=== PATIENT | female | born 1980 | race Caucasian/White ===

== ENCOUNTER 2017-01-24 09:06 | Emergency (ER) | payer OTHER ==
--- NOTE | 2017-01-24 09:49 | UC ---
Complaint Female HPI - HPI Summary HPI Summary: 36 yo female with a 4 day hx of dysuria /urgency and frequency hematuria x 1 this am no f/c no abd pain no n/v hx of pyelo hx of kidney stones - History Of Current Complaint Chief Complaint: UCGU Stated Complaint: URINARY Time Seen by Provider: 01/24/17 09:45 Hx Last Menstrual Period: USES DEPO , WAS SPOTTING THIS MORNING Onset/Duration: Gradual Onset, Lasting Hours Timing: Intermittent, Lasting Seconds Severity Initially: Mild Severity Currently: None Pain Intensity: 0 - only hurts while urinating Pain Scale Used: 0-10 Numeric Character: Burning Aggravating Factor(s): Urination Associated Signs And Symptoms: Negative: Fever, Back Pain, Vaginal Bleeding/ Discharge, Nausea, Vomiting(# Of Episodes =), Genital Swelling, Genital Blisters , Retained Foregin Body (Specify) Related Hx: Similar Episode/Dx as: - uti - Allergies/Home Medications Allergies/Adverse Reactions: Allergies Allergy/AdvReac Type Severity Reaction Status Date / Time Cephalosporins Allergy Severe respiratory Verified 01/24/17 09:23 Sulfamethoxazole Allergy Severe respiratory Verified 01/24/17 09:23 w/Trimethoprim [From Bactrim] Iodinated Diagnostic Agents Allergy Hives Verified 01/24/17 09:23 Tramadol [From Ultram] Allergy Anaphylatic Verified 01/24/17 09:23 Shock Metoclopramide [From Reglan] AdvReac Agitation Verified 01/24/17 09:23 Home Medications: Home Medications medroxyPROGESTERone ACETATE* [DEPO-Provera] 150 mg IM 01/24/17 [History] PMH/Surg Hx/FS Hx/Imm Hx Endocrine History Of: Denies: Diabetes, Thyroid Disease, Hyperthyroidism, Hypothyroidism, Dyslipidemia Cardiovascular History Of: Denies: Cardiac Disorders, Hypertension, Pacemaker/ICD, Myocardial Infarction , Congestive Heart Failure, Atrial Fibrillation, Deep Vein Thrombosis, Bleeding Disorders Respiratory History Of: Reports: Asthma Denies: COPD, Bronchitis, Pneumonia, Pulmonary Embolism GI/ History Of: Reports: Kidney Stones - DX 9MM RIGHT STONE X2 WKS AGO Denies: Gastroesophageal Reflux, Ulcer, Gastrointestinal Bleed, Gall Bladder Disease, Diverticulitis, Renal Disease, Urosepsis Neurological History Of: Reports: Migraine Denies: TIA, CVA, Dementia, Seizures Psychological History Of: Reports: Anxiety Denies: Depression, Bipolar Disorder, Schizophrenia, Post Traumatic Stress Disorder Cancer History Of: Denies: Lung Cancer, Colorectal Cancer, Breast Cancer, Prostate Cancer Other History Of: Negative For: HIV, Hepatitis B, Hepatitis C, Anticoagulant Therapy - Surgical History Surgical History: Yes Surgery Procedure, Year, and Place: TONSILS; APPENDIX; CHIARI MALFORMATION DECOMPRESSION C1 - C2 LAMINECTOMY -JUNE 22 2014 DONE AT [facility]. CHIARI MALFORMATION DECOMPRESSION REPEAT 06/28/15, OP SITE OK FOR MRI SCAN PER DR JASSO BASED ON CT 10/26/16 - Family History Known Family History: Positive: Cardiac Disease - father-chf, Respiratory Disease - MOTHER COPD Family History: Father: CHF - Social History Alcohol Use: Rare Substance Use Type: None, Prescribed Smoking Status (MU): Heavy Every Day Tobacco Smoker Type: Cigarettes Amount Used/How Often: 1/2 PPD Length of Time of Smoking/Using Tobacco: 18 Years Have You Smoked in the Last Year: Yes When Did the Patient Quit Smoking/Using Tobacco: 2 years Household Exposure Type: Cigarettes - Immunization History Most Recent Influenza Vaccination: July 2016 Most Recent Tetanus Shot: 11/23/2010 Most Recent Pneumonia Vaccination: 11/23/2010 Review of Systems Constitutional: Negative Skin: Negative Eyes: Negative ENT: Negative Respiratory: Negative Cardiovascular: Negative Gastrointestinal: Negative Genitourinary: Dysuria, Hematuria, Frequency, Urgency Motor: Negative Neurovascular: Negative Musculoskeletal: Negative Neurological: Negative Psychological: Negative All Other Systems Reviewed And Are Negative: Yes Physical Exam Triage Information Reviewed: Yes Appearance: Well-Appearing, No Pain Distress, Well-Nourished Vital Signs: Initial Vital Signs Temp 98.8 F 01/24/17 09:26 Pulse 102 01/24/17 09:26 Resp 20 01/24/17 09:26 BP 121/74 01/24/17 09:26 Pulse Ox 99 01/24/17 09:26 Vital Signs Reviewed: Yes Eyes: Positive: Conjunctiva Clear ENT: Negative: Hearing grossly normal, Nasal congestion, Nasal drainage, TMs normal, Tonsillar swelling, Tonsillar exudate, Trismus, Muffled/hoarse voice Neck: Positive: Supple, Nontender Respiratory: Positive: Lungs clear, Normal breath sounds, No respiratory distress, No accessory muscle use Cardiovascular: Positive: RRR, No Murmur Abdomen Description: Positive: Nontender, No Organomegaly, Soft, CVA Tenderness (R) - mild Bowel Sounds: Positive: Present Musculoskeletal: Positive: ROM Intact, No Edema Neurological: Positive: Alert Psychological Exam: Normal Skin Exam: Normal Complaint Female Dx - Differential Dx/Diagnosis Provider Diagnoses: acute cystitis Discharge - Discharge Plan Condition: Stable Disposition: HOME Prescriptions: Ciprofloxacin TAB* [Cipro Tab*] 250 mg PO BID #14 tab Fluconazole 150 MG (NF) [Diflucan 150 mg (NF)] 150 mg PO ONCE #1 tab Phenazopyridine TAB* [Pyridium TAB*] 100 mg PO TID #6 tab Patient Education Materials: Urinary Tract Infection in Women (ED) Referrals: Sheyla Nick MD [Primary Care Provider] - 2 Days (if not better) Additional Instructions: I suspect your symptoms are due to a UTI a culture is pending I expect you to feel better in 12-24 hours and back to normal in 48 hour If not please get rechecked TO ER for severe back pain /high fever or vomiting
[2017-01-24 10:03] VITALS: BP 124/78
== END 2017-01-24 10:03 | disposition home or self-care (01) ==
LOC: UCCORT 09:06
DX: N30.01 Acute cystitis with hematuria (principal); Z88.5 Allergy status to narcotic agent; Z88.1 Allergy status to other antibiotic agents; Z88.2 Allergy status to sulfonamides; F17.210 Nicotine dependence, cigarettes, uncomplicated
CPT/HCPCS: 87086; 99212; G0463

== ENCOUNTER 2017-02-12 09:46 | Emergency (ER) | payer OTHER ==
--- NOTE | 2017-02-12 11:08 | UC ---
Throat Pain/Nasal Madi HPI - HPI Summary HPI Summary: complaint of cough that started approx5 daysa go nasal congestion, sinus pressure fever of 100-102 during the last 2 days has been wheezing and feels tight hasn't slept for 3 nights d/t coughing using delsum and albuterol without relief using albuterol Q4 hours for the last 2 days - History of Current Complaint Stated Complaint: UPPER RESPRITORY Time Seen by Provider: 02/12/17 11:03 Hx Obtained From: Patient Hx Last Menstrual Period: 10/03/16 - Allergies/Home Medications Allergies/Adverse Reactions: Allergies Allergy/AdvReac Type Severity Reaction Status Date / Time Cephalosporins Allergy Severe respiratory Verified 02/12/17 11:31 Sulfamethoxazole Allergy Severe respiratory Verified 02/12/17 11:31 w/Trimethoprim [From Bactrim] Iodinated Diagnostic Agents Allergy Hives Verified 02/12/17 11:31 Tramadol [From Ultram] Allergy Anaphylatic Verified 02/12/17 11:31 Shock Metoclopramide [From Reglan] AdvReac Agitation Verified 02/12/17 11:31 PMH/Surg Hx/FS Hx/Imm Hx Previously Healthy: No - asthma Endocrine History Of: Denies: Diabetes, Thyroid Disease, Hyperthyroidism, Hypothyroidism, Dyslipidemia Cardiovascular History Of: Denies: Cardiac Disorders, Hypertension, Pacemaker/ICD, Myocardial Infarction , Congestive Heart Failure, Atrial Fibrillation, Deep Vein Thrombosis, Bleeding Disorders Respiratory History Of: Reports: Asthma Denies: COPD, Bronchitis, Pneumonia, Pulmonary Embolism GI/ History Of: Reports: Kidney Stones - DX 9MM RIGHT STONE X2 WKS AGO Denies: Gastroesophageal Reflux, Ulcer, Gastrointestinal Bleed, Gall Bladder Disease, Diverticulitis, Renal Disease, Urosepsis Neurological History Of: Reports: Migraine Denies: TIA, CVA, Dementia, Seizures Psychological History Of: Reports: Anxiety Denies: Depression, Bipolar Disorder, Schizophrenia, Post Traumatic Stress Disorder Cancer History Of: Denies: Lung Cancer, Colorectal Cancer, Breast Cancer, Prostate Cancer Other History Of: Negative For: HIV, Hepatitis B, Hepatitis C, Anticoagulant Therapy - Surgical History Surgical History: Yes Surgery Procedure, Year, and Place: TONSILS; APPENDIX; CHIARI MALFORMATION DECOMPRESSION C1 - C2 LAMINECTOMY -JUNE 22 2014 DONE AT [facility]. CHIARI MALFORMATION DECOMPRESSION REPEAT 06/28/15, OP SITE OK FOR MRI SCAN PER DR JASSO BASED ON CT 10/26/16 - Family History Known Family History: Positive: None, Cardiac Disease - father-chf, Respiratory Disease - MOTHER COPD Negative: Hypertension Family History: Father: CHF - Social History Occupation: Employed Full-time Lives: With Family Alcohol Use: Rare Substance Use Type: None, Prescribed Smoking Status (MU): Heavy Every Day Tobacco Smoker Type: Cigarettes Amount Used/How Often: 1/2 PPD Length of Time of Smoking/Using Tobacco: 18 Years Have You Smoked in the Last Year: Yes When Did the Patient Quit Smoking/Using Tobacco: 2 years Household Exposure Type: Cigarettes Cessation Counseling: Patient Advised to Stop - Immunization History Most Recent Influenza Vaccination: July 2016 Most Recent Tetanus Shot: 11/23/2010 Most Recent Pneumonia Vaccination: 11/23/2010 Review of Systems Constitutional: Fever, Chills Skin: Negative Eyes: Negative ENT: Nasal Discharge Respiratory: Cough Cardiovascular: Negative Gastrointestinal: Negative Genitourinary: Negative Motor: Negative Neurovascular: Negative Musculoskeletal: Negative Neurological: Negative Psychological: Negative All Other Systems Reviewed And Are Negative: Yes Physical Exam Triage Information Reviewed: Yes Appearance: Well-Nourished Vital Signs Reviewed: Yes Eyes: Positive: Conjunctiva Clear ENT: Positive: Pharyngeal erythema, Nasal congestion, Nasal drainage, TMs normal , Other: - maxillary and frontal sinus tenderness Neck: Positive: No Lymphadenopathy Respiratory: Positive: No respiratory distress, No accessory muscle use, Rhonchi - LLL, Wheezing Cardiovascular: Positive: RRR, No Murmur Abdomen Description: Positive: Nontender, Soft Bowel Sounds: Positive: Present Musculoskeletal Exam: Normal Neurological: Positive: Alert Psychological Exam: Normal Skin Exam: Normal Throat Pain/Nasal Course/Dx - Course Course Of Treatment: exam completed. will treat for asthma exacerbation/ sinusitis with PCP followup. refuses chest x-ray - Differential Dx/Diagnosis Differential Diagnosis/HQI/PQRI: URI, Other - bronchitis, pneumonia, asthma exacerbation Provider Diagnoses: asthma exacerbation Discharge - Discharge Plan Condition: Stable Disposition: HOME Prescriptions: Amoxicillin/Clavulanate TAB* [Augmentin TAB 875*] 875 mg PO BID #20 tab Benzonatate [Benzonatate 200 MG CAP] 200 mg PO TID #30 cap predniSONE TAB* [Deltasone TAB*] 50 mg PO DAILY #5 tab Patient Education Materials: Asthma (ED) Referrals: Sheyla iNck MD [Primary Care Provider] - Additional Instructions: Please take antibiotic as directed Use your albuterol inhaler every 4-6 hours when needed for wheezing, shortness of breath or uncontrolled coughing. Increase fluids and rest Take acetaminophen or ibuprofen for fever or pain Please review your discharge instructions. If your symptoms do not improve please call your primary care provider or return to urgent care.
[2017-02-12 11:37] VITALS: BP 122/63
== END 2017-02-12 11:47 | disposition home or self-care (01) ==
LOC: UCCORT 09:46
DX: J45.901 Unspecified asthma with (acute) exacerbation (principal); Z88.1 Allergy status to other antibiotic agents; Z88.5 Allergy status to narcotic agent; Z88.2 Allergy status to sulfonamides; F17.210 Nicotine dependence, cigarettes, uncomplicated
CPT/HCPCS: 99211; G0463

== ENCOUNTER 2017-03-19 11:00 | Emergency (ER) | payer OTHER ==
[2017-03-19 12:52] VITALS: BP 150/83
[2017-03-19] MEDS ORDERED: Albuterol/Ipratropium NEB.SOL* Albuterol 2.5 MG/Ipratropium 0.5 MG 3 ML INH ONE (13:12)
--- NOTE | 2017-03-19 14:36 | UC ---
Throat Pain/Nasal Madi HPI - HPI Summary HPI Summary: WHEEZING, WET PRODUCTIVE COUGH, FEVER, SINUS CONGESTION FOR A WEEK. WORSE LAST THREE DAYS - History of Current Complaint Chief Complaint: UCRespiratory Stated Complaint: RESPIRATORY Time Seen by Provider: 03/19/17 13:05 Hx Obtained From: Patient Hx Last Menstrual Period: Depo Shot Onset/Duration: Gradual Onset, Lasting Weeks, Still Present Severity: Moderate Pain Intensity: 0 Pain Scale Used: 0-10 Numeric Cough: Productive Associated Signs & Symptoms: Positive: Hoarseness, Sinus Discomfort, Nasal Discharge, Fever - Epiglottits Risk Factors Epiglottis Risk Factors: Negative - Allergies/Home Medications Allergies/Adverse Reactions: Allergies Allergy/AdvReac Type Severity Reaction Status Date / Time Cephalosporins Allergy Severe respiratory Verified 03/19/17 12:52 Sulfamethoxazole Allergy Severe respiratory Verified 03/19/17 12:52 w/Trimethoprim [From Bactrim] Iodinated Diagnostic Agents Allergy Hives Verified 03/19/17 12:52 Tramadol [From Ultram] Allergy Anaphylatic Verified 03/19/17 12:52 Shock Metoclopramide [From Reglan] AdvReac Agitation Verified 03/19/17 12:52 Home Medications: Home Medications [id number] W/ APAP [Delsym Cough + Cold D... 1-02-302-325 mg/10Ml] 30 ml PO BID PRN 03/19/17 [History Confirmed 03/19/17] PMH/Surg Hx/FS Hx/Imm Hx Previously Healthy: Yes Endocrine History Of: Denies: Diabetes, Thyroid Disease, Hyperthyroidism, Hypothyroidism, Dyslipidemia Cardiovascular History Of: Denies: Cardiac Disorders, Hypertension, Pacemaker/ICD, Myocardial Infarction , Congestive Heart Failure, Atrial Fibrillation, Deep Vein Thrombosis, Bleeding Disorders Respiratory History Of: Reports: Asthma Denies: COPD, Bronchitis, Pneumonia, Pulmonary Embolism GI/ History Of: Reports: Kidney Stones - DX 9MM RIGHT STONE X2 WKS AGO Denies: Gastroesophageal Reflux, Ulcer, Gastrointestinal Bleed, Gall Bladder Disease, Diverticulitis, Renal Disease, Urosepsis Neurological History Of: Reports: Migraine Denies: TIA, CVA, Dementia, Seizures Psychological History Of: Reports: Anxiety Denies: Depression, Bipolar Disorder, Schizophrenia, Post Traumatic Stress Disorder Cancer History Of: Denies: Lung Cancer, Colorectal Cancer, Breast Cancer, Prostate Cancer Other History Of: Negative For: HIV, Hepatitis B, Hepatitis C, Anticoagulant Therapy - Surgical History Surgical History: Yes Surgery Procedure, Year, and Place: TONSILS; APPENDIX; CHIARI MALFORMATION DECOMPRESSION C1 - C2 LAMINECTOMY -JUNE 22 2014 DONE AT [facility]. CHIARI MALFORMATION DECOMPRESSION REPEAT 06/28/15, OP SITE OK FOR MRI SCAN PER DR JASSO BASED ON CT 10/26/16 - Family History Known Family History: Positive: None, Cardiac Disease - father-chf, Respiratory Disease - MOTHER COPD Negative: Hypertension Family History: Father: CHF - Social History Occupation: Employed Part-time Lives: With Family Alcohol Use: Rare Substance Use Type: None Smoking Status (MU): Heavy Every Day Tobacco Smoker Type: Cigarettes Amount Used/How Often: 1/2 PPD Length of Time of Smoking/Using Tobacco: 18 Years Have You Smoked in the Last Year: Yes When Did the Patient Quit Smoking/Using Tobacco: 2 years Household Exposure Type: Cigarettes Cessation Counseling: Patient Advised to Stop - Immunization History Most Recent Influenza Vaccination: July 2016 Most Recent Tetanus Shot: 11/23/2010 Most Recent Pneumonia Vaccination: 11/23/2010 Review of Systems Constitutional: Fever, Fatigue Skin: Negative Eyes: Negative ENT: Ear Ache, Nasal Discharge Respiratory: Cough Cardiovascular: Negative Gastrointestinal: Negative Genitourinary: Negative Motor: Negative Neurovascular: Negative Musculoskeletal: Negative Neurological: Negative Psychological: Negative All Other Systems Reviewed And Are Negative: Yes Physical Exam Triage Information Reviewed: Yes Appearance: No Pain Distress, Well-Nourished, Ill-Appearing Vital Signs: Initial Vital Signs Temp 99.4 F 03/19/17 12:47 Pulse 109 03/19/17 12:47 Resp 20 03/19/17 12:47 BP 150/83 03/19/17 12:47 Pulse Ox 97 03/19/17 12:47 Vital Signs Reviewed: Yes Eye Exam: Normal Eyes: Positive: Conjunctiva Clear ENT: Positive: Hearing grossly normal, Pharynx normal, TM bulging, TM dull Dental Exam: Normal Neck exam: Normal Neck: Positive: Supple, Nontender, No Lymphadenopathy Respiratory Exam: Other - COUGH Respiratory: Positive: Chest non-tender, No respiratory distress, No accessory muscle use, Wheezing Cardiovascular Exam: Normal Cardiovascular: Positive: RRR, No Murmur, Pulses Normal, Brisk Capillary Refill Abdominal Exam: Normal Musculoskeletal Exam: Normal Musculoskeletal: Positive: Strength Intact, ROM Intact Neurological Exam: Normal Psychological Exam: Normal Skin Exam: Normal Throat Pain/Nasal Course/Dx - Differential Dx/Diagnosis Differential Diagnosis/HQI/PQRI: Sinusitis, URI Provider Diagnoses: SINUSITIS; BRONCHITIS WITH BRONCHOSPASM Discharge - Discharge Plan Condition: Stable Disposition: HOME Prescriptions: Azithromycin TAB* [Zithromax TAB (Z-ANGY) 250 mg #6 tabs] 250 mg PO DAILY #6 tab predniSONE TAB* [Deltasone TAB*] 10 mg PO DAILY #28 tab Patient Education Materials: Sinusitis (ED), Acute Bronchitis (ED), Bronchospasm (ED) Referrals: Sheyla Nick MD [Primary Care Provider] -
== END 2017-03-19 13:40 | disposition home or self-care (01) ==
LOC: UCCORT 11:00
DX: J32.9 Chronic sinusitis, unspecified (principal); J20.9 Acute bronchitis, unspecified; G43.909 Migraine, unspecified, not intractable, without status migrainosus; F41.9 Anxiety disorder, unspecified; Z87.442 Personal history of urinary calculi; Z88.1 Allergy status to other antibiotic agents; Z88.5 Allergy status to narcotic agent; Z88.2 Allergy status to sulfonamides; F17.210 Nicotine dependence, cigarettes, uncomplicated
CPT/HCPCS: 99212; A9270-GY; G0463

== ENCOUNTER 2017-03-21 11:43 | Emergency (ER) | payer OTHER ==
[2017-03-21 12:11] VITALS: BP 125/76
--- NOTE | 2017-03-21 12:17 | UC ---
Respiratory Complaint HPI - HPI Summary HPI Summary: She was here 02/12 for cough and then again two days ago. She has been compliant with antibiotics and prednisone. SHe says the cough is the worse symptom. no fever or hemoptysis. she has no followed up with pcp. - History of Current Complaint Chief Complaint: UCRespiratory Stated Complaint: CHEST CONGESTION Time Seen by Provider: 03/21/17 11:58 Hx Obtained From: Patient Hx Last Menstrual Period: ON DEPO, DOES NOT HAVE REG PERIODS ?: No Onset/Duration: Gradual Onset Timing: Constant Severity Initially: Moderate Severity Currently: Moderate Character: Cough: Nonproductive Aggravating Factors: Deep Breaths, Recumbent Position Alleviating Factors: Bronchodilator Associated Signs And Symptoms: Positive: Wheezing, URI, Nasal Congestion. Negative: Fever, Chills, Pleuritic Chest Pain, Hemoptysis, Calf Pain, Calf Swelling, Edema, Hoarseness, Sinus Discomfort - Allergies/Home Medications Allergies/Adverse Reactions: Allergies Allergy/AdvReac Type Severity Reaction Status Date / Time Cephalosporins Allergy Severe respiratory Verified 03/21/17 12:00 Sulfamethoxazole Allergy Severe respiratory Verified 03/21/17 12:00 w/Trimethoprim [From Bactrim] Iodinated Diagnostic Agents Allergy Hives Verified 03/21/17 12:00 Tramadol [From Ultram] Allergy Anaphylatic Verified 03/21/17 12:00 Shock Metoclopramide [From Reglan] AdvReac Agitation Verified 03/21/17 12:00 PMH/Surg Hx/FS Hx/Imm Hx Endocrine History Of: Denies: Diabetes, Thyroid Disease, Hyperthyroidism, Hypothyroidism, Dyslipidemia Cardiovascular History Of: Denies: Cardiac Disorders, Hypertension, Pacemaker/ICD, Myocardial Infarction , Congestive Heart Failure, Atrial Fibrillation, Deep Vein Thrombosis, Bleeding Disorders Respiratory History Of: Reports: Asthma Denies: COPD, Bronchitis, Pneumonia, Pulmonary Embolism GI/ History Of: Reports: Kidney Stones - DX 9MM RIGHT STONE X2 WKS AGO Denies: Gastroesophageal Reflux, Ulcer, Gastrointestinal Bleed, Gall Bladder Disease, Diverticulitis, Renal Disease, Urosepsis Neurological History Of: Reports: Migraine Denies: TIA, CVA, Dementia, Seizures Psychological History Of: Reports: Anxiety Denies: Depression, Bipolar Disorder, Schizophrenia, Post Traumatic Stress Disorder Cancer History Of: Denies: Lung Cancer, Colorectal Cancer, Breast Cancer, Prostate Cancer Other History Of: Negative For: HIV, Hepatitis B, Hepatitis C, Anticoagulant Therapy - Surgical History Surgical History: Yes Surgery Procedure, Year, and Place: TONSILS; APPENDIX; CHIARI MALFORMATION DECOMPRESSION C1 - C2 LAMINECTOMY -JUNE 22 2014 DONE AT [facility]. CHIARI MALFORMATION DECOMPRESSION REPEAT 06/28/15, OP SITE OK FOR MRI SCAN PER DR JASSO BASED ON CT 10/26/16 - Family History Known Family History: Positive: None, Cardiac Disease - father-chf, Respiratory Disease - MOTHER COPD Negative: Hypertension Family History: Father: CHF - Social History Lives: With Family Alcohol Use: Rare Substance Use Type: None Smoking Status (MU): Heavy Every Day Tobacco Smoker Type: Cigarettes Amount Used/How Often: 1/2 PPD Length of Time of Smoking/Using Tobacco: 18 Years Have You Smoked in the Last Year: Yes When Did the Patient Quit Smoking/Using Tobacco: 2 years Household Exposure Type: Cigarettes - Immunization History Most Recent Influenza Vaccination: July 2016 Most Recent Tetanus Shot: 11/23/2010 Most Recent Pneumonia Vaccination: 11/23/2010 Review of Systems All Other Systems Reviewed And Are Negative: Yes Physical Exam Triage Information Reviewed: Yes Appearance: Well-Appearing - No tachypnea or distress. pleasant and cooperative. she is talking in full sentences and has a RR of 12. HR noted in triage to be elevated. on my recheck it is 90., No Pain Distress, Well-Nourished Vital Signs: Initial Vital Signs Temp 99.8 F 03/21/17 12:03 Pulse 112 03/21/17 12:03 Resp 20 03/21/17 12:03 BP 125/76 03/21/17 12:03 Pulse Ox 98 03/21/17 12:03 Vital Signs Reviewed: Yes Eye Exam: Normal Eyes: Positive: Conjunctiva Clear ENT Exam: Normal ENT: Positive: Pharynx normal, Pharyngeal erythema, Nasal congestion, Nasal drainage, TMs normal. Negative: TM bulging, TM dull, TM red, Tonsillar swelling , Tonsillar exudate, Trismus Neck: Positive: Supple, Nontender, No Lymphadenopathy Respiratory Exam: Other - good air movement rachel. there is rachel scatterred wheezing. no rales. Respiratory: Positive: No respiratory distress, No accessory muscle use, Wheezing. Negative: Respiratory distress, Decreased breath sounds, Accessory muscle use, Crackles, Rhonchi, Stridor Cardiovascular: Positive: RRR, No Murmur, Pulses Normal, Brisk Capillary Refill. Negative: Tachycardia, Bradycardia Abdominal Exam: Normal Abdomen Description: Positive: Nontender, No Organomegaly, Soft Musculoskeletal Exam: Normal Musculoskeletal: Positive: Strength Intact, ROM Intact, No Edema Neurological: Positive: Alert, Muscle Tone Normal. Negative: Fatigued Psychological Exam: Normal Skin Exam: Normal Skin: Negative: rashes UC Diagnostic Evaluation - Laboratory O2 Sat by Pulse Oximetry: 98 Respiratory Course/Dx - Course Course Of Treatment: Prolonged bronchitis. There are no signs of pneumonia or severe infection. She is moving good air and no signs of severe asthma exacerbation. she agrees to f/u with pcp in the next 1-2 days for f/u. we will add tessalon perles and solumedrol IM. We have considered chf, pulm edema, FB, severe asthma, severe infection but clinically, there are nos signs of these. THis is most c/w with asthma exacerbation from reactive airway disease. - Differential Dx/Diagnosis Differential Diagnosis/HQI/PQRI: Airway Obstruction, Foreign Body, Aspiration, Asthma, Bronchitis, CHF, Pulmonary Edema, Influenza, Laryngitis, Lower Resp Infection, Pneumothorax, Pulmonary Embolism Provider Diagnoses: acute asthma exacerbation. Discharge - Discharge Plan Condition: Good Disposition: HOME Prescriptions: Benzonatate CAP* [Tessalon 100 MG CAP*] 100 mg PO TID PRN #20 cap PRN Reason: Cough Referrals: Sheyla Nick MD [Primary Care Provider] - 2 Days Additional Instructions: REturn to ED for any worsening at any point as we discussed.
--- NOTE | 2017-03-21 12:25 | RAD ---
Indication: Cough for 3 weeks. 2 views of the chest including dual energy PA views demonstrate no mediastinal shift. Heart is of normal size and configuration. Dove are clear. When compared to previous exam of April 15, 2016 no significant change is noted. IMPRESSION: No active cardiopulmonary disease is noted.
[2017-03-21] MEDS ORDERED: methylPREDNISolone SOD SUCC* 40 MG/ML VIAL IV ONE (12:30)
[2017-03-21] MEDS ORDERED: methylPREDNISolone SOD SUCC* 40 MG/ML VIAL IM ONE (12:34)
== END 2017-03-21 12:49 | disposition home or self-care (01) ==
LOC: UCCORT 11:43
DX: J45.901 Unspecified asthma with (acute) exacerbation (principal); Z88.1 Allergy status to other antibiotic agents; Z88.2 Allergy status to sulfonamides; Z88.8 Allergy status to other drugs, medicaments and biological substances; Z87.442 Personal history of urinary calculi; G43.909 Migraine, unspecified, not intractable, without status migrainosus; F41.9 Anxiety disorder, unspecified; F17.210 Nicotine dependence, cigarettes, uncomplicated
CPT/HCPCS: 71020; 99211; G0463; J2920

== ENCOUNTER 2017-05-24 13:28 | Emergency (ER) | payer MEDICAID, OTHER ==
[2017-05-24 14:08] VITALS: BP 132/67
[2017-05-24] MEDS ORDERED: Albuterol HFA INHALER* 8 gm MDI INH ONE (15:11)
--- NOTE | 2017-05-24 15:11 | UC ---
Lower Extremity/Ankle HPI - HPI Summary HPI Summary: The patient comes in today for: 1. Left foot and ankle pain: Onset: 2 weeks and she comes in today due to increasing pain. Palliative/provocative: Bearing weight makes it worse and touching the area makes it worse. Quality: [place]: Base of toes and lateral left ankle. Severity: 05/05 Time: Constant. Associated symptoms: Event: She fell down the steps and suffered an inversion injury. No treatment. She was able to put some weight on it. Previous treatment: None. Previous injury: She had a "dancer's fracture" of the same foot. * - History of Current Complaint Chief Complaint: UCLowerExtremity Stated Complaint: LEFT FOOT INJURY Time Seen by Provider: 05/24/17 14:59 Hx Obtained From: Patient Hx Last Menstrual Period: "I don't get it on Depo." - Allergies/Home Medications Allergies/Adverse Reactions: Allergies Allergy/AdvReac Type Severity Reaction Status Date / Time Cephalosporins Allergy Severe respiratory Verified 05/24/17 14:03 Sulfamethoxazole Allergy Severe respiratory Verified 05/24/17 14:03 w/Trimethoprim [From Bactrim] Iodinated Diagnostic Agents Allergy Hives Verified 05/24/17 14:03 Tramadol [From Ultram] Allergy Anaphylatic Verified 05/24/17 14:03 Shock Metoclopramide [From Reglan] AdvReac Agitation Verified 05/24/17 14:03 Home Medications: Home Medications Butalb/Acetamin/Caff TAB* [Fioricet TAB*] 1 tab PO Q6H PRN 05/24/17 [History Confirmed 05/24/17] PMH/Surg Hx/FS Hx/Imm Hx Previously Healthy: No - Chiari malformation, s/p brain surgery, allergies. Respiratory History: Asthma Neurological History: Migraine Other History Of: Negative For: HIV, Hepatitis B, Hepatitis C, Anticoagulant Therapy - Surgical History Surgical History: Yes Surgery Procedure, Year, and Place: TONSILS; APPENDIX; CHIARI MALFORMATION DECOMPRESSION C1 - C2 LAMINECTOMY -JUNE 22 2014 DONE AT [facility]. CHIARI MALFORMATION DECOMPRESSION REPEAT 06/28/15, OP SITE OK FOR MRI SCAN PER DR JASSO BASED ON CT 10/26/16 - Family History Known Family History: Positive: Cardiac Disease - father-chf, Respiratory Disease - MOTHER COPD Negative: Hypertension Family History: Father: CHF - Social History Occupation: Employed Full-time Alcohol Use: Rare Substance Use Type: None Smoking Status (MU): Heavy Every Day Tobacco Smoker Type: Cigarettes Amount Used/How Often: 1 PPD Length of Time of Smoking/Using Tobacco: Since Age 19 Have You Smoked in the Last Year: Yes When Did the Patient Quit Smoking/Using Tobacco: 2 years Household Exposure Type: Cigarettes - Immunization History Most Recent Influenza Vaccination: July 2016 Most Recent Tetanus Shot: 11/23/2010 Most Recent Pneumonia Vaccination: 11/23/2010 Review of Systems Constitutional: Negative Skin: Negative Eyes: Negative ENT: Negative Respiratory: Shortness Of Breath - she states that this is from her asthma-- request albuterol dosing. Cardiovascular: Negative Gastrointestinal: Negative Genitourinary: Negative Motor: Negative All Other Systems Reviewed And Are Negative: Yes Physical Exam Triage Information Reviewed: Yes Appearance: Well-Appearing, No Pain Distress, Well-Nourished, Other: - She is able to bear weight, but does favor her left foot. Vital Signs: Initial Vital Signs Temp 99.4 F 05/24/17 14:00 Pulse 102 05/24/17 14:00 Resp 16 05/24/17 14:00 BP 132/67 05/24/17 14:00 Pulse Ox 98 05/24/17 14:00 Vital Signs Reviewed: Yes Eyes: Positive: Conjunctiva Clear. Negative: Discharge ENT: Positive: Hearing grossly normal, Other: - Nicotine staining of the dorsum of the tongue.. Negative: Pharyngeal erythema, Nasal congestion, Nasal drainage , TM bulging, TM dull, TM red, Tonsillar swelling, Tonsillar exudate Dental: Negative: Gross Decay/Caries @, Dental Fracture @ Neck: Positive: Supple, Nontender, No Lymphadenopathy. Negative: Nuchal Rigidity Respiratory: Positive: No respiratory distress, No accessory muscle use, Wheezing - Slight generalized wheezing. Good air movement.. Negative: Rhonchi Cardiovascular: Positive: RRR, No Murmur Abdomen Description: Positive: Nontender, No Organomegaly, Soft Musculoskeletal: Positive: Strength Intact, ROM Intact Neurological: Positive: Alert, Muscle Tone Normal Psychological: Positive: Age Appropriate Behavior, Consolable Skin: Negative: rashes, breakdown Diagnostics - Radiology No standard instances Xray Interpretation: Positive (See Comments) - Foot: IMPRESSION: NO EVIDENCE FOR ACUTE FRACTURE. Ankle: IMPRESSION: SOFT TISSUE SWELLING AND PROBABLE SMALL NONDISPLACED FRACTURE OF THE DISTAL FIBULAR TIP. Lower Extremity Course/Dx - Course Course Of Treatment: The patient had come out before I went in to see her stating that she was about to leave. I told her that I was reviewing her chart and would be right in. She stated that she "just wants to go home" so her care options here were discussed in light of her time constraints. She wanted an x- ray which was done, but she did not want to wait for the radiologist read. She refused any medications at this time other than the albuterol inhaler which was used and given to her. A call was placed to the patient (no answer, but message left) for her to call back. She eventaully did and the result of the x- ray was discussed. She agreed to come back for a CAM book and crutches and the phone number for DR. Curiel. Call placed to the patient (she left before the full radiologist report was back) to tell her about the reading. - Differential Dx/Diagnosis Provider Diagnoses: Left foot contusion. Left ankle sprain Discharge - Discharge Plan Condition: Stable Disposition: HOME Patient Education Materials: Contusion in Adults (ED), Ankle Sprain (ED) Referrals: Sheyla Nick MD [Primary Care Provider] - 1 Week (Please see your primary care provider in about one to two weeks to see how well you are doing. If you get worse, please be seen sooner.) Additional Instructions: Use [id number] Tylenol taking no more than 3,000 mg a day and no more than 1,000 mg per dose. Use the smaller dose to control the pain.
--- NOTE | 2017-05-24 15:46 | RAD ---
INDICATION: Left ankle injury. TECHNIQUE: 3 views of the left ankle were obtained. FINDINGS: There is soft tissue swelling present along the anterolateral aspect of the ankle. There is irregularity of the distal fibular tip most consistent with a nondisplaced fracture. No other fractures are seen. Joint spaces appear maintained. IMPRESSION: SOFT TISSUE SWELLING AND PROBABLE SMALL NONDISPLACED FRACTURE OF THE DISTAL FIBULAR TIP.
--- NOTE | 2017-05-24 15:49 | RAD ---
INDICATION: Left foot injury. TECHNIQUE: 3 views of the left foot were obtained. FINDINGS: The bones are in normal alignment. There appears to be an old healed fracture of the distal fifth metatarsal. No acute fracture is seen. Joint spaces appear maintained. IMPRESSION: NO EVIDENCE FOR ACUTE FRACTURE.
== END 2017-05-24 15:50 | disposition home or self-care (01) ==
LOC: UCCORT 13:28
DX: S90.32XA Contusion of left foot, initial encounter (principal); S93.402A Sprain of unspecified ligament of left ankle, initial encounter; W10.9XXA Fall (on) (from) unspecified stairs and steps, initial encounter; F17.210 Nicotine dependence, cigarettes, uncomplicated
CPT/HCPCS: 99212; A9270-GY; G0463

== ENCOUNTER 2017-06-06 16:22 | Emergency (ER) | payer MEDICAID ==
[2017-06-06 16:52] VITALS: BP 137/82
--- NOTE | 2017-06-06 16:54 | UC ---
Ziggy Condon Benjamin, scribed for Samuel Yap MD on 06/06/17 at 1645 . Headache HPI - HPI Summary HPI Summary: 36yo female c/o pariental TURNER. Pt has hx of migraine and states that her current TURNER is identical to her prior migraines. Pt woke up this morning with her TURNER, which started mild but progressively worsened throughout the day. Pt denies fever, any focal deficits, or visual changes. She had nausea and one episode of vomiting. She took zofran at home. She is out of her fioricet, and requests a refill. She sees Dr Arriola in June for follow up. Pt states that heat and humidity are triggers for her migraines. PMHx includes anxiety, asthma, migraines, and Chiari malformation. FHx of COPD and CHF. Pt is a smoker. - History Of Current Complaint Chief Complaint: UCHeadache Stated Complaint: HEADACHE Time Seen by Provider: 06/06/17 16:36 Hx Obtained From: Patient Hx Last Menstrual Period: ON DEPOPROVERA ?: No Onset/Duration: Sudden Onset - this morning, Lasting Hours, Worse Since - progressively worsening Onset Of Symptoms: Gradual, Still Present Initially Headache Was: Mild Currently Pain Is: Moderate Timing: Constant Location of Headache: Parietal Aggravating Factor: Nothing Allevating Factors: Nothing Associated Signs And Symptoms: Positive: Negative. Negative: Dizziness, Nausea , Fever, Neck Pain, Neck Stiffness, Decreased LOC, Visual Changes - Allergies/Home Medications Allergies/Adverse Reactions: Allergies Allergy/AdvReac Type Severity Reaction Status Date / Time Cephalosporins Allergy Severe respiratory Verified 06/06/17 16:29 Sulfamethoxazole Allergy Severe respiratory Verified 06/06/17 16:29 w/Trimethoprim [From Bactrim] Iodinated Diagnostic Agents Allergy Hives Verified 06/06/17 16:29 Tramadol [From Ultram] Allergy Anaphylatic Verified 06/06/17 16:29 Shock Metoclopramide [From Reglan] AdvReac Agitation Verified 06/06/17 16:29 Home Medications: Home Medications [id number] [Excedrin Migraine] 2 tab PO PRN 06/06/17 [ History] PMH/Surg Hx/FS Hx/Imm Hx Previously Healthy: No Respiratory History: Asthma Neurological History: Migraine Psychological History: Anxiety Other History Of: Negative For: HIV, Hepatitis B, Hepatitis C, Anticoagulant Therapy - Surgical History Surgical History: Yes Surgery Procedure, Year, and Place: TONSILS; APPENDIX; CHIARI MALFORMATION DECOMPRESSION C1 - C2 LAMINECTOMY -JUNE 22 2014 DONE AT [facility]. CHIARI MALFORMATION DECOMPRESSION REPEAT 06/28/15, OP SITE OK FOR MRI SCAN PER DR JASSO BASED ON CT 10/26/16 - Family History Known Family History: Positive: None, Cardiac Disease - father-chf, Respiratory Disease - MOTHER COPD Negative: Hypertension Family History: Father: CHF - Social History Occupation: Employed Full-time Lives: With Family Alcohol Use: Rare Substance Use Type: None Smoking Status (MU): Heavy Every Day Tobacco Smoker Type: Cigarettes Amount Used/How Often: 1/2 PPD Length of Time of Smoking/Using Tobacco: Since Age 19 Have You Smoked in the Last Year: Yes When Did the Patient Quit Smoking/Using Tobacco: 2 years Household Exposure Type: Cigarettes - Immunization History Most Recent Influenza Vaccination: July 2016 Most Recent Tetanus Shot: 11/23/2010 Most Recent Pneumonia Vaccination: 11/23/2010 Review of Systems Constitutional: Negative Skin: Negative Eyes: Negative ENT: Negative Respiratory: Negative Cardiovascular: Negative Gastrointestinal: Negative Genitourinary: Negative Motor: Negative Neurovascular: Negative Musculoskeletal: Negative Neurological: Headache - migraine like TURNER Psychological: Negative All Other Systems Reviewed And Are Negative: Yes Physical Exam Triage Information Reviewed: Yes Appearance: Well-Appearing, No Pain Distress, Well-Nourished Vital Signs: Initial Vital Signs Temp 99.1 F 06/06/17 16:25 Pulse 108 06/06/17 16:25 Resp 16 06/06/17 16:25 BP 137/82 06/06/17 16:25 Pulse Ox 97 06/06/17 16:25 Vital Signs Reviewed: Yes Eyes: Positive: Conjunctiva Clear, Other: - no photophobia ENT: Positive: Normal ENT inspection Neck: Positive: Supple, Nontender. Negative: Nuchal Rigidity Respiratory: Positive: Chest non-tender, Lungs clear Cardiovascular: Positive: RRR, No Murmur Musculoskeletal: Positive: Strength Intact, ROM Intact Neurological: Positive: Alert, Muscle Tone Normal, Other: - CN 2-12 grossly intact, strength 5/5 throughout, sensory grossly intact throughout. Gait steady and normal. Finger to nose smooth. She speaks full coherent sentences. Psychological: Positive: Normal Response To Family, Age Appropriate Behavior, Other: Skin Exam: Normal Headache Course/Dx - Course Course Of Treatment: Reviewed pt's medications list. Patient with headache typical for her migraine. Will refill her firoricet. ISTOP number [id number] shows no recent prescriptions. - Differential Dx/Diagnosis Provider Diagnoses: migraine headache Discharge - Discharge Plan Condition: Good Disposition: HOME Prescriptions: Butalb/Acetamin/Caff TAB* [Fioricet TAB*] 1 tab PO Q6H PRN #14 tab MDD 4 PRN Reason: Headache Patient Education Materials: Migraine Headache (ED) Referrals: Sheyla Nick MD [Primary Care Provider] - 1 Week Kevin Arriola MD [Medical Doctor] - (at your appointment in June) The documentation as recorded by the Ziggy orourke Benjamin accurately reflects the service I personally performed and the decisions made by , Samuel Yap MD.
== END 2017-06-06 16:58 | disposition home or self-care (01) ==
LOC: UCEAST 16:22
DX: G43.909 Migraine, unspecified, not intractable, without status migrainosus (principal); J45.909 Unspecified asthma, uncomplicated; F41.9 Anxiety disorder, unspecified; Z88.5 Allergy status to narcotic agent; Z88.1 Allergy status to other antibiotic agents; Z88.2 Allergy status to sulfonamides; F17.210 Nicotine dependence, cigarettes, uncomplicated
CPT/HCPCS: 99212; G0463

== ENCOUNTER 2017-06-10 18:10 | Emergency (ER) | payer MEDICAID ==
[2017-06-10 18:22] VITALS: BP 125/71
--- NOTE | 2017-06-10 18:25 | UC ---
Headache HPI - HPI Summary HPI Summary: 36 year old female presents with complains headache. She has a history of migraines. - History Of Current Complaint Stated Complaint: HEADACHE Time Seen by Provider: 06/10/17 18:17 Hx Last Menstrual Period: "I don't get it on Depo." - Allergies/Home Medications Allergies/Adverse Reactions: Allergies Allergy/AdvReac Type Severity Reaction Status Date / Time Cephalosporins Allergy Severe respiratory Verified 06/06/17 16:29 Sulfamethoxazole Allergy Severe respiratory Verified 06/06/17 16:29 w/Trimethoprim [From Bactrim] Iodinated Diagnostic Agents Allergy Hives Verified 06/06/17 16:29 Sumatriptan [From Imitrex] Allergy Pain Verified 06/10/17 18:22 Tramadol [From Ultram] Allergy Anaphylatic Verified 06/06/17 16:29 Shock Metoclopramide [From Reglan] AdvReac Agitation Verified 06/06/17 16:29 Home Medications: Home Medications Ondansetron HCl [Zofran 8 MG TAB] 8 mg PO BID 06/10/17 [History Confirmed ] PMH/Surg Hx/FS Hx/Imm Hx Other History Of: Negative For: HIV, Hepatitis B, Hepatitis C, Anticoagulant Therapy - Surgical History Surgical History: Yes Surgery Procedure, Year, and Place: TONSILS; APPENDIX; CHIARI MALFORMATION DECOMPRESSION C1 - C2 LAMINECTOMY -JUNE 22 2014 DONE AT [facility]. CHIARI MALFORMATION DECOMPRESSION REPEAT 06/28/15, OP SITE OK FOR MRI SCAN PER DR JASSO BASED ON CT 10/26/16 - Family History Known Family History: Positive: None, Cardiac Disease - father-chf, Respiratory Disease - MOTHER COPD Negative: Hypertension Family History: Father: CHF - Social History Alcohol Use: Rare Substance Use Type: None Smoking Status (MU): Heavy Every Day Tobacco Smoker Type: Cigarettes Amount Used/How Often: 1 PPD Length of Time of Smoking/Using Tobacco: Since Age 19 Have You Smoked in the Last Year: Yes When Did the Patient Quit Smoking/Using Tobacco: 2 years Household Exposure Type: Cigarettes - Immunization History Most Recent Influenza Vaccination: July 2016 Most Recent Tetanus Shot: 11/23/2010 Most Recent Pneumonia Vaccination: 11/23/2010 Review of Systems Constitutional: Negative Skin: Negative Eyes: Negative ENT: Negative Respiratory: Negative Cardiovascular: Negative Gastrointestinal: Negative Genitourinary: Negative Motor: Negative Neurovascular: Negative Musculoskeletal: Other: - right shoulder pain Neurological: Headache Psychological: Negative All Other Systems Reviewed And Are Negative: Yes Physical Exam Triage Information Reviewed: Yes Appearance: Pain Distress Eye Exam: Normal ENT Exam: Normal Dental Exam: Normal Neck exam: Normal Neck: Positive: 1 Respiratory Exam: Normal Cardiovascular Exam: Normal Abdominal Exam: Normal Musculoskeletal Exam: Normal Musculoskeletal: Positive: Other: - right shoulder pain Neurological Exam: Normal Neurological: Positive: Lethargic Psychological Exam: Normal Skin Exam: Normal Headache Course/Dx - Differential Dx/Diagnosis Provider Diagnoses: HEADACHE Discharge - Discharge Plan Condition: Stable Disposition: HOME Prescriptions: Butalb/Acetamin/Caff TAB* [Fioricet TAB*] 1 tab PO Q6H PRN #12 tab MDD 4 PRN Reason: Headache Patient Education Materials: Migraine Headache (ED) Referrals: Kevin Arriola MD [Medical Doctor] - If Needed
== END 2017-06-10 19:04 | disposition home or self-care (01) ==
LOC: UCCORT 18:10
DX: R51 Headache (principal); Z87.891 Personal history of nicotine dependence
CPT/HCPCS: 99212; G0463

== ENCOUNTER 2017-06-12 13:04 | Emergency (ER) | payer MEDICAID ==
[2017-06-12] MEDS ORDERED: NS 0.9% 1000 ML* 1,000 ML IV ONE (16:23)
[2017-06-12] MEDS ORDERED: Ondansetron INJ* 2 MG/ML VIAL IV ONE (16:23)
[2017-06-12] MEDS ORDERED: HYDROmorphone* 1 MG/ML 1 ML SYR IV ONE (16:23)
[2017-06-12 18:13] VITALS: BP 119/78
--- NOTE | 2017-06-12 20:43 | ED ---
Debo Condon Edward, scribed for Ernie Key MD on 06/12/17 at 1619 . Headache - HPI Summary HPI Summary: 36 y/o female presents to ED c/o migraine TURNER for 5 days that is still present and has not decreased in severity. Pain is rated at a 8/10 in severity at triage. TURNER located at the top of the head. Aggravating factors: bright lights. Associated sx: nausea, dizziness. Patient states this is the "worst TURNER ever". PMHx migraines. - History Of Current Complaint Chief Complaint: EDDizziness Stated Complaint: HEADACHE Time Seen by Provider: 06/12/17 15:57 Hx Obtained From: Patient Hx Last Menstrual Period: "I don't get it on Depo." Onset/Duration: Sudden Onset, Started days ago - 5, Still Present Initially Headache Was: "Worst Headache Ever" Currently Pain Is: Severe Timing: Constant Character: Migraine Location of Headache: Other: - Top of head Aggravating Factor: Bright Lights Associated Signs And Symptoms: Dizziness, Nausea - Allergies/Home Medications Allergies/Adverse Reactions: Allergies Allergy/AdvReac Type Severity Reaction Status Date / Time Cephalosporins Allergy Severe respiratory Verified 06/06/17 16:29 Sulfamethoxazole Allergy Severe respiratory Verified 06/06/17 16:29 w/Trimethoprim [From Bactrim] Iodinated Diagnostic Agents Allergy Hives Verified 06/06/17 16:29 Sumatriptan [From Imitrex] Allergy Pain Verified 06/10/17 18:22 Tramadol [From Ultram] Allergy Anaphylatic Verified 06/06/17 16:29 Shock Metoclopramide [From Reglan] AdvReac Agitation Verified 06/06/17 16:29 PMH/Surg Hx/FS Hx/Imm Hx Previously Healthy: No Endocrine/Hematology History: Denies: Hx Anticoagulant Therapy, Hx Diabetes, Hx Thyroid Disease Cardiovascular History: Denies: Hx Congestive Heart Failure, Hx Deep Vein Thrombosis, Hx Hypertension , Hx Myocardial Infarction, Hx Pacemaker/ICD Respiratory History: Reports: Hx Asthma, Hx Bronchopulmonary Dysplasia, Hx Seasonal Allergies Denies: Hx Chronic Obstructive Pulmonary Disease (COPD), Hx Lung Cancer, Hx Pneumonia, Hx Pulmonary Embolism GI History: Reports: Other GI Disorders - low abd pain x4 days, hx left ovary cyst, appendectomy 99 Denies: Hx Gall Bladder Disease, Hx Gastrointestinal Bleed, Hx Ulcer, Hx Urosepsis History: Reports: Hx Kidney Stones - DX 9MM RIGHT STONE X2 WKS AGO Denies: Hx Renal Disease Musculoskeletal History: Reports: Hx Back Problems - L3-L4; L4-L5; L5-S1 Herniated Disc Sensory History: Reports: Hx Contacts or Glasses Denies: Hx Hearing Aid Opthamlomology History: Reports: Hx Contacts or Glasses Neurological History: Reports: Hx Headaches, Hx Migraine, Other Neuro Impairments/Disorders - chiari malformation Denies: Hx Dementia, Hx Seizures, Hx Transient Ischemic Attacks (TIA) Psychiatric History: Reports: Hx Anxiety Denies: Hx Depression, Hx Panic Disorder, Hx Schizophrenia, Hx Bipolar Disorder, Hx Substance Abuse - Surgical History Surgery Procedure, Year, and Place: TONSILS; APPENDIX; CHIARI MALFORMATION DECOMPRESSION C1 - C2 LAMINECTOMY -JUNE 22 2014 DONE AT [facility]. CHIARI MALFORMATION DECOMPRESSION REPEAT 06/28/15, OP SITE OK FOR MRI SCAN PER DR JASSO BASED ON CT 10/26/16 Hx Anesthesia Reactions: No - Immunization History Date of Tetanus Vaccine: n Date of Influenza Vaccine: n Infectious Disease History: Denies: Hx Clostridium Difficile, Hx Hepatitis, Hx Human Immunodeficiency Virus (HIV), Hx of Known/Suspected MRSA, Hx Shingles, Hx Tuberculosis, Hx Known/ Suspected VRE, Hx Known/Suspected VRSA, History Other Infectious Disease, Traveled Outside the [place] in Last 30 Days - Family History Known Family History: Positive: Cardiac Disease - father-chf, Respiratory Disease - MOTHER COPD Negative: Hypertension Family History: Father: CHF - Social History Alcohol Use: Rare Substance Use Type: Reports: None Hx Tobacco Use: Yes Smoking Status (MU): Heavy Every Day Tobacco Smoker Type: Cigarettes Amount Used/How Often: 1 PPD Length of Time of Smoking/Using Tobacco: Since Age 19 Have You Smoked in the Last Year: Yes Review of Systems Constitutional: Negative Eyes: Negative ENT: Negative Cardiovascular: Negative Respiratory: Negative Positive: Nausea Genitourinary: Negative Musculoskeletal: Negative Skin: Negative Neurological: Other - Dizziness Positive: Headache Psychological: Normal All Other Systems Reviewed And Are Negative: Yes Physical Exam Triage Information Reviewed: Yes Vital Signs On Initial Exam: Initial Vitals Temp Pulse Resp BP Pulse Ox 99.0 F 98 20 122/67 96 06/12/17 13:15 06/12/17 13:15 06/12/17 13:15 06/12/17 13:15 06/12/17 13:15 Vital Signs Reviewed: Yes Appearance: Positive: Well-Appearing, No Pain Distress Skin: Positive: Warm, Skin Color Reflects Adequate Perfusion, Dry Head/Face: Positive: Normal Head/Face Inspection Eyes: Positive: Normal ENT: Positive: Normal ENT inspection Neck: Positive: Supple, Nontender Respiratory/Lung Sounds: Positive: Clear to Auscultation, Breath Sounds Present Cardiovascular: Positive: RRR Abdomen Description: Positive: Nontender, Soft Bowel Sounds: Positive: Present Musculoskeletal: Positive: Normal Neurological: Positive: Normal Psychiatric: Positive: Normal, Affect/Mood Appropriate Diagnostics - Vital Signs Vital Signs Temp Pulse Resp BP Pulse Ox 06/12/17 15:11 98.8 F 92 20 120/62 98 06/12/17 13:15 99.0 F 98 20 122/67 96 - Laboratory Lab Statement: Any lab studies that have been ordered have been reviewed, and results considered in the medical decision making process. Headache Course/Dx - Course Course Of Treatment: Ms. Key presented with a typical migraine for her except that it has been present for 5 days. She improved with medications here and got some rest. - Diagnoses Provider Diagnoses: Migraine Discharge - Discharge Plan Condition: Stable Disposition: HOME Prescriptions: Butalb/Acetamin/Caff TAB* [Fioricet TAB*] 1 tab PO Q6H PRN #12 tab MDD 4 PRN Reason: Headache Patient Education Materials: Migraine Headache (ED) Referrals: [facility] [place] PHYSICIAN REFERRAL [Outside] - 3 Days (Please f/u in 2-3 days) The documentation as recorded by the Debo orourke Edward accurately reflects the service I personally performed and the decisions made by Shahid kamara Richard L, MD.
== END 2017-06-12 18:06 | disposition home or self-care (01) ==
LOC: ED 13:04
DX: R42 Dizziness and giddiness (principal); R11.0 Nausea
CPT/HCPCS: 96374; 96375; 99282; J1170; J2405

== ENCOUNTER 2017-06-18 12:20 | Emergency (ER) | payer MEDICAID ==
--- NOTE | 2017-06-18 12:22 | UC ---
Headache HPI - HPI Summary HPI Summary: 36 year old female presents with complains of severe headache. Patient is well known to me and was told to follow up with her neurologist or [facility]. I refuse to give her any Fioricet. - History Of Current Complaint Stated Complaint: SEVERE HEADACHE Time Seen by Provider: 06/18/17 12:22 Hx Last Menstrual Period: "I don't get it on Depo." - Allergies/Home Medications Allergies/Adverse Reactions: Allergies Allergy/AdvReac Type Severity Reaction Status Date / Time Cephalosporins Allergy Severe respiratory Verified 06/18/17 12:36 Sulfamethoxazole Allergy Severe respiratory Verified 06/18/17 12:36 w/Trimethoprim [From Bactrim] Iodinated Diagnostic Agents Allergy Hives Verified 06/18/17 12:36 Sumatriptan [From Imitrex] Allergy Pain Verified 06/18/17 12:36 Tramadol [From Ultram] Allergy Anaphylatic Verified 06/18/17 12:36 Shock Metoclopramide [From Reglan] AdvReac Agitation Verified 06/18/17 12:36 Home Medications: Home Medications Amitriptyline TAB* [Elavil TAB*] 50 mg PO BEDTIME 06/18/17 [History Confirmed ] PMH/Surg Hx/FS Hx/Imm Hx Other History Of: Negative For: HIV, Hepatitis B, Hepatitis C, Anticoagulant Therapy - Surgical History Surgical History: Yes Surgery Procedure, Year, and Place: TONSILS; APPENDIX; CHIARI MALFORMATION DECOMPRESSION C1 - C2 LAMINECTOMY -JUNE 22 2014 DONE AT [facility]. CHIARI MALFORMATION DECOMPRESSION REPEAT 06/28/15, OP SITE OK FOR MRI SCAN PER DR JASSO BASED ON CT 10/26/16 - Family History Known Family History: Positive: None, Cardiac Disease - father-chf, Respiratory Disease - MOTHER COPD Negative: Hypertension Family History: Father: CHF - Social History Alcohol Use: Rare Substance Use Type: None Smoking Status (MU): Heavy Every Day Tobacco Smoker Type: Cigarettes Amount Used/How Often: 1 PPD Length of Time of Smoking/Using Tobacco: Since Age 19 Have You Smoked in the Last Year: Yes When Did the Patient Quit Smoking/Using Tobacco: 2 years Household Exposure Type: Cigarettes - Immunization History Most Recent Influenza Vaccination: July 2016 Most Recent Tetanus Shot: 11/23/2010 Most Recent Pneumonia Vaccination: 11/23/2010 Review of Systems Constitutional: Negative Skin: Negative Eyes: Negative ENT: Negative Respiratory: Negative Cardiovascular: Negative Gastrointestinal: Negative Genitourinary: Negative Motor: Negative Neurovascular: Negative Musculoskeletal: Negative Neurological: Headache Psychological: Negative All Other Systems Reviewed And Are Negative: Yes Physical Exam Triage Information Reviewed: Yes Eye Exam: Normal ENT Exam: Normal Dental Exam: Normal Neck exam: Normal Neck: Positive: 1 Respiratory Exam: Normal Cardiovascular Exam: Normal Abdominal Exam: Normal Musculoskeletal Exam: Normal Neurological Exam: Normal Psychological Exam: Normal Skin Exam: Normal Headache Course/Dx - Differential Dx/Diagnosis Provider Diagnoses: migraine headache Discharge - Discharge Plan Condition: Stable Disposition: HOME Prescriptions: Ibuprofen [Addaprin] 800 mg PO Q8H PRN #30 tab PRN Reason: Headache Patient Education Materials: Migraine Headache (ED) Referrals: No Primary Care Phys,NOPCP [Primary Care Provider] -
[2017-06-18 12:44] VITALS: BP 133/72
== END 2017-06-18 13:00 | disposition home or self-care (01) ==
LOC: UCCORT 12:20
DX: G43.909 Migraine, unspecified, not intractable, without status migrainosus (principal); F17.210 Nicotine dependence, cigarettes, uncomplicated
CPT/HCPCS: 99212; G0463

== ENCOUNTER 2017-06-19 18:29 | Emergency (ER) | payer MEDICAID ==
[2017-06-19] MEDS ORDERED: HYDROmorphone* 1 MG/ML 1 ML SYR IV SLOW PU ONE (20:02)
[2017-06-19] MEDS ORDERED: NS 0.9% 1000 ML* 1,000 ML IV ONE (20:02)
[2017-06-19] MEDS ORDERED: Ondansetron INJ* 2 MG/ML VIAL IV ONE (20:02)
[2017-06-19] MEDS ORDERED: Butalb/Acetamin/Caff TAB* 1 TAB PO ONE ×3 (20:57→21:37)
[2017-06-19] MEDS ORDERED: Albuterol HFA INHALER* 8 gm MDI INH ONE (20:58)
[2017-06-19 21:55] VITALS: BP 134/99
--- NOTE | 2017-06-20 03:38 | ED ---
Erin Condon Rebecca, scribed for Xavi Singer MD on 06/19/17 at 1957 . Headache - HPI Summary HPI Summary: Pt is a 36 y/o F who presents to ED c/o TURNER. TURNER began yesterday and has been constant since onset. Pain is currently severe, ranked 9/10 and characterized as a typical migraine. Sx aggravated and alleviated by nothing, unchanged by Excedrin. Additionally c/o N/V, photophobia. Has been unable to tolerate PO intake since yesterday. Was seen yesterday at [facility] where she was given Lodine which caused severe nausea. She was evaluated on 06/12 at [facility] where she was given Dilaudid, Zofran and fluids which improved sx. 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 Rx for Fioricet. - History Of Current Complaint Chief Complaint: EDHeadache Stated Complaint: MIGRAINE Time Seen by Provider: 06/19/17 19:51 Hx Obtained From: Patient Hx Last Menstrual Period: "I don't get it on Depo." Onset/Duration: Started days ago - Yesterday, Still Present Currently Pain Is: Current Pain Scale(0-10)= - 9/10, Severe Timing: Constant Character: Migraine Aggravating Factor: Nothing Allevating Factors: Nothing Associated Signs And Symptoms: Nausea, Vomiting, Other (Noted In Comments) - Photophobia - Allergies/Home Medications Allergies/Adverse Reactions: Allergies Allergy/AdvReac Type Severity Reaction Status Date / Time Cephalosporins Allergy Severe respiratory Verified 06/19/17 19:48 Sulfamethoxazole Allergy Severe respiratory Verified 06/19/17 19:48 w/Trimethoprim [From Bactrim] Iodinated Diagnostic Agents Allergy Hives Verified 06/19/17 19:48 Sumatriptan [From Imitrex] Allergy Pain Verified 06/19/17 19:48 Tramadol [From Ultram] Allergy Anaphylatic Verified 06/19/17 19:48 Shock Metoclopramide [From Reglan] AdvReac Agitation Verified 06/19/17 19:48 PMH/Surg Hx/FS Hx/Imm Hx Endocrine/Hematology History: Denies: Hx Anticoagulant Therapy, Hx Diabetes, Hx Thyroid Disease Cardiovascular History: Denies: Hx Congestive Heart Failure, Hx Deep Vein Thrombosis, Hx Hypertension , Hx Myocardial Infarction, Hx Pacemaker/ICD Respiratory History: Reports: Hx Asthma, Hx Bronchopulmonary Dysplasia, Hx Seasonal Allergies Denies: Hx Chronic Obstructive Pulmonary Disease (COPD), Hx Lung Cancer, Hx Pneumonia, Hx Pulmonary Embolism GI History: Reports: Other GI Disorders - low abd pain x4 days, hx left ovary cyst, appendectomy 99 Denies: Hx Gall Bladder Disease, Hx Gastrointestinal Bleed, Hx Ulcer, Hx Urosepsis History: Reports: Hx Kidney Stones - DX 9MM RIGHT STONE X2 WKS AGO Denies: Hx Renal Disease Musculoskeletal History: Reports: Hx Back Problems - L3-L4; L4-L5; L5-S1 Herniated Disc Sensory History: Reports: Hx Contacts or Glasses Denies: Hx Hearing Aid Opthamlomology History: Reports: Hx Contacts or Glasses Neurological History: Reports: Hx Headaches, Hx Migraine, Other Neuro Impairments/Disorders - chiari malformation Denies: Hx Dementia, Hx Seizures, Hx Transient Ischemic Attacks (TIA) Psychiatric History: Reports: Hx Anxiety Denies: Hx Depression, Hx Panic Disorder, Hx Schizophrenia, Hx Bipolar Disorder, Hx Substance Abuse - Surgical History Surgery Procedure, Year, and Place: TONSILS; APPENDIX; CHIARI MALFORMATION DECOMPRESSION C1 - C2 LAMINECTOMY -JUNE 22 2014 DONE AT [facility]. CHIARI MALFORMATION DECOMPRESSION REPEAT 06/28/15, OP SITE OK FOR MRI SCAN PER DR JASSO BASED ON CT 10/26/16 Hx Anesthesia Reactions: No - Immunization History Date of Tetanus Vaccine: n Date of Influenza Vaccine: n Infectious Disease History: No Infectious Disease History: Denies: Hx Clostridium Difficile, Hx Hepatitis, Hx Human Immunodeficiency Virus (HIV), Hx of Known/Suspected MRSA, Hx Shingles, Hx Tuberculosis, Hx Known/ Suspected VRE, Hx Known/Suspected VRSA, History Other Infectious Disease, Traveled Outside the [place] in Last 30 Days - Family History Known Family History: Positive: Cardiac Disease - father-chf, Respiratory Disease - MOTHER COPD Negative: Hypertension - Social History Alcohol Use: Rare Substance Use Type: Reports: None Hx Tobacco Use: Yes Smoking Status (MU): Heavy Every Day Tobacco Smoker Type: Cigarettes Amount Used/How Often: 1 PPD Length of Time of Smoking/Using Tobacco: Since Age 19 Have You Smoked in the Last Year: Yes Review of Systems Positive: Photophobia Positive: Vomiting, Nausea Positive: Headache All Other Systems Reviewed And Are Negative: Yes Physical Exam - Summary Physical Exam Summary: The patient is well-nourished in no acute distress and in no acute pain. The skin is warm and dry and skin color reflects adequate perfusion. HEENT: The head is normocephalic and atraumatic. The pupils are equal and reactive. Shows slight photophobia. The conjunctivae are clear and without drainage. Nares are patent and without drainage. Mouth reveals moist mucous membranes and the throat is without erythema and exudate. The external ears are intact. The ear canals are patent and without drainage. The tympanic membranes are intact. Neck is supple with full range of motion and non-tender. Respiratory: Chest is non-tender. Breath sounds are symmetrical and equal. To auscultation, the lunds have an occasional expiratory wheeze. Cardiovascular: Hear is regular rate and rhythm. There is no murmur or rub auscultated. There is no peripheral edema and pulses are symmetrical and equal. Abdomen: The abdomen is soft and non-tender. There are normal bowel sounds heard in all four quadrants and there is no organomegaly palpated. Musculoskeletal: There is no back pain noted. Extremities are non-tender with full range of motion. There is good capillary refill. There is no calf tenderness elicited. Slight swelling of the L ankle. Neurological: Patient is alert and oriented to person, place and time. The patient has symmetrical motor strength in all four extremities. Cranial nerves are grossly intact. Deep tendon reflexes are symmetrical and equal in all four extremities. There is no facial droop. Psychiatric: The patient it teary-eyed does not exhibit any anxiety or depression. Triage Information Reviewed: Yes Vital Signs On Initial Exam: Initial Vitals Temp Pulse Resp BP Pulse Ox 99.8 F 88 18 132/75 100 06/19/17 18:32 06/19/17 18:32 06/19/17 18:32 06/19/17 18:32 06/19/17 18:32 Vital Signs Reviewed: Yes - Lawrence Coma Scale Coma Scale Total: 15 Diagnostics - Vital Signs Vital Signs Temp Pulse Resp BP Pulse Ox 06/19/17 19:47 99.9 F 72 16 132/83 100 06/19/17 18:32 99.8 F 88 18 132/75 100 - Laboratory Lab Statement: Any lab studies that have been ordered have been reviewed, and results considered in the medical decision making process. Re-Evaluation - Re-Evaluation First Eval Re-Evaluation Time: 20:55 Change: Improved Comment: Pain has decreased from a 9/10 to 5/10. Reports she is concerned about it returning and requests an Rx for Furicet since she recently ran out of her medication at home. Additionally requests an inhaler for her asthma. Second Eval Re-Evaluation Time: 21:38 Change: Unchanged Comment: Pt is requesting more Furicet. Headache Course/Dx - Course Assessment/Plan: Pt is a 36 y/o F who presents to ED c/o constant, typical migraine TURNER since yesterday that is currently severe, ranked 9/10. Sx unchanged by Excedrin. Additionally c/o N/V, photophobia. Has been unable to tolerate PO intake since yesterday. Was seen yesterday at [facility] where she was given Lodine which caused severe nausea. She was evaluated on 06/12 at [facility] where she was given Dilaudid, Zofran and fluids which improved sx. 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 Rx for Fioricet. In the ED course she was given Dilaudid, Zofran and fluids which improved sx. She will be D/C to home with Dx of migraine, cephalgia and asthma and sent home with an albuterol inhaler and an Rx for Furicet. She understands and agrees. - Diagnoses Provider Diagnoses: Migraine, Cephalgia, Asthma Discharge - Discharge Plan Condition: Stable Disposition: HOME Prescriptions: Butalb/Acetamin/Caff TAB* [Fioricet TAB*] 1 tab PO Q6H PRN #20 tab MDD 4 PRN Reason: headache Patient Education Materials: Migraine Headache (ED), Asthma (ED) Referrals: [facility] REFERRAL [Outside] - 3 Days The documentation as recorded by the Erin orourke Rebecca accurately reflects the service I personally performed and the decisions made by me, Xavi Singer MD.
== END 2017-06-19 21:58 | disposition home or self-care (01) ==
LOC: ED 18:29
DX: G43.909 Migraine, unspecified, not intractable, without status migrainosus (principal); J45.909 Unspecified asthma, uncomplicated; F17.210 Nicotine dependence, cigarettes, uncomplicated
CPT/HCPCS: 96360; 96374; 96375; 99283; A9270-GY; J1170; J2405

== ENCOUNTER 2017-07-03 12:08 | Emergency (ER) | payer MEDICAID, OTHER ==
[2017-07-03 12:22] VITALS: BP 115/93
--- NOTE | 2017-07-03 12:51 | UC ---
Headache HPI - HPI Summary HPI Summary: headache x 1 day , sever pain , radiates to her neck + nausea , no vomiting , + photophobia - History Of Current Complaint Chief Complaint: UCHeadache Stated Complaint: MIGRAINE Time Seen by Provider: 07/03/17 12:14 Hx Obtained From: Patient Hx Last Menstrual Period: 11/2016 Onset/Duration: Gradual Onset, Lasting Days - 1, Still Present Onset Of Symptoms: Gradual Initially Headache Was: Severe Currently Pain Is: Severe Timing: Constant Character: Throbbing, Migraine Location of Headache: Diffuse Aggravating Factor: Nothing Allevating Factors: Nothing Associated Signs And Symptoms: Positive: Nausea. Negative: Dizziness, Seizure, Vomiting, Sinus Pressure, Fever, Neck Pain, Neck Stiffness, Decreased LOC, Visual Changes, Other (Noted In Comments) - Allergies/Home Medications Allergies/Adverse Reactions: Allergies Allergy/AdvReac Type Severity Reaction Status Date / Time Cephalosporins Allergy Severe respiratory Verified 07/03/17 12:22 Sulfamethoxazole Allergy Severe respiratory Verified 07/03/17 12:22 w/Trimethoprim [From Bactrim] Iodinated Diagnostic Agents Allergy Hives Verified 07/03/17 12:22 Sumatriptan [From Imitrex] Allergy Pain Verified 07/03/17 12:22 Tramadol [From Ultram] Allergy Anaphylatic Verified 07/03/17 12:22 Shock Metoclopramide [From Reglan] AdvReac Agitation Verified 07/03/17 12:22 PMH/Surg Hx/FS Hx/Imm Hx Neurological History: Migraine Other History Of: Negative For: HIV, Hepatitis B, Hepatitis C, Anticoagulant Therapy - Surgical History Surgical History: Yes Surgery Procedure, Year, and Place: TONSILS; APPENDIX; CHIARI MALFORMATION DECOMPRESSION C1 - C2 LAMINECTOMY -JUNE 22 2014 DONE AT [facility]. CHIARI MALFORMATION DECOMPRESSION REPEAT 06/28/15, OP SITE OK FOR MRI SCAN PER DR JASSO BASED ON CT 10/26/16 - Family History Known Family History: Positive: None, Cardiac Disease - father-chf, Respiratory Disease - MOTHER COPD Negative: Hypertension Family History: Father: CHF - Social History Alcohol Use: Rare Substance Use Type: None Smoking Status (MU): Heavy Every Day Tobacco Smoker Type: Cigarettes Amount Used/How Often: 1 PPD Length of Time of Smoking/Using Tobacco: Since Age 19 Have You Smoked in the Last Year: Yes When Did the Patient Quit Smoking/Using Tobacco: 2 years Household Exposure Type: Cigarettes - Immunization History Most Recent Influenza Vaccination: July 2016 Most Recent Tetanus Shot: 11/23/2010 Most Recent Pneumonia Vaccination: 11/23/2010 Review of Systems Constitutional: Negative Skin: Negative Eyes: Negative ENT: Negative Respiratory: Negative Neurological: Headache All Other Systems Reviewed And Are Negative: Yes Physical Exam Triage Information Reviewed: Yes Appearance: Well-Appearing, No Pain Distress, Well-Nourished Vital Signs: Initial Vital Signs Temp 99.7 F 07/03/17 12:15 Pulse 103 07/03/17 12:15 Resp 18 07/03/17 12:15 BP 115/93 07/03/17 12:15 Vital Signs Reviewed: Yes Eyes: Positive: Conjunctiva Clear ENT: Positive: Normal ENT inspection, Hearing grossly normal, Pharynx normal Neck: Positive: Supple, Nontender, No Lymphadenopathy Respiratory: Positive: Chest non-tender, Lungs clear, Normal breath sounds Cardiovascular: Positive: RRR, No Murmur, Pulses Normal Musculoskeletal Exam: Normal Musculoskeletal: Positive: Strength Intact, ROM Intact, No Edema Neurological: Positive: Alert UC Physical Exam Vital Signs On Initial Exam: Initial Vitals Temp Pulse Resp BP 99.7 F 103 18 115/93 07/03/17 12:15 07/03/17 12:15 07/03/17 12:15 07/03/17 12:15 - Neurological Exam Neurological: Normal, Sensory/Motor Intact, Alert, Oriented to Person Place, Time, CN Intact II-III, Normal Gait, Speech Normal Headache Course/Dx - Differential Dx/Diagnosis Provider Diagnoses: headache Discharge - Discharge Plan Condition: Stable Disposition: HOME Prescriptions: Butalb/Acetamin/Caff TAB* [Fioricet TAB*] 1 tab PO Q6H PRN #20 tab MDD 4 PRN Reason: Pain Patient Education Materials: Migraine Headache (ED) Referrals: Anu Lea MD [Primary Care Provider] - If Needed
== END 2017-07-03 12:55 | disposition home or self-care (01) ==
LOC: UCCORT 12:08
DX: R51 Headache (principal); R11.0 Nausea; Z88.1 Allergy status to other antibiotic agents; Z88.2 Allergy status to sulfonamides; F17.210 Nicotine dependence, cigarettes, uncomplicated
CPT/HCPCS: 99212; G0463

== ENCOUNTER 2017-07-10 18:00 | Emergency (ER) | payer OTHER ==
[2017-07-10] MEDS ORDERED: NS 0.9% 1000 ML* 1,000 ML IV ONE (19:19)
[2017-07-10] MEDS ORDERED: Ketorolac INJ* 30 MG/ML 1 ML VIAL IV PUSH ONE (19:19)
[2017-07-10] MEDS ORDERED: Ondansetron INJ* 2 MG/ML VIAL IV ONE (19:19)
[2017-07-10] MEDS ORDERED: diPHENhydraMINE IV* 50 MG/ML 1 ml VIAL (BENADRYL) IV ONE (19:19)
--- NOTE | 2017-07-10 19:31 | ED ---
Headache - HPI Summary HPI Summary: Pt here w/ migraine which started yesterday and has not stopped. Usually fiorecet helps however she is out if this. Offered to give her a dose today and she declines. States this is the worse migraine she's ever had (NOTE: 2 visits ago, she made the same claim). Has photosensitivity, nausea despite trying a 4mg zofran earlier today. Has tingling in her B/L fingertips which is baseline for her - no change. Also admits to poor balance issues as a result of her basilar migraines (pain is in back of her head). Follows with neurologist in [place], Dr. Busch. Current tx is fioricet for migraine per pt. Has been seen in one of our urgent care centers or here at ED .... times in the past 2 months with migraines - given fioricet many of these times with refills however was eventually told she could not have any more fioricet. Her ISTOP indicates routine rx for lyrica 150mg and 200mg, alprazolam 0.25mg and oxycodone hcl 5mg until 06/01/2017 (no new rx's for 06/2017 in system). She has also received cough syrups with varying opioids from different providers over the past 1 year. 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 She is unsure of what is causing her headaches now - keeping a diary w/o a pattern forming. Very frustrated. When suggested we try a migraine cocktail, she reports these don't work for her. I explained everyone's cocktails are different and which of these medications don't work for her, what would she prefer? She mentioned reglan does not work. Told her I give NS, benadryl, toradol and zofran - she states toradol doesn't work for her. Asked if she's had muscle relaxers before as her neck muscles are taught - she states yes and they don't work. When asked what she would like, all she replies is "for the pain to go away". Expressed I would not be administering opioids today as she has a letter in her file from 2011 stating she had come in many times for narcotics. However will try as many other medications as possibly. - History Of Current Complaint Chief Complaint: EDHeadache Stated Complaint: MIGRAINE Time Seen by Provider: 07/10/17 18:42 Hx Obtained From: Patient Hx Last Menstrual Period: 11/2016 - Allergies/Home Medications Allergies/Adverse Reactions: Allergies Allergy/AdvReac Type Severity Reaction Status Date / Time Cephalosporins Allergy Severe respiratory Verified 07/03/17 12:22 Sulfamethoxazole Allergy Severe respiratory Verified 07/03/17 12:22 w/Trimethoprim [From Bactrim] Iodinated Diagnostic Agents Allergy Hives Verified 07/03/17 12:22 Sumatriptan [From Imitrex] Allergy Pain Verified 07/03/17 12:22 Tramadol [From Ultram] Allergy Anaphylatic Verified 07/03/17 12:22 Shock Metoclopramide [From Reglan] AdvReac Agitation Verified 07/03/17 12:22 PMH/Surg Hx/FS Hx/Imm Hx Previously Healthy: Yes Endocrine/Hematology History: Denies: Hx Anticoagulant Therapy, Hx Diabetes, Hx Thyroid Disease Cardiovascular History: Denies: Hx Congestive Heart Failure, Hx Deep Vein Thrombosis, Hx Hypertension , Hx Myocardial Infarction, Hx Pacemaker/ICD Respiratory History: Reports: Hx Asthma, Hx Bronchopulmonary Dysplasia, Hx Seasonal Allergies Denies: Hx Chronic Obstructive Pulmonary Disease (COPD), Hx Lung Cancer, Hx Pneumonia, Hx Pulmonary Embolism GI History: Reports: Other GI Disorders - low abd pain x4 days, hx left ovary cyst, appendectomy 99 Denies: Hx Gall Bladder Disease, Hx Gastrointestinal Bleed, Hx Ulcer, Hx Urosepsis History: Reports: Hx Kidney Stones - DX 9MM RIGHT STONE X2 WKS AGO Denies: Hx Renal Disease Musculoskeletal History: Reports: Hx Back Problems - L3-L4; L4-L5; L5-S1 Herniated Disc Sensory History: Reports: Hx Contacts or Glasses Denies: Hx Hearing Aid Opthamlomology History: Reports: Hx Contacts or Glasses Neurological History: Reports: Hx Headaches, Hx Migraine, Other Neuro Impairments/Disorders - chiari malformation Denies: Hx Dementia, Hx Seizures, Hx Transient Ischemic Attacks (TIA) Psychiatric History: Reports: Hx Anxiety Denies: Hx Depression, Hx Panic Disorder, Hx Schizophrenia, Hx Bipolar Disorder, Hx Substance Abuse - Surgical History Surgery Procedure, Year, and Place: TONSILS; APPENDIX; CHIARI MALFORMATION DECOMPRESSION C1 - C2 LAMINECTOMY -JUNE 22 2014 DONE AT [facility]. CHIARI MALFORMATION DECOMPRESSION REPEAT 06/28/15, OP SITE OK FOR MRI SCAN PER DR JASSO BASED ON CT 10/26/16 Hx Anesthesia Reactions: No - Immunization History Date of Tetanus Vaccine: n Date of Influenza Vaccine: n Infectious Disease History: Denies: Hx Clostridium Difficile, Hx Hepatitis, Hx Human Immunodeficiency Virus (HIV), Hx of Known/Suspected MRSA, Hx Shingles, Hx Tuberculosis, Hx Known/ Suspected VRE, Hx Known/Suspected VRSA, History Other Infectious Disease, Traveled Outside the [place] in Last 30 Days - Family History Known Family History: Positive: Cardiac Disease - father-chf, Respiratory Disease - MOTHER COPD Negative: Hypertension Family History: daughter - TURNER's - Social History Occupation: Unemployed Lives: With Family Alcohol Use: Rare Hx Substance Use: No Substance Use Type: Reports: None Hx Tobacco Use: Yes Smoking Status (MU): Current Every Day Smoker Type: Cigarettes Amount Used/How Often: 1 PPD Length of Time of Smoking/Using Tobacco: Since Age 19 Have You Smoked in the Last Year: Yes Review of Systems Constitutional: Negative Positive: Photophobia. Negative: Blurred Vision, Diplopia ENT: Negative Negative: Dental Pain, Sore Throat, Ear Ache Cardiovascular: Negative Negative: Chest Pain Respiratory: Negative Negative: Shortness Of Breath Positive: Nausea - see HPI Negative: burning, dysuria, discharge Musculoskeletal: Negative Skin: Negative Positive: Headache - see HPI, Paresthesia - as in HPI Positive: Anxious All Other Systems Reviewed And Are Negative: Yes Physical Exam Triage Information Reviewed: Yes Vital Signs On Initial Exam: Initial Vitals Temp Pulse Resp BP Pulse Ox 97.9 F 113 17 122/71 98 07/10/17 18:27 07/10/17 18:27 07/10/17 18:27 07/10/17 18:27 07/10/17 18:27 Vital Signs Reviewed: Yes Appearance: Positive: Well-Appearing, Well-Nourished, Pain Distress - tearful, anxious Skin: Positive: Warm, Dry Head/Face: Positive: Normal Head/Face Inspection Eyes: Positive: Normal, EOMI, ROCIO - photosensitive, Conjunctiva Clear ENT: Positive: Normal ENT inspection, Hearing grossly normal, Pharynx normal, TMs normal. Negative: Nasal congestion, Nasal drainage, Tonsillar swelling, Tonsillar exudate Dental: Negative: Abscess @ Neck: Positive: Nontender, No Lymphadenopathy, Other: - hypertonic trapezius mm B/L - reports they're always this way and NTTP Respiratory/Lung Sounds: Positive: Clear to Auscultation, Breath Sounds Present Cardiovascular: Positive: Pulses are Symmetrical in both Upper and Lower Extremities, Tachycardia, S1, S2. Negative: Murmur, Rub Abdomen Description: Positive: Soft Musculoskeletal: Positive: Normal, Strength/ROM Intact Neurological: Positive: Normal, Sensory/Motor Intact, Alert, Oriented to Person Place, Time, CN Intact II-III Psychiatric: Positive: Anxious - agitated, tearful, labile mood Diagnostics - Vital Signs Vital Signs Temp Pulse Resp BP Pulse Ox 07/10/17 18:27 97.9 F 113 17 122/71 98 - Laboratory Lab Statement: Any lab studies that have been ordered have been reviewed, and results considered in the medical decision making process. Headache Course/Dx - Course Course Of Treatment: Pt presents w/ migraine TURNER but worse than usual. States she is out of fioricet so came in for pain relief. Offered to give her this initially and she declined. Then offered her migraine cocktail which she declined stating "reglan doesn't work for me". Explained everyone's migraine cocktail is different - mine include NS, toradol, benadryl and zofran but I'd be happy to add solumedrol which she states works well for her. She told me toradol doesn't work for her and what was I going to do for her pain. Explained th combination of these medications is shown to break spasm and pain cycle of migraines. Explained we can start with this treatment and see how she does. When I left the room and nurse returned, she told the nurse she didn't want the cocktail and wanted to see a doctor or leave. Other physicians on staff deneen backed my plan and did not feel the need to see her. Nurse asked if I could speak with her. In doing so, she appears more comfortable in bed - no longer crying, but in fact smiling, pointing out how I'm not helping her. She complained that this plan would not work and she would probably have a stroke, felt I did not include her in the treatment plan although as mentioned above she was asked many times what works for her and what does not. She was then asked again, what has worked that she would like - she said Dr. Key and Dr. Singer have given meds that have helped. Upon reviewing her tx those days, she received IV dilaudid. Explained I would not be prescribing narcotics and she requested to leave w/o any treatments. Stated she would call ambulance to take her somewhere else because she'll probably have a stroke. Explained she is welcome to stay and go through a process of treatments to see how she does and imaging will be ordered if necessary. Also expressed I would be happy to contact her neurologist who she states she called 2 x today for aid w/o success. She said they are not there now. I told her I could get ahold of the on -call service to best help her as her neurologist is very familiar with her condition and what would be best to use for treatment to prevent stroke, etc. She opted to leave and states "I'm not signing any paperwork". One last time, clearly stated I would be happy to treat her with our original plan and again named all drugs so she was clear about them. Also told her if she decided to come back later tonight, I'd still be happy to implement our plan. See HPI for further hx details. - Diagnoses Provider Diagnoses: Malingering, Headache Discharge - Discharge Plan Condition: Stable Disposition: ADMITTED TO [facility] Patient Education Materials: Migraine Headache (ED) Referrals: Clint Chopra MD [Primary Care Provider] - Narayan HOPKINS,Scotty Shepard [Medical Doctor] - Additional Instructions: You appear to have had multiple uncontrolled migraines over the past 2 months. It is important that you contact your neurologist for better baseline control and to discuss a migraine rescue plan when they are worse than usual. Please call Dr. Hough tomorrow to schedule follow-up. You may return here at any time for migraine treatment however please be advised this will not include narcotic therapy. *If you develop change in vision, weakness, syncope, intractable vomiting, intractable headache, return to ED
[2017-07-10 19:36] VITALS: BP 127/56
[2017-07-10] MEDS ORDERED: methylPREDNISolone 125 MG* 2 ML VIAL IV ONE (20:07)
== END 2017-07-10 20:17 | disposition short-term general hospital (02) ==
LOC: ED 18:00
DX: Z76.5 Malingerer [conscious simulation] (principal); R51 Headache; R11.0 Nausea; F17.210 Nicotine dependence, cigarettes, uncomplicated; H53.149 Visual discomfort, unspecified
CPT/HCPCS: 96374; 96375; 99283; J1200; J1885; J2405

== ENCOUNTER 2017-07-23 18:18 | Emergency (ER) | payer OTHER ==
[2017-07-23 18:29] VITALS: BP 129/73
--- NOTE | 2017-07-23 18:56 | UC ---
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 STATES THAT FIORICET IS ONLY MEDICATION THAT WORKS FOR HER AND IS OUT OF PRESCRIPTION. HAS APPOINTMENT ON SUNDAY WITH NEUROLOGIST. WAS PRESCRIBED FIORICET BY URGENT CARE PROVDER [facility]20 ON 07/03/17. MULTIPLE VISITS TO ED AND URGENT CARE FOR SAME. OFFERED MULTPLE TREATMENTS, PATIENT REFUSED. PATEINT HAS NOT CALLED PRIMARY CARE OR NEUROLOGIST TODAY FOR MIGRAINE MANAGEMENT. - History Of Current Complaint Chief Complaint: UCHeadache Stated Complaint: MIGRAINE Time Seen by Provider: 07/23/17 18:23 Hx Obtained From: Patient Hx Last Menstrual Period: unknown, on depo Onset/Duration: Sudden Onset, Lasting Hours, Still Present Onset Of Symptoms: Gradual Pain Intensity: 6 Pain Scale Used: 0-10 Numeric Character: Typical Headache, Migraine Aggravating Factor: Bright Lights - Risk Factors SAH Risk Factors: Negative Meningitis Risk Factors: Negative SDH Risk Factors: Negative Temporal Arteritis Risk Factors: Negative - Allergies/Home Medications Allergies/Adverse Reactions: Allergies Allergy/AdvReac Type Severity Reaction Status Date / Time Cephalosporins Allergy Severe respiratory Verified 07/23/17 18:29 Sulfamethoxazole Allergy Severe respiratory Verified 07/23/17 18:29 w/Trimethoprim [From Bactrim] Iodinated Diagnostic Agents Allergy Hives Verified 07/23/17 18:29 Sumatriptan [From Imitrex] Allergy Pain Verified 07/23/17 18:29 Tramadol [From Ultram] Allergy Anaphylatic Verified 07/23/17 18:29 Shock Metoclopramide [From Reglan] AdvReac Agitation Verified 07/23/17 18:29 PMH/Surg Hx/FS Hx/Imm Hx Previously Healthy: Yes Other History Of: Negative For: HIV, Hepatitis B, Hepatitis C, Anticoagulant Therapy - Surgical History Surgical History: Yes Surgery Procedure, Year, and Place: TONSILS; APPENDIX; CHIARI MALFORMATION DECOMPRESSION C1 - C2 LAMINECTOMY -JUNE 22 2014 DONE AT [facility]. CHIARI MALFORMATION DECOMPRESSION REPEAT 06/28/15, OP SITE OK FOR MRI SCAN PER DR JASSO BASED ON CT 10/26/16 - Family History Known Family History: Positive: None, Cardiac Disease - father-chf, Respiratory Disease - MOTHER COPD Negative: Hypertension Family History: daughter - TURNER's - Social History Occupation: Disabled Lives: With Family Alcohol Use: Rare Substance Use Type: None Smoking Status (MU): Current Every Day Smoker Type: Cigarettes Amount Used/How Often: 1/2 PPD Length of Time of Smoking/Using Tobacco: Since Age 19 Have You Smoked in the Last Year: Yes When Did the Patient Quit Smoking/Using Tobacco: 2 years Household Exposure Type: Cigarettes Cessation Counseling: Patient Advised to Stop - Immunization History Most Recent Influenza Vaccination: July 2016 Most Recent Tetanus Shot: 11/23/2010 Most Recent Pneumonia Vaccination: 11/23/2010 Review of Systems Constitutional: Negative Skin: Negative Eyes: Photophobia ENT: Negative Respiratory: Negative Cardiovascular: Negative Gastrointestinal: Nausea Genitourinary: Negative Motor: Negative Neurovascular: Negative Musculoskeletal: Negative Neurological: Headache Psychological: Negative All Other Systems Reviewed And Are Negative: Yes Physical Exam Triage Information Reviewed: Yes Completion Of Physical Exam Limited Due To: Patient is uncooperative with exam Appearance: Well-Nourished, Ill-Appearing, Pain Distress - MILD Vital Signs: Initial Vital Signs Temp 99.2 F 07/23/17 18:23 Pulse 93 07/23/17 18:23 Resp 16 07/23/17 18:23 BP 129/73 07/23/17 18:23 Pulse Ox 100 07/23/17 18:23 Vital Signs Reviewed: Yes Eye Exam: Other - PHOTOPHOBIA Eyes: Positive: Other: - PATIENT REFUSED EYE EXAM STATING ' I DONT WANT THIS IF YOU ARE NOT GOING TO PRESCRIBE ANYTHING' ENT Exam: Normal Dental Exam: Normal Neck exam: Normal Neck: Positive: Supple, Nontender Respiratory Exam: Normal Respiratory: Positive: Chest non-tender, Lungs clear, Normal breath sounds, No respiratory distress Cardiovascular Exam: Normal Cardiovascular: Positive: RRR, No Murmur, Pulses Normal Musculoskeletal Exam: Other - PATIENT REFUSED MUSCULOSKELETAL EXAM STATING ' I DONT WANT THIS IF YOU ARE NOT GOING TO PRESCRIBE ANYTHING' (MEANING FIORICET) Musculoskeletal: Positive: Strength Intact, ROM Intact Neurological Exam: Other - PATIENT REFUSED NEURO EXAM STATING ' I DONT WANT THIS IF YOU ARE NOT GOING TO PRESCRIBE ANYTHING' Psychological: Positive: Other: - FRUSTRATED Skin Exam: Normal Headache Course/Dx - Course Course Of Treatment: PATIENT AGREED TO TRY MUSCLE RELAXER (FLEXERIL) POSSIBLE ALTERNATIVE TO FIORICET IN HOPES TO RESOLVE TENSION HEADACHE. PATIENT ALSO AGREED TO SEEK CARE AT EMERGENCY DEPARTMENT IF CONDITION WORSENS. - Differential Dx/Diagnosis Differential Diagnosis/HQI/PQRI: Migraine, Tension Headache, Other Provider Diagnoses: MIGRAINE Discharge - Discharge Plan Condition: Stable Disposition: HOME Prescriptions: Cyclobenzaprine TAB* [Flexeril 10 MG TAB*] 10 mg PO BID PRN #8 tab PRN Reason: Spasms Patient Education Materials: Migraine Headache (ED) Referrals: Sheyla Nick MD [Medical Doctor] - Narayan HOPKINS,Scotty Shepard [Medical Doctor] - Clint Chopra MD [Primary Care Provider] - Additional Instructions: please call your primary care physician and discuss management of your migraines. please be seen in emergency department if condition worsens.
== END 2017-07-23 18:47 | disposition home or self-care (01) ==
LOC: UCCORT 18:18
DX: G43.909 Migraine, unspecified, not intractable, without status migrainosus (principal)
CPT/HCPCS: 99212; G0463

== ENCOUNTER 2017-10-30 11:33 | Emergency (ER) | payer OTHER ==
[2017-10-30 11:45] VITALS: BP 135/96
[2017-10-30] MEDS ORDERED: Butalb/Acetamin/Caff TAB* 1 TAB PO ONE (12:23)
--- NOTE | 2017-10-30 18:26 | ED ---
Yuval Condon Angela, scribed for Samuel Crowe MD on 10/30/17 at 1224 . Headache - HPI Summary HPI Summary: This pt is a 36 y/o female presenting to [facility] c/o migraine headaches. Pt reports she would like a prescription refill for the medications she usually takes, Fioricet. She currently rates her pain 6/10 in severity. Pt states she recently went off Depo and currently has her period. Pt notes she does not have a PCP until 11/26/17. PMHx includes asthma, brain herniation - chiari decompression 05/2014 and 06/2015 with laminectomy, anxiety, appendectomy. - History Of Current Complaint Chief Complaint: EDPrescriptionNeeded Stated Complaint: HEADACHE Time Seen by Provider: 10/30/17 12:17 Hx Obtained From: Patient Hx Last Menstrual Period: unknown, on depo Onset/Duration: Started days ago, Still Present Currently Pain Is: Current Pain Scale(0-10)= - 6 Timing: Constant Character: Migraine Location of Headache: Diffuse - Allergies/Home Medications Allergies/Adverse Reactions: Allergies Allergy/AdvReac Type Severity Reaction Status Date / Time Cephalosporins Allergy Severe respiratory Verified 10/30/17 11:44 Sulfamethoxazole Allergy Severe respiratory Verified 10/30/17 11:44 w/Trimethoprim [From Bactrim] Iodinated Diagnostic Agents Allergy Hives Verified 10/30/17 11:44 Sumatriptan [From Imitrex] Allergy Pain Verified 10/30/17 11:44 Tramadol [From Ultram] Allergy Anaphylatic Verified 10/30/17 11:44 Shock Metoclopramide [From Reglan] AdvReac Agitation Verified 10/30/17 11:44 PMH/Surg Hx/FS Hx/Imm Hx Endocrine/Hematology History: Denies: Hx Anticoagulant Therapy, Hx Diabetes, Hx Thyroid Disease Cardiovascular History: Denies: Hx Congestive Heart Failure, Hx Deep Vein Thrombosis, Hx Hypertension , Hx Myocardial Infarction, Hx Pacemaker/ICD Respiratory History: Reports: Hx Asthma, Hx Bronchopulmonary Dysplasia, Hx Seasonal Allergies Denies: Hx Chronic Obstructive Pulmonary Disease (COPD), Hx Lung Cancer, Hx Pneumonia, Hx Pulmonary Embolism GI History: Reports: Other GI Disorders - low abd pain x4 days, hx left ovary cyst, appendectomy 99 Denies: Hx Gall Bladder Disease, Hx Gastrointestinal Bleed, Hx Ulcer, Hx Urosepsis History: Reports: Hx Kidney Stones - DX 9MM RIGHT STONE X2 WKS AGO Denies: Hx Renal Disease Musculoskeletal History: Reports: Hx Back Problems - L3-L4; L4-L5; L5-S1 Herniated Disc Sensory History: Reports: Hx Contacts or Glasses Denies: Hx Hearing Aid Opthamlomology History: Reports: Hx Contacts or Glasses Neurological History: Reports: Hx Headaches, Hx Migraine, Other Neuro Impairments/Disorders - chiari malformation Denies: Hx Dementia, Hx Seizures, Hx Transient Ischemic Attacks (TIA) Psychiatric History: Reports: Hx Anxiety Denies: Hx Depression, Hx Panic Disorder, Hx Schizophrenia, Hx Bipolar Disorder, Hx Substance Abuse - Surgical History Surgery Procedure, Year, and Place: TONSILS; APPENDIX; CHIARI MALFORMATION DECOMPRESSION C1 - C2 LAMINECTOMY -JUNE 22 2014 DONE AT [facility]. CHIARI MALFORMATION DECOMPRESSION REPEAT 06/28/15, OP SITE OK FOR MRI SCAN PER DR JASSO BASED ON CT 10/26/16 Hx Anesthesia Reactions: No - Immunization History Date of Tetanus Vaccine: n Date of Influenza Vaccine: 07/2017 Immunizations Up to Date: Yes Infectious Disease History: No Infectious Disease History: Denies: Hx Clostridium Difficile, Hx Hepatitis, Hx Human Immunodeficiency Virus (HIV), Hx of Known/Suspected MRSA, Hx Shingles, Hx Tuberculosis, Hx Known/ Suspected VRE, Hx Known/Suspected VRSA, History Other Infectious Disease, Traveled Outside the [place] in Last 30 Days - Family History Known Family History: Positive: None, Cardiac Disease - father-chf, Respiratory Disease - MOTHER COPD Negative: Hypertension Family History: daughter - TURNER's - Social History Alcohol Use: Rare Hx Substance Use: No Substance Use Type: Reports: Prescribed Hx Tobacco Use: Yes Smoking Status (MU): Current Every Day Smoker Type: Cigarettes Amount Used/How Often: 1/2 PPD Length of Time of Smoking/Using Tobacco: Since Age 19 Have You Smoked in the Last Year: Yes Review of Systems Negative: Fever, Chills ENT: Negative Cardiovascular: Negative Respiratory: Negative Gastrointestinal: Negative Positive: Headache All Other Systems Reviewed And Are Negative: Yes Physical Exam - Summary Physical Exam Summary: VITAL SIGNS: Reviewed. GENERAL: Patient is a well-developed and nourished female who is lying comfortable in the stretcher. Patient is not in any acute respiratory distress. HEAD AND FACE: No signs of trauma. No ecchymosis, hematomas or skull depressions. No sinus tenderness. EYES: PERRLA, EOMI x 2, No injected conjunctiva, no nystagmus. EARS: Hearing grossly intact. Ear canals and tympanic membranes are within normal limits. MOUTH: Oropharynx within normal limits. NECK: Supple, trachea is midline, no adenopathy, no JVD, no carotid bruit, no c- spine tenderness, neck with full ROM. CHEST: Symmetric, no tenderness at palpation LUNGS: Clear to auscultation bilaterally. No wheezing or crackles. CVS: Regular rate and rhythm, S1 and S2 present, no murmurs or gallops appreciated. ABDOMEN: Soft, non-tender. No signs of distention. No rebound no guarding, and no masses palpated. Bowel sounds are normal. EXTREMITIES: FROM in all major joints, no edema, no cyanosis or clubbing. NEURO: Alert and oriented x 3. No acute neurological deficits. Speech is normal and follows commands. SKIN: Dry and warm Triage Information Reviewed: Yes Vital Signs On Initial Exam: Initial Vitals Temp Pulse Resp BP Pulse Ox 99.1 F 109 20 135/96 100 10/30/17 11:44 10/30/17 11:44 10/30/17 11:44 10/30/17 11:44 10/30/17 11:44 Vital Signs Reviewed: Yes - [place] Coma Scale Coma Scale Total: 15 Diagnostics - Vital Signs Vital Signs Temp Pulse Resp BP Pulse Ox 10/30/17 11:44 99.1 F 109 20 135/96 100 - Laboratory Lab Statement: Any lab studies that have been ordered have been reviewed, and results considered in the medical decision making process. Headache Course/Dx - Course Assessment/Plan: This pt is a 36 y/o female presenting to [facility] c/o migraine headaches. Pt reports she would like a prescription refill for the medications she usually takes, Fioricet. She currently rates her pain 6/10 in severity. Pt states she recently went off Depo and currently has her period. Pt notes she does not have a PCP until 11/26/17. PMHx includes asthma, brain herniation - chiari decompression 05/2014 and 06/2015 with laminectomy, anxiety, appendectomy. The pt has history of migraine headaches. She presents to the ED because she ran out of her medications and is in transition from one PCP to another. Pt was given 1 dose of Fioricet in the ED and was given a prescription for Fioricet for the next 3 days until she can see her PCP. Pt is hemodynamically stable, alert and oriented x3 - Diagnoses Provider Diagnoses: refill for migraine medication Discharge - Discharge Plan Condition: Stable Disposition: HOME Prescriptions: Butalb/Acetamin/Caff TAB* [Fioricet TAB*] 1 tab PO Q6H PRN #15 tab MDD 4 PRN Reason: Pain Patient Education Materials: Butalbital/Acetaminophen/Caffeine (By mouth), Medicine Refill (ED) Referrals: No Primary Care Phys,NOPCP [Primary Care Provider] - [facility] PHYSICIAN REFERRAL [Outside] Additional Instructions: Please follow up with your primary care provider. If you don't have one, establish a primary by calling the [facility] Physician Referral number. RETURN TO THE ED FOR ANY WORSENING OR NEW SYMPTOMS. The documentation as recorded by the Yuval orourke Angela accurately reflects the service I personally performed and the decisions made by me, Samuel Crowe MD.
== END 2017-10-30 12:31 | disposition home or self-care (01) ==
LOC: ED 11:33
DX: G43.909 Migraine, unspecified, not intractable, without status migrainosus (principal); R51 Headache; Z76.0 Encounter for issue of repeat prescription
CPT/HCPCS: 99281

== ENCOUNTER 2017-12-06 13:07 | Emergency (ER) | payer OTHER ==
[2017-12-06 15:00] VITALS: BP 116/55
--- NOTE | 2017-12-06 15:05 | UC ---
Back Pain HPI - HPI Summary HPI Summary: 36 y/o female presents to the urgent care c/o lower back pain since 10/20/2017 when she fell and injured her back. Pt states her pain is worsening with the days. She has been seen by her PCP who did a CT scan and Dx with a herniated disc at L4-L5. She has an appt with Her Neurosurgeon DR Leger at [place] on . Her PCP advised to take Aleve/Tylenol to alleviate symptoms. Today, Pain 8/10, sharp with numbness and tingling over the LF lower leg. She has taken Flexeril and Steroids in the past. 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 She went to her PCP yesterday to see if she cant get something different for for her pain, and was told to continue w/Rx Naproxen. She states she needs something stronger. She is looking for a new PCP. Pt denies fever, cough, URI, saddle anesthesia, urinary and fecal incontinence, SOB, chest pain, abdominal pain, N/V/D - History of Current Complaint Chief Complaint: UCBackPain Stated Complaint: LOW BACK INJ Time Seen by Provider: 12/06/17 14:01 Hx Obtained From: Patient Hx Last Menstrual Period: pt on depo and states not getting a menses Onset/Duration: Gradual Onset, Lasting Weeks - since 10/20/2017, Still Present, Worse Since - las 2 weeks Timing: Constant Severity Initially: Severe Severity Currently: Severe Pain Intensity: 8 Pain Scale Used: 0-10 Numeric Back Pain: Is Discrete @ - lower back Character: Sharp Aggravating Factor(s): Movement, Lifting, Bending Alleviating Factor(s): Rest Associated Signs And Symptoms: Positive: Numbness, Tingling - Left lower extrmity, Pain with Weight Bearing. Negative: Swelling, Redness, Bruising, Fever, Weakness, Flank Pain, Bladder Incontinence, Bowel Incontinence, Weight Loss - Risk Factors AAA Risk Factors: Negative TAD Risk Factors: Negative Cauda Equina Risk Factors: Negative Epidural Abscess Risk Factors: Negative - Allergies/Home Medications Allergies/Adverse Reactions: Allergies Allergy/AdvReac Type Severity Reaction Status Date / Time Cephalosporins Allergy Severe respiratory Verified 10/30/17 11:44 Sulfamethoxazole Allergy Severe respiratory Verified 10/30/17 11:44 w/Trimethoprim [From Bactrim] Iodinated Diagnostic Agents Allergy Hives Verified 10/30/17 11:44 Tramadol [From Ultram] Allergy Anaphylatic Verified 10/30/17 11:44 Shock Metoclopramide [From Reglan] AdvReac Agitation Verified 10/30/17 11:44 Sumatriptan [From Imitrex] AdvReac Pain Verified 12/06/17 13:41 Home Medications: Home Medications Naproxen Sodium-Diphenhydramin [Aleve PM 220-25 mg] 2 tab PO PRN 12/06/17 [ History] PMH/Surg Hx/FS Hx/Imm Hx Previously Healthy: Yes Respiratory History: Asthma Neurological History: Migraine Other Neurological History: Chiari malformation Other History Of: Negative For: HIV, Hepatitis B, Hepatitis C, Anticoagulant Therapy - Surgical History Surgical History: Yes Surgery Procedure, Year, and Place: TONSILS; APPENDIX; CHIARI MALFORMATION DECOMPRESSION C1 - C2 LAMINECTOMY -JUNE 22 2014 DONE AT [facility]. CHIARI MALFORMATION DECOMPRESSION REPEAT 06/28/15, OP SITE OK FOR MRI SCAN PER DR JASSO BASED ON CT 10/26/16 - Family History Known Family History: Positive: Cardiac Disease - father-chf, Hypertension, Respiratory Disease - MOTHER COPD Family History: daughter - TURNER's - Social History Occupation: Unemployed Lives: With Family Alcohol Use: Rare Substance Use Type: Prescribed Smoking Status (MU): Current Every Day Smoker Type: Cigarettes Amount Used/How Often: 1/2 PPD Length of Time of Smoking/Using Tobacco: Since Age 19 Have You Smoked in the Last Year: Yes When Did the Patient Quit Smoking/Using Tobacco: 2 years Household Exposure Type: Cigarettes - Immunization History Most Recent Influenza Vaccination: July 2016 Most Recent Tetanus Shot: 11/23/2010 Most Recent Pneumonia Vaccination: 11/23/2010 Review of Systems Constitutional: Negative Skin: Negative Eyes: Negative ENT: Negative Respiratory: Negative Cardiovascular: Negative Gastrointestinal: Negative Genitourinary: Negative Motor: Negative Neurovascular: Negative, Other - numbness and tingling over the left lower extremity Musculoskeletal: Other: - lower back pain Neurological: Negative Psychological: Negative Is Patient Immunocompromised?: No All Other Systems Reviewed And Are Negative: Yes Physical Exam Triage Information Reviewed: Yes Vital Signs: Initial Vital Signs Temp 100.1 F 12/06/17 13:27 Pulse 94 12/06/17 13:27 Resp 14 12/06/17 13:27 BP 116/55 12/06/17 13:27 Pulse Ox 98 12/06/17 13:27 - Additional Comments Vital signs: reviewed General: Patient is a well developed female without any distress that is standing against the examining table w/o any apparent distress. Skin: [place], warm, dry HEAD AND FACE: No signs of trauma. EYES: PERRLA, EOMI x 2. EARS: Hearing grossly intact. MOUTH: Oropharynx within normal limits. NECK: Supple, trachea is midline, no adenopathy, no JVD. CHEST: Symmetric, no tenderness at palpation LUNGS: CTA bilaterally, no rales, rhonchi or wheezing CVS: RRR, no murmur, rub, or gallop ABDOMEN: soft and Nontender without masses, no guarding or rebound. Bowel sounds are active. No Hepato-splenomegaly. No signs of inguinal hernias. BACK: Patient walked into the urgent care room with symmetric ambulation, No signs of limping, antalgic, able to bear weight. No signs of trauma, POsitive mild paraspinal muscle tenderness at S1, With point tenderness at the same level , No CVAT, no flank ecchymosis . No sacroiliac notch tenderness, No saddle anesthesia. Decrease ROM:due to pain.Straight Leg Raise: negative. Patellar reflexes: brisk, symmetric Muscle strength lower extremities. Dorsiflexion/ plantar flexion of ankles. Heel/ toe walk Lower extremities: Femoral, popliteal, posterior tibial, and dorsalis pedis pulses with in normal, Rectal: Patient refused the exam. Neurological: WNL Psychological: WNL Skin: dry and warm Back Pain Course/Dx - Course Course Of Treatment: 36 y/o female presents to the urgent care c/o lower back pain since 10/20/2017 when she fell and injured her back. Pt states her pain is worsening with the days. She has been seen by her PCP who did a CT scan and Dx with a herniated disc at L4-L5. She has an appt with Her Neurosurgeon DR Leger at [place] on 12/20/2017. Her PCP advised to take Aleve/Tylenol to alleviate symptoms. Today, Pain 8/10, sharp with numbness and tingling over the LF lower leg. She has taken Flexeril and Steroids in the past. 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 She went to her PCP yesterday to see if she cant get something different for for her pain, and was told to continue w/Rx Naproxen. She states she needs something stronger. She is looking for a new PCP. Pt denies fever, cough, URI, saddle anesthesia, urinary and fecal incontinence, SOB, chest pain, abdominal pain, N/V/D. Hx obtained. Pt with left side lower back muscle spasm. Pt requests Pain medications. I Print out the I-Stop from the [employer]. Pt has been Rx mulptiple pain medications on 2016. Pt Rx Methocarbamol PO and f/u with her PCP for further management. PT states she is allergic to Tramadol, She has taken Steroids w/o any relief and she needs something stronger for her pain. I offered a Toradol IM Inj, she declined and stated she is afraid of needles. D/c instructions explained. Pt left the clinic Hemodynamically stable, ambulating w/o any limping or pain distress and upset. - Differential Dx/Diagnosis Differential Diagnosis/HQI/PQRI: Cauda Equina Syndrome, Compressive Cord Syndrome, Herniated Disc, Renal Colic, Strain, Sprain Provider Diagnoses: 1- Acute lower back pain. 2- Back spasm Discharge - Discharge Plan Condition: Stable Disposition: HOME Prescriptions: Methocarbamol TAB* [Robaxin 500 MG TAB*] 750 mg PO TID PRN #15 tab PRN Reason: Spasms - Back Patient Education Materials: Back Pain (ED) Referrals: No Primary Care Phys,NOPCP [Medical Doctor] - 3 Days Additional Instructions: 1- Please continue taking Naproxen PO as directed after meals for pain. 2- Take Methocarbacmol PO as directed for muscle spasm. Please do not drive while taking the medication. 3- Wear a back support. Avoid strenuous exercise of heavy lifting. 4- Please follow up with Neurosurgeon Dr Leger on 12/20/2017 for further management.
== END 2017-12-06 15:01 | disposition home or self-care (01) ==
LOC: UCCORT 13:07
DX: M54.5 Low back pain (principal); M62.830 Muscle spasm of back; J45.909 Unspecified asthma, uncomplicated; G43.909 Migraine, unspecified, not intractable, without status migrainosus; Z88.5 Allergy status to narcotic agent; Z88.2 Allergy status to sulfonamides; Z88.1 Allergy status to other antibiotic agents; Z91.041 Radiographic dye allergy status; F17.210 Nicotine dependence, cigarettes, uncomplicated
CPT/HCPCS: 99212; G0463

== ENCOUNTER 2017-12-26 09:41 | Emergency (ER) | payer OTHER ==
[2017-12-26 10:36] VITALS: BP 134/86
--- NOTE | 2017-12-26 11:12 | UC ---
Headache HPI - HPI Summary HPI Summary: Migraine for about 24 hours. She is out of fiorinol. Prednisone does help at times. She has a neurosurgeon she follows with at [facility] for her chiari malformation. She has no new symptoms today that are atypical for her. NO new neurologic defecits. - History Of Current Complaint Chief Complaint: UCHeadache Stated Complaint: MIGRAINE Time Seen by Provider: 12/26/17 10:23 Hx Obtained From: Patient Hx Last Menstrual Period: pt on depo and states not getting a menses ?: No Onset/Duration: Gradual Onset, Lasting Hours Initially Headache Was: Moderate Currently Pain Is: Moderate Pain Intensity: 8 Timing: Constant Character: Pressure, Typical Headache, Migraine Location of Headache: Diffuse Aggravating Factor(s): Position Change, Bright Lights Allevating Factor(s): Medication Associated Signs And Symptoms: Positive: Nausea. Negative: Dizziness, Seizure, Fever, Neck Pain, Neck Stiffness, Decreased LOC, Visual Changes Related History: Similar Episode/DX As: - prior migraine. - Allergies/Home Medications Allergies/Adverse Reactions: Allergies Allergy/AdvReac Type Severity Reaction Status Date / Time MS Cephalosporins Allergy Severe respiratory Verified 12/26/17 10:36 [Cephalosporins] MS Sulfamethoxazole Allergy Severe respiratory Verified 12/26/17 10:36 w/Trimethoprim [From Bactrim] MS Iodinated Diagnostic Allergy Hives Verified 12/26/17 10:36 Agents [Iodinated Diagnostic Agents] MS Tramadol [From Ultram] Allergy Anaphylatic Verified 12/26/17 10:36 Shock MS Metoclopramide AdvReac Agitation Verified 12/26/17 10:36 [From Reglan] MS Sumatriptan [From Imitrex] AdvReac Pain Verified 12/26/17 10:36 Home Medications: Home Medications Obmospc-Didexzzynzejv-Haeyyxwq [Excedrin Extra Strength] 1 tab PO 12/26/17 [ History] PMH/Surg Hx/FS Hx/Imm Hx Previously Healthy: No - chiarri malformation. Other History Of: Negative For: HIV, Hepatitis B, Hepatitis C, Anticoagulant Therapy - Surgical History Surgical History: Yes Surgery Procedure, Year, and Place: TONSILS; APPENDIX; CHIARI MALFORMATION DECOMPRESSION C1 - C2 LAMINECTOMY -JUNE 22 2014 DONE AT [facility]. CHIARI MALFORMATION DECOMPRESSION REPEAT 06/28/15, OP SITE OK FOR MRI SCAN PER DR JASSO BASED ON CT 10/26/16 - Family History Known Family History: Positive: None, Cardiac Disease - father-chf, Hypertension , Respiratory Disease - MOTHER COPD Family History: daughter - TURNER's - Social History Lives: With Family Alcohol Use: Rare Substance Use Type: Prescribed Smoking Status (MU): Light Every Day Tobacco Smoker Type: Cigarettes Amount Used/How Often: 1/2 PPD Length of Time of Smoking/Using Tobacco: Since Age 19 Have You Smoked in the Last Year: Yes When Did the Patient Quit Smoking/Using Tobacco: 2 years Household Exposure Type: Cigarettes - Immunization History Most Recent Influenza Vaccination: July 2016 Most Recent Tetanus Shot: 11/23/2010 Most Recent Pneumonia Vaccination: 11/23/2010 Review of Systems Neurological: Headache All Other Systems Reviewed And Are Negative: Yes Physical Exam Triage Information Reviewed: Yes Appearance: Well-Appearing, No Pain Distress, Well-Nourished Vital Signs: Initial Vital Signs Temp 100.0 F 12/26/17 10:32 Pulse 100 12/26/17 10:32 Resp 18 12/26/17 10:32 BP 134/86 12/26/17 10:32 Pulse Ox 100 12/26/17 10:32 Vital Signs Reviewed: Yes Eyes: Positive: Conjunctiva Clear. Negative: Conjunctiva Inflamed ENT: Positive: Normal ENT inspection Neck: Positive: Supple, Nontender, No Lymphadenopathy Respiratory: Positive: Lungs clear, Normal breath sounds, No respiratory distress, No accessory muscle use. Negative: Respiratory distress, Decreased breath sounds, Accessory muscle use, Crackles, Rhonchi, Stridor, Wheezing Cardiovascular: Positive: No Murmur, Pulses Normal, Brisk Capillary Refill Abdomen Description: Positive: No Organomegaly, Soft. Negative: Distended, Guarding Musculoskeletal: Positive: Strength Intact, ROM Intact, No Edema Neurological: Positive: Alert, Muscle Tone Normal. Negative: Fatigued Psychological: Positive: Age Appropriate Behavior Skin: Negative: rashes Headache Course/Dx - Course Course Of Treatment: typical migraine. - Differential Dx/Diagnosis Provider Diagnoses: migraine. Discharge - Discharge Plan Condition: Good Disposition: HOME Prescriptions: Yyamtxvftd-Kvikrjz-Kzkyelgt [Fiorinal 50-325-40 mg-] 1 cap PO Q6H PRN #20 cap MDD 20 PRN Reason: Headache Patient Education Materials: Migraine Headache (ED) Referrals: Non Staff,Doctor [Primary Care Provider] -
== END 2017-12-26 11:11 | disposition home or self-care (01) ==
LOC: UCCORT 09:41
DX: G43.909 Migraine, unspecified, not intractable, without status migrainosus (principal); F17.210 Nicotine dependence, cigarettes, uncomplicated
CPT/HCPCS: 99212; G0463

== ENCOUNTER 2018-01-11 13:30 | Emergency (ER) | payer OTHER ==
[2018-01-11 15:57] VITALS: BP 129/66
--- NOTE | 2018-01-11 16:16 | UC ---
Headache HPI - HPI Summary HPI Summary: 37 yo female with occipital TURNER since 10 AM this is her typical migraine photophobia mild disequilibrium has had chiari decompression x 2 has had cervical lamenectomy x2 had MRI last weekend and it was normal (post surgical changes) States Maxalt works best for her migraines but is not covered no vomiting or fever - History Of Current Complaint Chief Complaint: UCHeadache Stated Complaint: TURNER Time Seen by Provider: 01/11/18 15:58 Hx Obtained From: Patient Hx Last Menstrual Period: pt on depo and states not getting a menses Onset/Duration: Gradual Onset Initially Headache Was: Severe Pain Intensity: 7 Pain Scale Used: 0-10 Numeric Timing: Constant Character: Throbbing Location of Headache: Occipital Associated Signs And Symptoms: Positive: Nausea Related History: Similar Episode/DX As: - migraine - Allergies/Home Medications Allergies/Adverse Reactions: Allergies Allergy/AdvReac Type Severity Reaction Status Date / Time MS Cephalosporins Allergy Severe respiratory Verified 01/11/18 15:58 [Cephalosporins] MS Sulfamethoxazole Allergy Severe respiratory Verified 01/11/18 15:58 w/Trimethoprim [From Bactrim] MS Iodinated Diagnostic Allergy Hives Verified 01/11/18 15:58 Agents [Iodinated Diagnostic Agents] MS Tramadol [From Ultram] Allergy Anaphylatic Verified 01/11/18 15:58 Shock MS Metoclopramide AdvReac Agitation Verified 01/11/18 15:58 [From Reglan] MS Sumatriptan [From Imitrex] AdvReac Pain Verified 01/11/18 15:58 PMH/Surg Hx/FS Hx/Imm Hx Previously Healthy: Yes Other History Of: Negative For: HIV, Hepatitis B, Hepatitis C, Anticoagulant Therapy - Surgical History Surgical History: Yes Surgery Procedure, Year, and Place: TONSILS; APPENDIX; CHIARI MALFORMATION DECOMPRESSION C1 - C2 LAMINECTOMY -JUNE 22 2014 DONE AT [facility]. CHIARI MALFORMATION DECOMPRESSION REPEAT 06/28/15, OP SITE OK FOR MRI SCAN PER DR JASSO BASED ON CT 10/26/16 - Family History Known Family History: Positive: Cardiac Disease - father-chf, Hypertension, Respiratory Disease - MOTHER COPD Family History: daughter - TURNER's - Social History Alcohol Use: Rare Substance Use Type: Prescribed Smoking Status (MU): Light Every Day Tobacco Smoker Type: Cigarettes Amount Used/How Often: 1/2 PPD Length of Time of Smoking/Using Tobacco: Since Age 19 Have You Smoked in the Last Year: Yes When Did the Patient Quit Smoking/Using Tobacco: 2 years Household Exposure Type: Cigarettes - Immunization History Most Recent Influenza Vaccination: July 2016 Most Recent Tetanus Shot: 11/23/2010 Most Recent Pneumonia Vaccination: 11/23/2010 Review of Systems Constitutional: Negative Skin: Negative Eyes: Photophobia ENT: Negative Respiratory: Negative Cardiovascular: Negative Gastrointestinal: Nausea Genitourinary: Negative Motor: Negative Neurovascular: Negative Musculoskeletal: Negative Neurological: Headache Psychological: Negative Is Patient Immunocompromised?: No All Other Systems Reviewed And Are Negative: Yes Physical Exam Triage Information Reviewed: Yes Appearance: Well-Appearing, No Pain Distress, Well-Nourished Vital Signs: Initial Vital Signs Temp 99.1 F 01/11/18 15:52 Pulse 98 01/11/18 15:52 Resp 16 01/11/18 15:52 BP 129/66 01/11/18 15:52 Pulse Ox 98 01/11/18 15:52 Vital Signs Reviewed: Yes Eyes: Positive: Conjunctiva Clear ENT: Positive: Pharynx normal, Uvula midline. Negative: Nasal congestion, Nasal drainage, Muffled voice, Hoarse voice, Dental tenderness, Sinus tenderness Neck exam: Normal Neck: Positive: Supple, Nontender, No Lymphadenopathy Respiratory: Positive: Lungs clear, Normal breath sounds, No respiratory distress, No accessory muscle use Cardiovascular: Positive: RRR, No Murmur Musculoskeletal: Positive: ROM Intact, No Edema Neurological Exam: Normal Neurological: Positive: Alert, Muscle Tone Normal, Other: - GCS 15/15 Psychological Exam: Normal Skin Exam: Normal Headache Course/Dx - Course Course Of Treatment: Reference #: [id number] - Differential Dx/Diagnosis Provider Diagnoses: migraine headache Discharge - Discharge Plan Condition: Stable Disposition: HOME Prescriptions: Butalb/Acetamin/Caff TAB* [Fioricet TAB*] 1 tab PO Q6H PRN #12 tab MDD 4 PRN Reason: Headache Patient Education Materials: Migraine Headache (ED) Referrals: Non Staff,Doctor [Primary Care Provider] - Additional Instructions: to ER for worsening symptoms see your MD next week
== END 2018-01-11 16:24 | disposition home or self-care (01) ==
LOC: UCCORT 13:30
DX: G43.909 Migraine, unspecified, not intractable, without status migrainosus (principal); F17.210 Nicotine dependence, cigarettes, uncomplicated
CPT/HCPCS: 99212; G0463

== ENCOUNTER 2018-01-18 08:08 | Emergency (ER) | payer OTHER ==
[2018-01-18 08:30] VITALS: BP 121/84
--- NOTE | 2018-01-18 10:28 | UC ---
Headache HPI - HPI Summary HPI Summary: pt with h/o migraines and an intense cat allergy presents today with sinus pressure, turner and rt ear pain. the turner, at this point, seems to resemble pt's usual migraine pattern including the the perception of a metallic taste in her mouth. the only difference is that pt is also experiencing sinus congestion and pain. her nose is not running but it does feel stuffy. she feels as if she is coming down with something. pt also notes that she has been feeding a cat for her neighbor who is out of town. she has been taking zyrtec since she started feeding the cat 4 days ago. she denies f/c/cough/sob/st/n/v/abd pain/ cp and other nuerological sx such as confusion and photophobia. - History Of Current Complaint Chief Complaint: UCHeadasurya Stated Complaint: RIGHT EAR PAIN,HEADACHE,SINUS Time Seen by Provider: 01/18/18 08:16 Hx Obtained From: Patient Hx Last Menstrual Period: 01/03/18 ?: No Onset/Duration: Sudden Onset, Still Present Onset Of Symptoms: Sudden Initially Headache Was: Moderate Pain Intensity: 6 Pain Scale Used: 0-10 Numeric Timing: Constant Character: Pressure, Typical Headache - plus sinus/ear pressure, Migraine Location of Headache: Frontal, Occipital, Other: - maxillary Aggravating Factor(s): Position Change - bending forward Allevating Factor(s): Nothing Associated Signs And Symptoms: Positive: Sinus Pressure. Negative: Dizziness, Seizure, Nausea, Vomiting, Fever, Neck Pain, Neck Stiffness, Decreased LOC, Visual Changes - Allergies/Home Medications Allergies/Adverse Reactions: Allergies Allergy/AdvReac Type Severity Reaction Status Date / Time Cephalosporins Allergy Unknown Shortness Verified 01/18/18 08:20 of Breath sulfamethoxazole Allergy Unknown BREATHING Verified 01/18/18 08:20 [From Bactrim] PROBLEM tramadol Allergy Unknown Hives Verified 01/18/18 08:22 trimethoprim [From Bactrim] Allergy Unknown BREATHING Verified 01/18/18 08:20 PROBLEM sumatriptan [From Imitrex] Allergy RASH AND Verified 01/18/18 08:[address] CONTRAST Allergy Unknown HIVES AND Uncoded 01/18/18 08:22 DIFFICULTY BREATHING PMH/Surg Hx/FS Hx/Imm Hx Previously Healthy: No - h/o chiari malformation Other History Of: Negative For: HIV, Hepatitis B, Hepatitis C, Anticoagulant Therapy - Surgical History Surgical History: Yes Surgery Procedure, Year, and Place: TONSILS; APPENDIX; CHIARI MALFORMATION DECOMPRESSION C1 - C2 LAMINECTOMY -JUNE 22 2014 DONE AT [facility]. CHIARI MALFORMATION DECOMPRESSION REPEAT 06/28/15, OP SITE OK FOR MRI SCAN PER DR JASSO BASED ON CT 10/26/16 - Family History Known Family History: Positive: None, Cardiac Disease - father-chf, Hypertension , Respiratory Disease - MOTHER COPD Family History: daughter - TURNER's - Social History Lives: With Family Alcohol Use: Rare Substance Use Type: Prescribed Smoking Status (MU): Light Every Day Tobacco Smoker Type: Cigarettes Amount Used/How Often: 1/2 PPD Length of Time of Smoking/Using Tobacco: Since Age 19 Have You Smoked in the Last Year: Yes When Did the Patient Quit Smoking/Using Tobacco: 2 years Household Exposure Type: Cigarettes Cessation Counseling: Counseled 3+Min - 10 Min - Immunization History Most Recent Influenza Vaccination: July 2016 Most Recent Tetanus Shot: 11/23/2010 Most Recent Pneumonia Vaccination: 11/23/2010 Review of Systems Constitutional: Negative Skin: Negative Eyes: Negative ENT: Ear Ache, Nasal Discharge, Sinus Congestion, Sinus Pain/Tenderness Respiratory: Negative Cardiovascular: Negative Gastrointestinal: Negative Genitourinary: Negative Musculoskeletal: Negative Neurological: Headache Psychological: Negative All Other Systems Reviewed And Are Negative: Yes Physical Exam Triage Information Reviewed: Yes Appearance: Well-Appearing, No Pain Distress, Well-Nourished Vital Signs: Initial Vital Signs Temp 98.2 F 01/18/18 08:23 Pulse 119 01/18/18 08:23 Resp 20 01/18/18 08:23 BP 121/84 01/18/18 08:23 Pulse Ox 100 01/18/18 08:23 Vital Signs Reviewed: Yes Eyes: Positive: Conjunctiva Clear. Negative: Discharge ENT: Positive: Hearing grossly normal, Pharynx normal, Nasal congestion, Nasal drainage, TMs normal, Sinus tenderness - exquisite over bl maxillary. Negative : Tonsillar swelling, Tonsillar exudate, Trismus, Muffled voice, Hoarse voice, Dental tenderness Dental Exam: Normal Neck: Positive: Supple, Nontender, No Lymphadenopathy Respiratory: Positive: Lungs clear, Normal breath sounds, No respiratory distress, No accessory muscle use Cardiovascular: Positive: RRR - tachy on initial read, reg rate on manual recheck(96bpm.), No Murmur, Other: - pt was tachy at the beginning of visit ( she had just had coffee and excedrine p/t arrival.) pulse was rechecked by me manually and found to be 96 bpm. nursing got similar read off of the machine. Musculoskeletal Exam: Normal Neurological: Positive: Alert, Muscle Tone Normal Psychological: Positive: Age Appropriate Behavior Skin Exam: Normal Headache Course/Dx - Differential Dx/Diagnosis Differential Diagnosis/HQI/PQRI: Migraine, Sinus Headache, Tension Headache, Viral Syndrome Provider Diagnoses: migraine, sinusitis, allergies Discharge - Discharge Plan Condition: Stable Disposition: HOME Prescriptions: Butalb/Acetamin/Caff TAB* [Fioricet TAB*] 1 tab PO Q6H PRN #12 tab MDD 4 PRN Reason: Migraine Headache Patient Education Materials: Butalbital/Acetaminophen/Caffeine (By mouth), Sinusitis (ED), Migraine Headache (ED), Allergies (ED) Referrals: Angela HOPKINS,Alejandro Talavera [Primary Care Provider] -
== END 2018-01-18 09:48 | disposition home or self-care (01) ==
LOC: UCCORT 08:08
DX: G43.909 Migraine, unspecified, not intractable, without status migrainosus (principal); J32.9 Chronic sinusitis, unspecified; J30.81 Allergic rhinitis due to animal (cat) (dog) hair and dander; Z88.1 Allergy status to other antibiotic agents; Z88.8 Allergy status to other drugs, medicaments and biological substances; F17.210 Nicotine dependence, cigarettes, uncomplicated
CPT/HCPCS: 99212; G0463

== ENCOUNTER 2018-02-22 16:13 | Emergency (ER) | payer OTHER ==
[2018-02-22 16:40] VITALS: BP 136/75
--- NOTE | 2018-02-22 17:11 | UC ---
Ear Complaint HPI - HPI Summary HPI Summary: Pt c/o left ear pain and headache X 3 days. Pt has history of OM and migraine TURNER. - History of Current Complaint Chief Complaint: UCEar Stated Complaint: LEFT EAR PAIN Time Seen by Provider: 02/22/18 17:04 Hx Obtained From: Patient Hx Last Menstrual Period: 2 WEEKS AGO ?: No Onset/Duration: Gradual Onset, Lasting Days, Still Present, Worse Since - onset Severity Initially: Mild Severity Currently: Moderate Pain Intensity: 7 Related History: Smoking - Allergies/Home Medications Allergies/Adverse Reactions: Allergies Allergy/AdvReac Type Severity Reaction Status Date / Time Cephalosporins Allergy Unknown Shortness Verified 02/22/18 16:36 of Breath sulfamethoxazole Allergy Unknown BREATHING Verified 02/22/18 16:36 [From Bactrim] PROBLEM tramadol Allergy Unknown Hives Verified 02/22/18 16:36 trimethoprim [From Bactrim] Allergy Unknown BREATHING Verified 02/22/18 16:36 PROBLEM sumatriptan [From Imitrex] Allergy RASH AND Verified 02/22/18 16:[address] CONTRAST Allergy Unknown HIVES AND Uncoded 02/22/18 16:36 DIFFICULTY BREATHING Home Medications: Home Medications Amitriptyline TAB* [Elavil TAB*] 50 mg PO BEDTIME 02/22/18 [History Confirmed ] Aspirin/Acetaminophen/Caffeine [Excedrin Migraine Caplet] 1 tab BID PRN [History Confirmed 02/22/18] Cetirizine* [ZyrTEC 10 MG TAB*] 10 mg PO DAILY 02/22/18 [History Confirmed 02/22] Gabapentin TAB(NF) [Neurontin 600 mg TAB(NF)] 1,200 mg TID 02/22/18 [History Confirmed 02/22/18] PMH/Surg Hx/FS Hx/Imm Hx Previously Healthy: Yes Other History Of: Negative For: HIV, Hepatitis B, Hepatitis C, Anticoagulant Therapy - Surgical History Surgical History: Yes Surgery Procedure, Year, and Place: TONSILS; APPENDIX; CHIARI MALFORMATION DECOMPRESSION C1 - C2 LAMINECTOMY -JUNE 22 2014 DONE AT [facility]. CHIARI MALFORMATION DECOMPRESSION REPEAT 06/28/15, OP SITE OK FOR MRI SCAN PER DR JASSO BASED ON CT 10/26/16 - Family History Known Family History: Positive: None, Cardiac Disease - father-chf, Hypertension , Respiratory Disease - MOTHER COPD Family History: daughter - TURNER's - Social History Occupation: Employed Full-time Lives: With Family Alcohol Use: None Substance Use Type: None Smoking Status (MU): Current Every Day Smoker Type: Cigarettes Amount Used/How Often: 1/2 PPD Length of Time of Smoking/Using Tobacco: Since Age 19 Have You Smoked in the Last Year: Yes When Did the Patient Quit Smoking/Using Tobacco: 2 years Household Exposure Type: Cigarettes - Immunization History Most Recent Influenza Vaccination: July 2016 Most Recent Tetanus Shot: 11/23/2010 Most Recent Pneumonia Vaccination: 11/23/2010 Review of Systems Constitutional: Negative Skin: Negative Eyes: Negative ENT: Ear Ache Respiratory: Negative Cardiovascular: Negative Gastrointestinal: Negative Genitourinary: Negative Motor: Negative Neurovascular: Negative Musculoskeletal: Negative Neurological: Headache Psychological: Negative Is Patient Immunocompromised?: No All Other Systems Reviewed And Are Negative: Yes Physical Exam Triage Information Reviewed: Yes Appearance: Pain Distress Vital Signs: Initial Vital Signs Temp 99.4 F 02/22/18 16:37 Pulse 99 02/22/18 16:37 Resp 16 02/22/18 16:37 BP 136/75 02/22/18 16:37 Pulse Ox 100 02/22/18 16:37 Vital Signs Reviewed: Yes Eye Exam: Normal ENT: Positive: Nasal congestion, Other - tragal tenderness, Dental: Positive: Percussion Tenderness @ - left lower molars Neck exam: Normal Respiratory Exam: Normal Cardiovascular Exam: Normal Musculoskeletal Exam: Normal Neurological Exam: Normal Psychological Exam: Normal Skin Exam: Normal Ear Complaint Course/Dx - Course Course Of Treatment: Please see DIRECTOR COLLEGE report. [facility] Reports that she does not have a regular PCP - Differential Dx/Diagnosis Differential Diagnosis/HQI/PQRI: Mastoiditis, Otitis Externa, URI Provider Diagnoses: dental abscess. tension TURNER Discharge - Sign-Out/Discharge Documenting (check all that apply): Discharge - Discharge Plan Condition: Stable Disposition: HOME Prescriptions: Azithromycin TAB* [Zithromax TAB (Z-ANGY) 250 mg #6 tabs] 2 tab PO .TODAY, THEN 1 DAILY #1 angy Butalb/Acetamin/Caff TAB* [Fioricet TAB*] 1 tab PO Q6H PRN #12 tab MDD 4 PRN Reason: Migraine Headache Patient Education Materials: Tension Headache (ED), Dental Abscess (ED) Referrals: Angela HOPKINS,Alejandro Talavera [Primary Care Provider] - As Soon As Possible - Billing Disposition and Condition Condition: STABLE Disposition: HOME
== END 2018-02-22 17:21 | disposition home or self-care (01) ==
LOC: UCCORT 16:13
DX: K04.7 Periapical abscess without sinus (principal); G44.209 Tension-type headache, unspecified, not intractable; F17.210 Nicotine dependence, cigarettes, uncomplicated; Z88.3 Allergy status to other anti-infective agents; Z88.5 Allergy status to narcotic agent; Z88.2 Allergy status to sulfonamides; Z88.8 Allergy status to other drugs, medicaments and biological substances
CPT/HCPCS: 99212; G0463

== ENCOUNTER 2018-03-07 16:46 | Emergency (ER) | payer OTHER ==
[2018-03-07 19:22] VITALS: BP 135/73
--- NOTE | 2018-04-12 20:39 | UC ---
Complaint Female HPI - HPI Summary HPI Summary: 3 days of low back pain radiating in to lower abdomen - History Of Current Complaint Chief Complaint: UCGU Stated Complaint: URINARY/LOWER BACK PAIN Time Seen by Provider: 03/07/18 19:24 Hx Obtained From: Patient Hx Last Menstrual Period: 2 WEEKS AGO ?: No Onset/Duration: Gradual Onset, Lasting Days - 3 Severity Initially: Moderate Severity Currently: Moderate Pain Intensity: 8 Pain Scale Used: 0-10 Numeric Associated Signs And Symptoms: Positive: Back Pain - Allergies/Home Medications Allergies/Adverse Reactions: Allergies Allergy/AdvReac Type Severity Reaction Status Date / Time Cephalosporins Allergy Unknown Shortness Verified 03/22/18 14:17 of Breath sulfamethoxazole Allergy Unknown BREATHING Verified 03/22/18 14:17 [From Bactrim] PROBLEM tramadol Allergy Unknown Hives Verified 03/22/18 14:17 trimethoprim [From Bactrim] Allergy Unknown BREATHING Verified 03/22/18 14:17 PROBLEM sumatriptan [From Imitrex] Allergy RASH AND Verified 03/22/18 14:[address] CONTRAST Allergy Unknown HIVES AND Uncoded 03/22/18 14:17 DIFFICULTY BREATHING PMH/Surg Hx/FS Hx/Imm Hx Previously Healthy: Yes - Chronic pain Neurological History: Migraine Other History Of: Negative For: HIV, Hepatitis B, Hepatitis C, Anticoagulant Therapy - Surgical History Surgical History: Yes Surgery Procedure, Year, and Place: TONSILS; APPENDIX; CHIARI MALFORMATION DECOMPRESSION C1 - C2 LAMINECTOMY -JUNE 22 2014 DONE AT [facility]. CHIARI MALFORMATION DECOMPRESSION REPEAT 06/28/15, OP SITE OK FOR MRI SCAN PER DR JASSO BASED ON CT 10/26/16 - Family History Known Family History: Positive: None, Cardiac Disease - father-chf, Hypertension , Respiratory Disease - MOTHER COPD Family History: daughter - TURNER's - Social History Occupation: Unemployed Lives: With Family Alcohol Use: None Substance Use Type: None Smoking Status (MU): Current Every Day Smoker Type: Cigarettes Amount Used/How Often: 1/2 PPD Length of Time of Smoking/Using Tobacco: Since Age 19 Have You Smoked in the Last Year: Yes When Did the Patient Quit Smoking/Using Tobacco: 2 years Household Exposure Type: Cigarettes - Immunization History Most Recent Influenza Vaccination: July 2016 Most Recent Tetanus Shot: 11/23/2010 Most Recent Pneumonia Vaccination: 11/23/2010 Review of Systems Constitutional: Negative Skin: Negative Eyes: Negative ENT: Negative Respiratory: Negative Cardiovascular: Negative Gastrointestinal: Negative Genitourinary: Other - pain in back radiating in to bladder (usual kidney stone pain) Motor: Negative Neurovascular: Negative Musculoskeletal: Negative Neurological: Negative Psychological: Negative Is Patient Immunocompromised?: No All Other Systems Reviewed And Are Negative: Yes Physical Exam Triage Information Reviewed: Yes Appearance: Well-Appearing, No Pain Distress, Well-Nourished Vital Signs: Initial Vital Signs Temp 99.9 F 03/07/18 19:18 Pulse 103 03/07/18 19:18 Resp 16 03/07/18 19:18 BP 135/73 03/07/18 19:18 Pulse Ox 99 03/07/18 19:18 Vital Signs Reviewed: Yes Eye Exam: Normal Eyes: Positive: Conjunctiva Clear ENT Exam: Normal ENT: Positive: Normal ENT inspection, Hearing grossly normal, Pharynx normal. Negative: Trismus, Muffled voice, Hoarse voice Dental Exam: Normal Neck exam: Normal Neck: Positive: Supple, Nontender, No Lymphadenopathy Respiratory Exam: Normal Respiratory: Positive: Chest non-tender, Lungs clear, Normal breath sounds, No respiratory distress, No accessory muscle use Cardiovascular Exam: Normal Cardiovascular: Positive: RRR, No Murmur, Pulses Normal, Brisk Capillary Refill Abdominal Exam: Normal Abdomen Description: Positive: Nontender, No Organomegaly, Soft. Negative: CVA Tenderness (R), CVA Tenderness (L) Musculoskeletal Exam: Normal Musculoskeletal: Positive: Strength Intact, ROM Intact, No Edema Neurological Exam: Normal Neurological: Positive: Alert, Muscle Tone Normal Psychological Exam: Normal Skin Exam: Normal Complaint Female Dx - Course Course Of Treatment: patient will be d/c to follow with Dr. Vale - Differential Dx/Diagnosis Provider Diagnoses: Pelvic pain Discharge - Sign-Out/Discharge Documenting (check all that apply): Discharge/Admit/Transfer - Discharge Plan Condition: Guarded Disposition: HOME Patient Education Materials: Flank Pain (ED) Referrals: Josy Vale MD [Primary Care Provider] - 1 Day - Billing Disposition and Condition Condition: GUARDED Disposition: HOME
== END 2018-03-07 19:45 | disposition home or self-care (01) ==
LOC: UCCORT 16:46
DX: R10.2 Pelvic and perineal pain (principal); G43.909 Migraine, unspecified, not intractable, without status migrainosus; Z88.2 Allergy status to sulfonamides; Z88.1 Allergy status to other antibiotic agents; Z91.041 Radiographic dye allergy status; F17.210 Nicotine dependence, cigarettes, uncomplicated
CPT/HCPCS: 81003; 84702; 99211; G0463

== ENCOUNTER 2018-03-22 13:57 | Emergency (ER) | payer OTHER ==
[2018-03-22 14:21] VITALS: BP 121/71
--- NOTE | 2018-03-22 15:33 | UC ---
Headache HPI - HPI Summary HPI Summary: 37 year old female with history of basilar migraines here with here usual migraine headache. Her headache is occipital, non-radiating with associated photophobia. Reports nausea but no vomiting. No new sensory deficit. Of note, patient has been on multiple doses of lyocghjsyp-qce-jfynpose and she was denying recent rx. Below is copy of her rx history for controlled substance. She refused to see our APPLICATION COORDINATOR because our APPLICATION COORDINATOR has refused to give her butalbital-asa- caffeine. Rx Written Rx Dispensed Drug Quantity Days Supply Prescriber Name 03/04/2018 03/04/2018 cgrsbmozed-tos-iwomcoow cap 6 2 Adelita Boo L Patient Name: Crystal Key Date: 1980 Address: [address] [place] [address] Sex: Female Rx Written Rx Dispensed Drug Quantity Days Supply Prescriber Name 01/10/2018 01/10/2018 iefcpsazqt-rkg-zjxqkqey cap 30 7 Sarkis Leger MD 12/14/2017 12/14/2017 wunfcgkoiu-xki-lwqzccqu cap 18 3 Carmen Sepulveda 11/28/2017 11/29/2017 oddnkg-nlhhlge-mmgbn 50-325-40 20 4 Saritha Soto Patient Name: Crystal Key Date: 1980 Address: [address] [place] [address] Sex: Female Rx Written Rx Dispensed Drug Quantity Days Supply Prescriber Name 01/04/2018 01/04/2018 xtfdxukuwv-pic-oztekgpv cap 20 6 Nicole Valerio) 12/26/2017 12/26/2017 atzvfwhsfv-vhg-mskegwvr cap 20 5 Facundo Doss MD 12/20/2017 12/20/2017 diazepam 10 mg tablet 2 1 Moriah Sandra APPLICATION COORDINATOR 06/28/2017 06/29/2017 alprazolam 0.25 mg tablet 10 3 Clint Chopra MD Patient Name: Crystal Key Date: 1980 Address: [address] [place] [address] Sex: Female Rx Written Rx Dispensed Drug Quantity Days Supply Prescriber Name 12/17/2017 12/17/2017 ogosftydam-mod-fnkyybfd cap 36 6 Alejandro Miller MD 10/23/2017 10/23/2017 carisoprodol 350 mg tablet 30 8 Leola Estrella Patient Name: Crystal Key Date: 1980 Address: [address] [place] [address] Sex: Female - History Of Current Complaint Chief Complaint: UCHeadache Stated Complaint: MIGRAINE Time Seen by Provider: 03/22/18 14:47 Hx Obtained From: Patient Hx Last Menstrual Period: unknown, depo ?: No Onset Of Symptoms: Gradual Pain Intensity: 8 Character: Migraine Location of Headache: Occipital Aggravating Factor(s): Bright Lights Allevating Factor(s): Rest Associated Signs And Symptoms: Positive: Nausea. Negative: Seizure, Vomiting, Neck Pain, Decreased LOC - Allergies/Home Medications Allergies/Adverse Reactions: Allergies Allergy/AdvReac Type Severity Reaction Status Date / Time Cephalosporins Allergy Unknown Shortness Verified 03/22/18 14:17 of Breath sulfamethoxazole Allergy Unknown BREATHING Verified 03/22/18 14:17 [From Bactrim] PROBLEM tramadol Allergy Unknown Hives Verified 03/22/18 14:17 trimethoprim [From Bactrim] Allergy Unknown BREATHING Verified 03/22/18 14:17 PROBLEM sumatriptan [From Imitrex] Allergy RASH AND Verified 03/22/18 14:[address] CONTRAST Allergy Unknown HIVES AND Uncoded 03/22/18 14:17 DIFFICULTY BREATHING PMH/Surg Hx/FS Hx/Imm Hx Previously Healthy: No Other History Of: Negative For: HIV, Hepatitis B, Hepatitis C, Anticoagulant Therapy - Surgical History Surgical History: Yes Surgery Procedure, Year, and Place: TONSILS; APPENDIX; CHIARI MALFORMATION DECOMPRESSION C1 - C2 LAMINECTOMY -JUNE 22 2014 DONE AT [facility]. CHIARI MALFORMATION DECOMPRESSION REPEAT 06/28/15, OP SITE OK FOR MRI SCAN PER DR JASSO BASED ON CT 10/26/16 - Family History Known Family History: Positive: None, Cardiac Disease - father-chf, Hypertension , Respiratory Disease - MOTHER COPD Family History: daughter - TURNER's - Social History Alcohol Use: None Substance Use Type: None Smoking Status (MU): Current Every Day Smoker Type: Cigarettes Amount Used/How Often: 1/2 PPD Length of Time of Smoking/Using Tobacco: Since Age 19 Have You Smoked in the Last Year: Yes When Did the Patient Quit Smoking/Using Tobacco: 2 years Household Exposure Type: Cigarettes - Immunization History Most Recent Influenza Vaccination: July 2016 Most Recent Tetanus Shot: 11/23/2010 Most Recent Pneumonia Vaccination: 11/23/2010 Review of Systems Constitutional: Negative Skin: Negative Eyes: Negative ENT: Negative Respiratory: Negative Cardiovascular: Negative Gastrointestinal: Negative Genitourinary: Negative Motor: Negative Musculoskeletal: Negative Neurological: Headache, Paresthesia Psychological: Negative Is Patient Immunocompromised?: Yes All Other Systems Reviewed And Are Negative: Yes Physical Exam Triage Information Reviewed: No Appearance: Well-Appearing, No Pain Distress, Well-Nourished Vital Signs: Initial Vital Signs Temp 37.4 C 03/22/18 14:15 Pulse 100 03/22/18 14:15 Resp 16 03/22/18 14:15 BP 121/71 03/22/18 14:15 Pulse Ox 100 03/22/18 14:15 Vital Signs Reviewed: Yes ENT Exam: Normal Respiratory Exam: Normal Cardiovascular Exam: Normal Headache Course/Dx - Course Course Of Treatment: I had an extensive discussion about not having controlled substance as her first line and she was very confrontional about butalbital-asa- caffeine being controlled substance. She said, " I will bet you my car, its not controlled substance.". Since patient tried all other medications at home, will give her 10 pills of wseydhjedv-iyr-jizwwrpn. - Differential Dx/Diagnosis Differential Diagnosis/HQI/PQRI: Migraine, Sinus Headache, Viral Syndrome Provider Diagnoses: Migrane headache Discharge - Sign-Out/Discharge Documenting (check all that apply): Discharge/Admit/Transfer - Discharge Plan Condition: Good Disposition: HOME Prescriptions: Butalbital/Aspirin/Caffeine [Fiorinal 50-325-40 mg-] 1 cap PO Q6H PRN #10 cap MDD 2 PRN Reason: Headache Patient Education Materials: Acute Headache (ED) Forms: *Work Release Referrals: Non Staff,Doctor [Primary Care Provider] - - Billing Disposition and Condition Condition: GOOD Disposition: HOME
== END 2018-03-22 15:37 | disposition home or self-care (01) ==
LOC: UCCORT 13:57
DX: G43.909 Migraine, unspecified, not intractable, without status migrainosus (principal); F17.210 Nicotine dependence, cigarettes, uncomplicated; Z88.2 Allergy status to sulfonamides; Z88.8 Allergy status to other drugs, medicaments and biological substances; Z88.3 Allergy status to other anti-infective agents; Z91.041 Radiographic dye allergy status; Z88.5 Allergy status to narcotic agent
CPT/HCPCS: 99212; G0463

== ENCOUNTER 2018-04-16 18:22 | Emergency (ER) | payer OTHER ==
[2018-04-16 20:30] VITALS: BP 139/88
--- NOTE | 2018-04-16 21:05 | ED ---
Headache - HPI Summary HPI Summary: 37 yr old female with headache for about 12 hours, migraine like, but associated light sensitive. She states that she has been having more difficulty with fine motor skills opening a cheese bag today for making a quesadilla for her son, and also for slight more off balance than usual.. She states she has chirari decompression surgery times two, and she states she is supposed to go to [facility] in [place] for evaluation for a possible third decompression. She denies fever, chills. She is requesting a fioricet prescription. - History Of Current Complaint Chief Complaint: UCHeadache Stated Complaint: MIGRAINE Time Seen by Provider: 04/16/18 20:29 Hx Last Menstrual Period: 04/12/18 - Allergies/Home Medications Allergies/Adverse Reactions: Allergies Allergy/AdvReac Type Severity Reaction Status Date / Time Cephalosporins Allergy Unknown Shortness Verified 03/22/18 14:17 of Breath sulfamethoxazole Allergy Unknown BREATHING Verified 03/22/18 14:17 [From Bactrim] PROBLEM tramadol Allergy Unknown Hives Verified 03/22/18 14:17 trimethoprim [From Bactrim] Allergy Unknown BREATHING Verified 03/22/18 14:17 PROBLEM sumatriptan [From Imitrex] Allergy RASH AND Verified 03/22/18 14:[address] CONTRAST Allergy Unknown HIVES AND Uncoded 03/22/18 14:17 DIFFICULTY BREATHING PMH/Surg Hx/FS Hx/Imm Hx Endocrine/Hematology History: Denies: Hx Anticoagulant Therapy, Hx Diabetes, Hx Thyroid Disease Cardiovascular History: Denies: Hx Congestive Heart Failure, Hx Deep Vein Thrombosis, Hx Hypertension , Hx Myocardial Infarction, Hx Pacemaker/ICD Respiratory History: Reports: Hx Asthma, Hx Bronchopulmonary Dysplasia, Hx Seasonal Allergies Denies: Hx Chronic Obstructive Pulmonary Disease (COPD), Hx Lung Cancer, Hx Pneumonia, Hx Pulmonary Embolism GI History: Reports: Other GI Disorders - low abd pain x4 days, hx left ovary cyst, appendectomy 99 Denies: Hx Gall Bladder Disease, Hx Gastrointestinal Bleed, Hx Ulcer, Hx Urosepsis History: Reports: Hx Kidney Stones - DX 9MM RIGHT STONE X2 WKS AGO Denies: Hx Renal Disease Musculoskeletal History: Reports: Hx Back Problems - L3-L4; L4-L5; L5-S1 Herniated Disc Sensory History: Reports: Hx Contacts or Glasses Denies: Hx Hearing Aid Opthamlomology History: Reports: Hx Contacts or Glasses Neurological History: Reports: Hx Headaches, Hx Migraine, Other Neuro Impairments/Disorders - chiari malformation Denies: Hx Dementia, Hx Seizures, Hx Transient Ischemic Attacks (TIA) Psychiatric History: Reports: Hx Anxiety Denies: Hx Depression, Hx Panic Disorder, Hx Schizophrenia, Hx Bipolar Disorder, Hx Substance Abuse - Surgical History Surgery Procedure, Year, and Place: TONSILS; APPENDIX; CHIARI MALFORMATION DECOMPRESSION C1 - C2 LAMINECTOMY -JUNE 22 2014 DONE AT [facility]. CHIARI MALFORMATION DECOMPRESSION REPEAT 06/28/15, OP SITE OK FOR MRI SCAN PER DR JASSO BASED ON CT 10/26/16 Hx Anesthesia Reactions: No - Immunization History Date of Tetanus Vaccine: n Date of Influenza Vaccine: 07/2017 Infectious Disease History: No Infectious Disease History: Denies: Hx Clostridium Difficile, Hx Hepatitis, Hx Human Immunodeficiency Virus (HIV), Hx of Known/Suspected MRSA, Hx Shingles, Hx Tuberculosis, Hx Known/ Suspected VRE, Hx Known/Suspected VRSA, History Other Infectious Disease, Traveled Outside the [place] in Last 30 Days - Family History Known Family History: Positive: None, Cardiac Disease - father-chf, Hypertension , Respiratory Disease - MOTHER COPD Family History: daughter - TURNER's - Social History Lives: With Family Alcohol Use: None Hx Substance Use: No Substance Use Type: Reports: None Hx Tobacco Use: Yes Smoking Status (MU): Current Every Day Smoker Type: Cigarettes Amount Used/How Often: 1/2 PPD Length of Time of Smoking/Using Tobacco: Since Age 19 Have You Smoked in the Last Year: Yes Review of Systems Constitutional: Negative Positive: Photophobia. Negative: Blurred Vision Positive: Headache All Other Systems Reviewed And Are Negative: Yes Physical Exam Triage Information Reviewed: Yes Vital Signs On Initial Exam: Initial Vitals Temp Pulse Resp BP Pulse Ox 97.9 F 88 18 139/88 100 04/16/18 20:25 04/16/18 20:25 04/16/18 20:25 04/16/18 20:25 04/16/18 20:25 Vital Signs Reviewed: Yes Appearance: Positive: Well-Appearing, No Pain Distress Skin: Positive: Warm, Skin Color Reflects Adequate Perfusion Head/Face: Positive: Normal Head/Face Inspection Eyes: Positive: EOMI, ROCIO ENT: Positive: Normal ENT inspection, TMs normal Neck: Positive: Supple, Nontender. Negative: Nuchal Rigidity Respiratory/Lung Sounds: Positive: Clear to Auscultation Cardiovascular: Positive: RRR. Negative: Murmur Musculoskeletal: Positive: Normal, Strength/ROM Intact Neurological: Positive: Sensory/Motor Intact, Alert, Oriented to Person Place, Time, CN Intact II-III, Normal Gait, Speech Normal Psychiatric: Positive: Normal - [place] Coma Scale Best Eye Response: 4 - Spontaneous Best Motor Response: 6 - Obeys Commands Best Verbal Response: 5 - Oriented Coma Scale Total: 15 Diagnostics - Vital Signs Vital Signs Temp Pulse Resp BP Pulse Ox 04/16/18 20:25 97.9 F 88 18 139/88 100 - Laboratory Lab Statement: Any lab studies that have been ordered have been reviewed, and results considered in the medical decision making process. Headache Course/Dx - Course Course Of Treatment: 37 yr old female with elopement and refusal of transfer to ER for further evaluation for her complaint of headache, increasing disfunction opening bag this evening and feeling more off balance. She refused to wait to sign AMA, and got up and walked out of urgent care when she became angry that I would not write for the Fioricet,and that I recommended transfer for further neurological evaluation this evening. - Diagnoses Provider Diagnoses: Headache, Hypertension Discharge - Sign-Out/Discharge Documenting (check all that apply): Discharge/Admit/Transfer - Discharge Plan Condition: Good Disposition: HOME Patient Education Materials: Acute Headache (ED), Hypertension (ED) Referrals: Lorenza Oliver MD [Primary Care Provider] - - Billing Disposition and Condition Condition: GOOD Disposition: HOME
== END 2018-04-16 21:02 | disposition home or self-care (01) ==
LOC: UCCORT 18:22
DX: R51 Headache (principal); I10 Essential (primary) hypertension; Z88.8 Allergy status to other drugs, medicaments and biological substances; Z88.1 Allergy status to other antibiotic agents; Z91.041 Radiographic dye allergy status; F17.210 Nicotine dependence, cigarettes, uncomplicated
CPT/HCPCS: 99212; G0463

== ENCOUNTER 2018-05-18 19:52 | Emergency (ER) | payer OTHER ==
[2018-05-18 20:23] VITALS: BP 124/76
--- NOTE | 2018-05-18 20:52 | UC ---
Lower Extremity/Ankle HPI - HPI Summary HPI Summary: PATIENT TRIPPED ON HER DOG AND FELL DOWN THE [facility] LAST NIGHT. NO HEAD INJURY OR LOC. PRESENTS WITH PAIN, SWELLING AND BRUISING TO HER RIGHT FOOT AND ANKLE. IS ABLE TO WEIGHT-BEAR BUT WITH DISCOMFORT. - History of Current Complaint Chief Complaint: UCLowerExtremity Stated Complaint: R FOOT INJURY Time Seen by Provider: 05/18/18 20:15 Hx Obtained From: Patient Hx Last Menstrual Period: ON DEPO Onset/Duration: Sudden Onset, Lasting Days - 1 DAY, Still Present Severity Initially: Moderate Severity Currently: Moderate Pain Intensity: 7 Pain Scale Used: 0-10 Numeric Aggravating Factor(s): Standing, Ambulation Alleviating Factor(s): Rest, Elevation Able to Bear Weight: Yes - WITH PAIN - Allergies/Home Medications Allergies/Adverse Reactions: Allergies Allergy/AdvReac Type Severity Reaction Status Date / Time Cephalosporins Allergy Unknown Shortness Verified 03/22/18 14:17 of Breath sulfamethoxazole Allergy Unknown BREATHING Verified 03/22/18 14:17 [From Bactrim] PROBLEM tramadol Allergy Unknown Hives Verified 03/22/18 14:17 trimethoprim [From Bactrim] Allergy Unknown BREATHING Verified 03/22/18 14:17 PROBLEM sumatriptan [From Imitrex] Allergy RASH AND Verified 03/22/18 14:[address] CONTRAST Allergy Unknown HIVES AND Uncoded 03/22/18 14:17 DIFFICULTY BREATHING Home Medications: Home Medications Acetaminophen [Tylophen] 1,000 mg PO Q6HR 05/18/18 [History Confirmed 05/18/18] Butalb/Acetamin/Caff TAB* [Fioricet TAB*] 1 tab PO DAILY 05/18/18 [History Confirmed 05/18/18] PMH/Surg Hx/FS Hx/Imm Hx Respiratory History: Asthma Neurological History: Migraine Other History Of: Negative For: HIV, Hepatitis B, Hepatitis C, Anticoagulant Therapy - Surgical History Surgical History: Yes Surgery Procedure, Year, and Place: TONSILS; APPENDIX; CHIARI MALFORMATION DECOMPRESSION C1 - C2 LAMINECTOMY -JUNE [address] [facility]. CHIARI MALFORMATION DECOMPRESSION REPEAT 06/28/15, OP SITE OK FOR MRI SCAN PER DR JASSO BASED ON CT 10/26/16 - Family History Known Family History: Positive: Cardiac Disease - father-chf, Hypertension, Respiratory Disease - MOTHER COPD Family History: daughter - TURNER's - Social History Alcohol Use: None Substance Use Type: None Smoking Status (MU): Current Every Day Smoker Type: Cigarettes Amount Used/How Often: 1/2 PPD Length of Time of Smoking/Using Tobacco: Since Age 19 Have You Smoked in the Last Year: Yes When Did the Patient Quit Smoking/Using Tobacco: 2 years Household Exposure Type: Cigarettes - Immunization History Most Recent Influenza Vaccination: July 2016 Most Recent Tetanus Shot: 11/23/2010 Most Recent Pneumonia Vaccination: 11/23/2010 Review of Systems Constitutional: Negative Skin: Bruising Respiratory: Negative Cardiovascular: Negative Gastrointestinal: Negative Musculoskeletal: Arthralgia, Decreased ROM, Edema All Other Systems Reviewed And Are Negative: Yes Physical Exam Triage Information Reviewed: Yes Appearance: Well-Appearing, No Pain Distress, Well-Nourished Vital Signs: Initial Vital Signs Temp 99.4 F 05/18/18 20:11 Pulse 91 05/18/18 20:11 Resp 15 05/18/18 20:11 BP 124/76 05/18/18 20:11 Pulse Ox 100 05/18/18 20:11 Vital Signs Reviewed: Yes Eyes: Positive: Conjunctiva Clear ENT: Positive: Hearing grossly normal Neck: Positive: Supple Respiratory: Positive: No respiratory distress, No accessory muscle use Cardiovascular: Positive: Pulses Normal Abdomen Description: Positive: Soft Musculoskeletal: Positive: ROM Limited @ - RIGHT ANKLE, Edema @ - RIGHT FOOT AND ANKLE, Other: - TTP RIGHT ANKLE MEDIAL MALLEOLUS > LATERAL MALLEOLUS. TTP RIGHT METATARSAL Neurological: Positive: Alert Psychological: Positive: Age Appropriate Behavior Skin: Positive: Other - BRUISING RIGHT FOOT. Negative: rashes Diagnostics - Radiology RIGHT FOOT/ANKLE XRAYS Xray Interpretation: Positive (See Comments) - SOFT TISSUE SWELLING Radiology Interpretation Completed By: Radiologist Lower Extremity Course/Dx - Differential Dx/Diagnosis Provider Diagnoses: RIGHT FOOT/ANKLE SPRAIN Discharge - Sign-Out/Discharge Documenting (check all that apply): Discharge/Admit/Transfer - Discharge Plan Condition: Stable Disposition: HOME Patient Education Materials: Ankle Sprain (ED), Foot Sprain (ED) Referrals: Lorenza Oliver MD [Primary Care Provider] - If Needed Additional Instructions: XRAY TODAY SHOWS SOFT TISSUE SWELLING BUT NO FRACTURE OR DISLOCATION. YOUR SYMPTOMS SHOULD IMPROVE SIGNIFICANTLY OVER THE NEXT 1-2 WEEKS. IF YOU DO NOT IMPROVE EXPECTED FOLLOW-UP WITH YOUR PCP. YOU MAY BENEFIT FROM REPEAT IMAGING AT THAT TIME. OTC IBUPROFEN OR ALEVE NEEDED FOR DISCOMFORT. REST, ICE , COMPRESS, ELEVATE. HESHAM WRAP AND GEL SPLINT FOR COMPRESSION AND SUPPORT. - Billing Disposition and Condition Condition: STABLE Disposition: Home
--- NOTE | 2018-05-18 21:15 | RAD ---
INDICATION: Right foot pain COMPARISON: None TECHNIQUE: AP, lateral, and oblique views were obtained. FINDINGS: The bony structures, joint spaces, and soft tissues are normal for age. IMPRESSION: NEGATIVE EXAMINATION.
--- NOTE | 2018-05-18 21:15 | RAD ---
INDICATION: Right ankle injury COMPARISON: None TECHNIQUE: AP, lateral, and oblique views were obtained. FINDINGS: There is no acute fracture. The ankle mortise is intact. There is moderate lateral soft tissue swelling.. IMPRESSION: SOFT TISSUE SWELLING. NO ACUTE FRACTURE.
== END 2018-05-18 21:32 | disposition home or self-care (01) ==
LOC: UCCORT 19:52
DX: S93.601A Unspecified sprain of right foot, initial encounter (principal); S93.401A Sprain of unspecified ligament of right ankle, initial encounter; W01.0XXA Fall on same level from slipping, tripping and stumbling without subsequent striking against object, initial encounter; Y93.9 Activity, unspecified; Y92.009 Unspecified place in unspecified non-institutional (private) residence as the place of occurrence of the external cause; W10.9XXA Fall (on) (from) unspecified stairs and steps, initial encounter; F17.210 Nicotine dependence, cigarettes, uncomplicated; Z91.041 Radiographic dye allergy status; Z88.1 Allergy status to other antibiotic agents; Z88.6 Allergy status to analgesic agent; Z88.8 Allergy status to other drugs, medicaments and biological substances
CPT/HCPCS: 99213; G0463

== ENCOUNTER 2018-07-01 16:13 | Emergency (ER) | payer OTHER ==
[2018-07-01 16:24] VITALS: BP 135/81
--- NOTE | 2018-07-01 17:05 | UC ---
Headache HPI - HPI Summary HPI Summary: Patient c/o recurrence of migraine headache which started yesterday. She states she was referred to [place] to Neurology for control of headaches but has them often and has tried many medications. States the only one that works is Fiorecet. She states she gets numbness on right jaw prior to these episodes. Photophobia positive, nausea positive, states she took a zofran prior to visit to . Patient has history of Budd Chiari malformation s/p surgery. - History Of Current Complaint Chief Complaint: UCGeneralIllness Stated Complaint: HEADACHE Time Seen by Provider: 07/01/18 16:22 Hx Obtained From: Patient Hx Last Menstrual Period: ON DEPO ?: No Onset/Duration: Sudden Onset, Lasting Hours Onset Of Symptoms: Sudden Currently Pain Is: Severe Pain Intensity: 7 Timing: Constant Character: Throbbing, Migraine Location of Headache: Diffuse Aggravating Factor(s): Bright Lights Allevating Factor(s): Medication Associated Signs And Symptoms: Positive: Nausea, Sinus Pressure - Risk Factors SAH Risk Factors: Negative Meningitis Risk Factors: Negative SDH Risk Factors: Negative Temporal Arteritis Risk Factors: Negative - Allergies/Home Medications Allergies/Adverse Reactions: Allergies Allergy/AdvReac Type Severity Reaction Status Date / Time Cephalosporins Allergy Unknown Shortness Verified 07/01/18 16:24 of Breath sulfamethoxazole Allergy Unknown BREATHING Verified 07/01/18 16:24 [From Bactrim] PROBLEM tramadol Allergy Unknown Hives Verified 07/01/18 16:24 trimethoprim [From Bactrim] Allergy Unknown BREATHING Verified 07/01/18 16:24 PROBLEM sumatriptan [From Imitrex] Allergy RASH AND Verified 07/01/18 16:[address] CONTRAST Allergy Unknown HIVES AND Uncoded 07/01/18 16:24 DIFFICULTY BREATHING Home Medications: Home Medications Aspirin/Acetaminophen/Caffeine [Excedrin Extra Strength Caplet] 1 each PO DAILY 07/01/18 [History Confirmed 07/01/18] Ondansetron TAB* [Zofran 4 MG Tab*] 4 mg PO Q6H PRN 07/01/18 [History Confirmed 07/01/18] Pseudoephedrine HCL ER TAB* [Sudafed 12 Hour*] 120 mg PO BID 07/01/18 [History Confirmed 07/01/18] PMH/Surg Hx/FS Hx/Imm Hx Previously Healthy: Yes Neurological History: Migraine, Other - paresthesias on fingers Other Neurological History: finger paresthesias Other History Of: Negative For: HIV, Hepatitis B, Hepatitis C, Anticoagulant Therapy - Surgical History Surgical History: Yes Surgery Procedure, Year, and Place: TONSILS; APPENDIX; CHIARI MALFORMATION DECOMPRESSION C1 - C2 LAMINECTOMY -JUNE 22 2014 DONE AT [facility]. CHIARI MALFORMATION DECOMPRESSION REPEAT 06/28/15, OP SITE OK FOR MRI SCAN PER DR JASSO BASED ON CT 10/26/16 - Family History Known Family History: Positive: Cardiac Disease - father-chf, Hypertension, Respiratory Disease - MOTHER COPD Family History: daughter - TURNER's - Social History Alcohol Use: None Substance Use Type: None Smoking Status (MU): Current Every Day Smoker Type: Cigarettes Amount Used/How Often: 1/2 PPD Length of Time of Smoking/Using Tobacco: Since Age 19 Have You Smoked in the Last Year: Yes When Did the Patient Quit Smoking/Using Tobacco: 2 years Household Exposure Type: Cigarettes - Immunization History Most Recent Influenza Vaccination: July 2016 Most Recent Tetanus Shot: 11/23/2010 Most Recent Pneumonia Vaccination: 11/23/2010 Review of Systems Neurological: Headache, Paresthesia All Other Systems Reviewed And Are Negative: Yes Physical Exam Triage Information Reviewed: Yes Appearance: Well-Appearing, No Pain Distress, Well-Nourished Vital Signs: Initial Vital Signs Temp 99.6 F 07/01/18 16:19 Pulse 107 07/01/18 16:19 Resp 16 07/01/18 16:19 BP 135/81 07/01/18 16:19 Pulse Ox 100 07/01/18 16:19 Vital Signs Reviewed: Yes Eyes: Positive: Conjunctiva Clear ENT: Positive: Hearing grossly normal, Pharynx normal, TMs normal Neck: Positive: Supple, Nontender, No Lymphadenopathy Respiratory: Positive: Chest non-tender, Lungs clear, Normal breath sounds Cardiovascular: Positive: RRR, No Murmur, Pulses Normal, Brisk Capillary Refill Abdomen Description: Positive: Nontender, No Organomegaly, Soft Bowel Sounds: Positive: Present Musculoskeletal: Positive: Strength Intact, ROM Intact, No Edema Neurological Exam: Normal, Other - CN II-XII intact, sensory decreased right jaw , cerebellar function intact, normal gait, FROMx4, strength 5/5x4. Headache Course/Dx - Course Course Of Treatment: fiorecet prescription given for 4 tablets, referred to [facility] to establish Pain Management. - Differential Dx/Diagnosis Provider Diagnoses: Migraine headaches. Chronic pain Discharge - Sign-Out/Discharge Documenting (check all that apply): Patient Departure, Post-Discharge Follow Up - Discharge Plan Condition: Stable Disposition: HOME Prescriptions: Butalb/Acetamin/Caff TAB* [Fioricet TAB*] 1 tab PO Q6H PRN 1 Days #4 tab MDD 4 PRN Reason: Pain Patient Education Materials: Pain Management (ED), Butalbital/Acetaminophen/ Caffeine (By mouth), Migraine Headache (ED) Referrals: No Primary Care Phys,NOPCP [Primary Care Provider] - [facility] [Outside] Additional Instructions: Call [facility] for referral to Pain Management - Billing Disposition and Condition Condition: STABLE Disposition: Home
== END 2018-07-01 17:17 | disposition home or self-care (01) ==
LOC: UCCORT 16:13
DX: G89.29 Other chronic pain (principal); G43.909 Migraine, unspecified, not intractable, without status migrainosus; Z88.1 Allergy status to other antibiotic agents; Z88.8 Allergy status to other drugs, medicaments and biological substances; Z87.891 Personal history of nicotine dependence
CPT/HCPCS: 99212; G0463

== ENCOUNTER 2018-08-11 11:31 | Emergency (ER) | payer OTHER ==
--- OUTSIDE RECORDS SUMMARY | 2018-08-11 12:19 | XMS REPORT ---
:1980 External Reference #:[id number] Author Organization [facility] Address [address] [place] [address] [address] [place] [address] Phone [phone] Care Team Providers Name Role Phone Patient's Choice Primary Care Physician Unavailable Payers Type Date Identification Numbers Payment Provider Subscriber Commercial Effective: Policy Number: [id number] Tristan Parmar Shahid 2017 Group Name: [id number] [address] PayID: [id number] [place] [address] Commercial Effective: 2014 Policy Number: [id number] Tristan Parmar Shahid Expires: 2017 Group Name: [id number] [address] PayID: [id number] [place] [address] Medigap Part B Effective: 2009 Policy Number: BS Facets Crystal Parmar Shahid [id number] Expires: 2012 PayID: [id number] [address] [address] [place] [address] Medigap Part B Expires: 2017 Policy Number: [id number] Medicaid Crystal P Shahid Group Name: 1 1 [address] PayID: [id number] [place] [address] Problems Date Description Provider Status Onset: 01/31/2012 Headache Anayeli Pringle M.D. Active Onset: 01/31/2012 Intrinsic asthma without status Anayeli Pringle M.D. Active asthmaticus Onset: 03/29/2012 Anxiety state Anayeli Pringle M.D. Active Onset: 02/07/2016 Other specified disorders of Romel Pagan M.D. Active Eustachian tube, right ear Onset: 02/07/2016 Otorrhea Romel Pagan M.D. Active Onset: 08/23/2015 Vascular headache Jeremiah Bazzi NP Active Onset: 01/23/2012 Giant cell arteritis Anayeli Pringle M.D. 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 Cigarette Use Light tobacco smoker (10 or fewer cigarettes/day) Cigars Never Smoked Cigars Pipe Never Smoked A Pipe Smokeless Tobacco Never Used Smokeless Tobacco ETOH Use Rarely consumes alcohol Smoking Patient is a current smoker, Smokes 1/2 pack a day smokes every day Recreational Drug Use Denies Drug Use Exercise Type/Frequency Exercises regularly General Hx Text smoke 1/2ppd x years, quit during walks daily lives at home with 6 kids and supportive boyfriend Allergies, Adverse Reactions, Alerts Date Description Reaction Status Severity Comments 01/23/2012 Robitussin Anaphylaxis active Severe 01/23/2012 Cephalosporins Anaphylaxis active Severe 01/23/2012 Altraim Anaphylaxis active Severe 01/23/2012 Imitrex anxiety reaction active Moderate 12/18/2014 Bactrim Urticaria active Moderate to Severe 05/31/2015 CT Contrast active Moderate to Hives over Severe whole body 06/11/2015 tylenol w/ codeine itching inactive Medications Medication Date Status Form Strength Qnty SIG Indications Ordering Provider Amitriptyline 08/08 Active Tablets 25mg 30tab 1 tab by G89.4 Delfina HCL s mouth every Senner, DO day Singulair 08/08 Active Tablets 10mg 30tab 1 tab by J30.1 Delfina s mouth every Senner, DO day Butalbital/Burton 07/15 Active Capsules 50-325-40 48cap take one G43.009 Delfina taminophen/Caf /2018 mg s tablet two Senner, DO feine times a day as needed Paxil 07/15 Active Tablets 20mg 45tab 2 tabs by F41.1 Delfina s mouth every Senner, DO day Zofran Odt 05/20 Active Tablets 8mg 40tab one tablet F41.9 Kamlesh Allen /2014 Dispers s three times MD a day as needed nausea (following brain surgery) Zyrtec Allergy Active Tablets 10mg 1 by mouth Unknown every day prn Ventolin HFA Active Aerosol 108(90Bas 1unit 2 puffs by Zoey e) s mouth four Cotton, mcg/Act times a day M.D. as needed Neurontin Active Tablets 600mg 2 tabs by Unknown mouth three times a day mdd 6 CBD Oil Active 40Tab 1 cap daily Unknown THC Active 5mg Per 2 gtts every Unknown 0000 gtts night for sleep Vape Active 2-3 Unknown inhalations as needed Amitriptyline 07/15 Hx Tablets 50mg 30tab 1 cap every G89.4 Delfina HCL s day DO Foreign - 08/08 Propranolol 07/03 Hx Tablets 20mg 120ta 1 tab twice G43.009 Delfina HCL bs a day DO Foreign - 08/07 Fioricet 07/03 Hx Capsules 50-300-40 30cap 1 tab every G43.009 Delfina mg s 6 hours as DO Foreign - needed for 07/03 migraine Paxil 07/03 Hx Tablets 20mg 30tab 1.5 by mouth F41.1 Delfina s every day DO Foreign - 07/15 Butalbital/Burton 07/03 Hx Tablets 50-325-40 30tab 1 tab every G43.009 Kamlesh Allen taminophen/Caf mg s 6 hours as MD robert - needed for 07/15 migraine Nicotine 09/17 Hx Gum 2mg 330un one piece Jeremiah Polacrilex /2014 its every 1-2 Jluis [employer] TE[employer]ER Starter Kit - hours 02/05 Zyban 08/30 Hx Tablets ER 150mg 60tab One tablet Jeremiah 12HR s once daily x RADHA Bazzi - 3 days then 05/29 increase to one tablet every 12 hours. Nicotrol 08/30 Hx Inhaler 10mg 168un one Jeremiah its cartridge RADHA Bazzi - 6-16 times 02/05 Oxycodone HCL 08/04 Hx Tablets 5mg 84tab 1 by mouth 6 Zoey /2015 s times daily Cotton, - x 1 week; M.D. 08/27 then 1 by mouth 4 times daily x 1 week, then 1 by mouth 2 times daily x 1 week then off. Propranolol 07/28 Hx Tablets 10mg 60tab 1PO Q6H prn Zoey s palpitations Cotton, - / anxiety M.D. 07/28 MDD Carisoprodol 07/22 Hx Tablets 350mg 120ta 1 by mouth bs 3-4 times a RADHA Bazzi - day as 05/29 needed Oxycodone HCL 07/22 Hx Tablets 10mg 63tab 1 by mouth 5 s times daily Cotton, - for 1 week, M.D. 08/04 then 4 tabs daily for 1 week Compazine 07/19 Hx Tablets 10mg 60tab 1 tablet 3-4 s times daily, RADHA Bazzi - prn- nausea 07/21 Carisoprodol 05/27 Hx Tablets 350mg 60tab 1 by mouth 723.1 s 3-4 times a Cotton, - day as M.D. 07/21 needed Propranolol 05/27 Hx Tablets 10mg 60tab 1PO Q6H prn 300.00 Zoey HCL s palpitations Cotton, - / anxiety M.D. 07/21 Neurontin 05/20 Hx Tablets 600mg 180ta 2 tablets 300.00 bs three times Cotton, - a day M.D. 07/02 Hydroxyzine 05/20 Hx Capsules 50mg 30cap 1 by mouth 300.00 Jeremiah Pamoate s qid as RADHA Bazzi - needed for 05/31 anxiety Escitalopram 05/20 Hx Tablets 10mg 30tab 1 tab daily 300.00 Jeremiah Oxalate s RADHA Bazzi - 02/05 Promethazine-C 04/12 Hx Syrup 6.25-10mg 473ml 5 Jeremiah odeine /2014 /5ML milliliters Jluis [employer] - every 4-6 05/23 hours for cough Levofloxacin 04/12 Hx Tablets 500mg 10tab one by mouth s daily for 10 Jluis, [employer]ER - days 04/22 Prednisone 04/12 Hx Tablets 10mg 30tab take 6 tabs Jeremiah s daily x 1 Jluis, [employer] TE[employer]ER - day then 5 04/30 tab daily 1 days, then 4 tab daily for 2 day, and 3 tab for 2 day, 2 tab or 2 days Doxycycline 04/06 Hx Capsules 100mg 20cap one tablet Jeremiah Hyclate s twice daily Jluis, [employer] TE[employer]ER - for 10 days. 04/12 Promethazine-D 04/06 Hx Syrup 6.25-15mg 118ml take 5ml Jeremiah /5ML every 4-6 Jluis, [employer] TE[employer]ER - hours as 04/12 needed for cough. Fluticasone 04/06 Hx Suspension 50mcg/Act 16gm 2 sprays Jeremiah Propionate each nostril Jluis, [employer] TE[employer]ER - every day 07/21 for 2 weeks. Antivert 01/25 Hx Tablets 25mg 30tab 1 every 6 s hours as Jluis [employer] - needed 03/26 dizziness Oxycodone HCL 01/25 Hx Capsules 5mg 59cap 2 tablets 784.0 Jeremiah s 5xday x 1 Jluis [employer] - day; 1 01/25 tablet 5x for 7 days, 1 tablet 2xday for 7 days. Ondansetron 01/25 Hx Tablets 4mg 60tab dissolve one 300.00 Dispers s tablet Jluis, [employer]ER - orally every 05/20 8 hours needed for nausea. Oxycodone HCL 01/25 Hx Tablets 5mg 59tab take 2 784.0 s tablets Jluis [employer]ER - 5xday 1 day, 04/29 1tab 5xday days, 1 tab 2xday for 7 days Oxycodone HCL 01/12 Hx Tablets 10mg 1-2 by mouth 784.0 every 3-4 h Ferdinand - M.D. 01/12 Oxycodone HCL 01/12 Hx Tablets 10mg 115ta 1.5 tabs 5 784.0 Zoey bs times/day x Ferdinand - 7 days, then M.D. 01/25 1 tab times/day x 7 days, then 1/2 5 times/day x 7 days then 1/2 twice a day x 7 days t Carisoprodol 01/08 Hx Tablets 350mg 120ta 1 by mouth 338.4 bs four times a Cotton, - day as M.D. 03/26 needed Oxycodone HCL 01/08 Hx Tablets 5mg 180ta 4 tabs po 5 784.0 bs times daily Cotton, - for 1 week, M.D. 01/12 then 3 tabs po 5 times daily Trazodone HCL 01/01 Hx Tablets 50mg 60tab 2-3 tablets s at at [place], - bedtime as M.D. 07/22 needed Tizanidine HCL 12/28 Hx Tablets 2mg 90tab 1 tab three 338.4 s times a day RADHA Bazzi - 01/08 Oxycodone HCL 12/28 Hx Tablets 10mg 175ta 3 tabs by 784.0 Jeremiah bs mouth 5 Jluis, [employer]ER - times daily 01/08 for 1 week and then 2 tabs 5 times daily for a week Oxycodone HCL 12/22 Hx Tablets 10mg 175ta 3 tabs by 784.0 Jeremiah bs mouth 5 Jluis, [employer] TE[employer]ER - times daily 12/28 for 1 and then 2 tabs 5 times daily for a week No Active 05/06 Hx Unknown Medications - 12/18 Hydrocodone/Ac 07/19 Hx Tablets 7.5-325mg 12tab take 1 Anayeli etaminophen /2011 s tablet every Yary, - 4 hours as M.D. 05/06 needed for pain Hydrocodone/Ac 06/11 Hx Tablets 7.5-325mg 20tab take 1 Enzo etaminophen /2011 s tablet every Neeraj Florentino, - 6 hours as M.D.,FACP 07/16 needed for pain Hydrocodone 05/15 Hx Tablets 7.5-300mg 20tab take 1 Anayeli Bitartrate/Burton s tablet as Yary taminophen - needed for M.D. 06/11 severe pain every 6 hours Meclizine HCL 05/13 Hx Tablets 25mg 30tab 1 tablet 386.11 s daily every Pringle, - 12 hours as M.D. 05/27 needed for vertigo Oxycodone HCL 05/13 Hx Tablets 5mg 30tab 1 tablets 784.0 s every 6 Pringle, - hours as M.D. 07/12 needed for pain Citalopram 04/16 Hx Tablets 20mg 30tab 1 po qd 300.00 Anayeli Hydrobromide s Yary, - M.D. 05/06 Percocet 04/16 Hx Tablets 10-650mg 56tab take 1 784.0 s tablet every Pringle, - 6 hours as M.D. 05/13 needed for pain relief Ondansetron 04/16 Hx Tablets 4mg 30tab take 1-2 787.02 Anayeli HCL s tablets Pringle, - every 6 M.D. 04/16 hours needed Ondansetron 04/16 Hx Tablets 4mg 60tab Take 1-2 787.02 Anayeli Odt Dispers s tablets Pringle, - every 8hours M.D. 05/06 as needed for nausea Oxycodone HCL 03/29 Hx Tablets 5mg 30tab 1 tablets 784.0 s every 6 Pringle, - hours as M.D. 04/16 needed for pain Citalopram 03/29 Hx Tablets 10mg 30tab take 1 300.00 Anayeli s tablet daily Yary, - for 7 days, M.D. 04/16 increase to 2 tablets daily Clonazepam 03/29 Hx Tablets 0.5mg 42tab Take 1 300.00 s tablet twice Pringle, - daily as M.D. 05/06 Prednisone 03/22 Hx Tablets 10mg 30tab take 1tabs s daily Yary, - M.D. 09/06 Chantix 03/22 Hx Tablets 0.5mg X QS take as 305.1 Anayeli Starting 11 & 1 mg directed Wes Pringle - X M.D. 09/06 Oxycodone HCL 03/18 Hx Capsules 5mg 24cap 1 capsule 446.5 Anayeli s every 6 Pringle, - hours as .D. 03/29 needed for pain Fluticasone 03/18 Hx Suspension 50mcg/Act 1unit 2 sprays 466.0 s each nostril Cotton, - daily as M.D. 05/06 Azithromycin 03/12 Hx Tablets 250mg 6tabs 2 tabs po on 493.10 day 1; 1 tab Cotton, - po qd on .D. 03/18 days 2- Guaifenesin/Co 03/12 Hx Syrup 100-10mg/ 118ml 1-2 tsp po q 493.10 Zoey 5ML 4 h Ferdinand - .D. 03/18 Advair HFA 03/12 Hx Aerosol 45-21mcg/ 2unit 2 puffs bid 493.10 Act s Ferdinand, - M.D. 05/06 Cheratussin ac 02/22 Hx Syrup 100-10mg/ 200ml Take 10 ml 5ML by mouth Yary, - every 6 .D. 03/12 hours needed for cough Lisinopril 01/25 Hx Tablets 5mg 30tab take 1 401.9 s tablet Pringle, - orally once M.D. 02/07 a Oxycodone HCL 01/23 Hx Capsules 5mg 14cap 1 capsule 446.5 s every 6 Pringle, - hours as .D. 02/15 needed for pain Ventolin HFA Hx Aerosol 108(90Bas 18gm 2 puffs po Anayeli e) mcg/ac qid prn Chanel Pringle M.DBarbara 05/06 Zyrtec Allergy Hx Capsules 10mg 30cap 1 po qd prn Unknown / s - 05/06 Magnesium Hx Capsules 400mg 30cap po qd Unknown Oxide 0000 s - 05/06 Ketorolac Hx Tablets 10mg 20tab 1 tid prn Unknown Tromethamine s - 05/[address] 20mg 30cap Take 2 Anayeli /0000 s tablets Pringle, - twice daily M.D. 05/06 Implanon Hx Implant 68mg Unknown /0000 - 01/25 Prednisone Hx Tablets 20mg 90tab Take 25 mg 446.5 Unknown /0000 s daily - 03/18 Cozaar Hx Tablets 25mg 30tab 1 po qd Unknown /0000 s - 05/06 Hydrocodone/Ac Hx Tablets 5-500mg 20tab one or two Unknown etaminophen /0000 s po every 4 - - 6 hours prn 03/18 pain Topamax Hx Tablets 25mg 10tab 1 po x 1 Unknown /0000 s week then - increase to 03/18 50 mg /2011 Prednisone Hx Tablets 50mg 3tabs take 1/2 Unknown /0000 tablet daily - (25 mg) 03/22 Gabapentin Hx Tablets 600mg 300.00 Unknown /0000 - 05/20 Soma Hx Tablets 350mg 30tab two tabs by Unknown /0000 s mouth times - a day as 12/28 needed Oxycodone HCL Hx Tablets 20mg 6tabs take 2 every Unknown /0000 4 hours as - needed 12/22 Acetaminophen- Hx Solution 120-12mg/ take 10 Unknown Codeine /0000 5ML milliliters - by mouth 06/11 every to hours if needed for pain and Prednisone Hx Tablets 20mg take 3 Unknown /0000 tablets by - mouth once 06/16 daily for days Oxycodone HCL Hx Tablets 5mg 2 tabs every Unknown /0000 4-5 hrs prn - 07/22 Diazepam Hx Tablets 5mg 1 tab every Unknown /0000 6 hrs - 07/28 Clindamycin Hx Capsules 300mg Unknown HCL /0000 - 08/10 Fluticasone Hx Suspension 50mcg/Act prn Unknown Propionate /0000 - 07/02 Lyrica Hx Capsules 150mg take 1 Unknown /0000 capsule by - mouth twice 07/02 a day /2017 Oxycodone HCL Hx Tablets 5mg 1-2 by mouth Unknown /0000 four times a - day as 05/29 Sudafed 12 00/00 Hx Tablets ER 120mg 1 tab by Unknown Hour /0000 12HR mouth every - 12 hours as 07/02 Butalbital/Burton 0000 Hx Tablets 50-325-40 Take 1 Unknown taminophen/Caf /0000 mg Tablet Every feine - 6 Hours as 07/02 Amitriptyline 0000 Hx Tablets 50mg 1 pills by Unknown HCL /0000 mouth at - bedtime. 08/07 watch for /2017 excessive sleepiness Immunizations CPT Code Status Date Vaccine Lot # [id number] Given 08/23/2015 Influenza Virus Vaccine, Quadrivalent, Split, [id number] Preservative Free Vital Signs Date Vital Result Comment 08/08/2018 Weight 162.00 lb Heart Rate 100 /min BP Systolic 117 mmHg BP Diastolic 70 mmHg Respiratory Rate 16 /min Body Temperature 99.8 F Pain Level 1 O2 % BldC Oximetry 100 % 07/15/2018 Weight 159.00 lb Heart Rate 78 /min BP Systolic 131 mmHg BP Diastolic 84 mmHg BP Systolic Sitting 133 mmHg BP Diastolic Sitting 82 mmHg Respiratory Rate 16 /min Body Temperature 98.8 F Pain Level 3 headache O2 % BldC Oximetry 99 % 07/03/2018 Weight 153.00 lb Heart Rate 104 /min BP Systolic 126 mmHg BP Diastolic 82 mmHg O2 % BldC Oximetry 99 % 05/30/2017 Height 66 inches 5'6" Weight 139.00 lb Heart Rate 110 /min BP Systolic 126 mmHg BP Diastolic 76 mmHg Respiratory Rate 16 /min Pain Level 5 O2 % BldC Oximetry 97 % Ra BMI (Body Mass Index) 22.4 kg/m2 02/07/2016 Heart Rate 84 /min BP Systolic Sitting 122 mmHg BP Diastolic Sitting 70 mmHg 08/23/2015 Heart Rate 111 /min BP Systolic Sitting 111 mmHg BP Diastolic Sitting 73 mmHg Body Temperature 98.6 F 07/22/2015 Height 66 inches 5'6" Weight 136.00 lb Heart Rate 71 /min BP Systolic Sitting 120 mmHg BP Diastolic Sitting 62 mmHg Body Temperature 98.6 F BMI (Body Mass Index) 21.9 kg/m2 05/31/2015 Height 66 inches 5'6" Weight 146.00 lb Heart Rate 126 /min BP Systolic 128 mmHg BP Diastolic 80 mmHg Body Temperature 99.3 F BMI (Body Mass Index) 23.6 kg/m2 05/27/2015 Weight 142.50 lb Heart Rate 107 /min BP Systolic Sitting 130 mmHg BP Diastolic Sitting 85 mmHg Body Temperature 98.4 F 05/20/2015 Heart Rate 122 /min BP Systolic Sitting 120 mmHg BP Diastolic Sitting 85 mmHg 04/12/2015 Height 66 inches 5'6" Weight 138.00 lb Heart Rate 118 /min BP Systolic 135 mmHg BP Diastolic 79 mmHg Body Temperature 99.3 F O2 % BldC Oximetry 98 % BMI (Body Mass Index) 22.3 kg/m2 04/06/2015 Weight 136.00 lb Heart Rate 109 /min BP Systolic Sitting 139 mmHg BP Diastolic Sitting 77 mmHg Body Temperature 99.5 F O2 % BldC Oximetry 98 % 01/25/2015 Height 66 inches 5'6" Weight 130.00 lb Heart Rate 98 /min BP Systolic 120 mmHg BP Diastolic 80 mmHg BMI (Body Mass Index) 21.0 kg/m2 01/08/2015 Weight 130.50 lb Heart Rate 108 /min BP Systolic Sitting 130 mmHg BP Diastolic Sitting 72 mmHg Body Temperature 97.6 F 12/28/2014 Height 66 inches 5'6" Weight 130.00 lb Heart Rate 105 /min BP Systolic 131 mmHg BP Diastolic 72 mmHg BMI (Body Mass Index) 21.0 kg/m2 12/22/2014 Height 66 inches 5'6" Weight 128.00 lb Heart Rate 102 /min BP Systolic 136 mmHg BP Diastolic 81 mmHg Body Temperature 98.6 F BMI (Body Mass Index) 20.7 kg/m2 12/18/2014 Height 66 inches 5'6" Weight 134.00 lb Heart Rate 129 /min BP Systolic 145 mmHg BP Diastolic 90 mmHg Body Temperature 100.1 F BMI (Body Mass Index) 21.6 kg/m2 05/06/2014 Height 66 inches 5'6" Weight 159.00 lb Heart Rate 102 /min BP Systolic Sitting 126 mmHg BP Diastolic Sitting 72 mmHg BMI (Body Mass Index) 25.7 kg/m2 09/06/2012 Height 66 inches 5'6" Weight 153.00 lb Heart Rate 74 /min BP Systolic Sitting 122 mmHg BP Diastolic Sitting 78 mmHg BMI (Body Mass Index) 24.7 kg/m2 07/16/2012 Height 66 inches 5'6" Weight 160.00 lb Heart Rate 70 /min BP Systolic Sitting 100 mmHg BP Diastolic Sitting 70 mmHg BMI (Body Mass Index) 25.8 kg/m2 06/11/2012 Height 66 inches 5'6" Weight 161.00 lb Heart Rate 120 /min BP Systolic Sitting 144 mmHg BP Diastolic Sitting 70 mmHg BMI (Body Mass Index) 26.0 kg/m2 06/07/2012 Height 66 inches 5'6" Weight 157.00 lb Heart Rate 104 /min BP Systolic Sitting 146 mmHg BP Diastolic Sitting 78 mmHg BMI (Body Mass Index) 25.3 kg/m2 05/13/2012 Height 66 inches 5'6" Weight 157.50 lb Heart Rate 100 /min BP Systolic Sitting 130 mmHg BP Diastolic Sitting 60 mmHg Body Temperature 98.6 F BMI (Body Mass Index) 25.4 kg/m2 04/30/2012 Height 66 inches 5'6" Weight 163.00 lb Heart Rate 88 /min BP Systolic Sitting 128 mmHg BP Diastolic Sitting 74 mmHg BMI (Body Mass Index) 26.3 kg/m2 04/16/2012 Height 66 inches 5'6" Weight 157.00 lb Heart Rate 76 /min BP Systolic Sitting 128 mmHg BP Diastolic Sitting 78 mmHg Body Temperature 99.3 F BMI (Body Mass Index) 25.3 kg/m2 03/29/2012 Height 66 inches 5'6" Weight 162.00 lb Heart Rate 110 /min BP Systolic Sitting 130 mmHg BP Diastolic Sitting 80 mmHg BMI (Body Mass Index) 26.1 kg/m2 03/22/2012 Height 66 inches 5'6" Weight 162.00 lb Heart Rate 92 /min BP Systolic Sitting 146 mmHg BP Diastolic Sitting 64 mmHg BMI (Body Mass Index) 26.1 kg/m2 03/18/2012 Height 66 inches 5'6" Weight 163.00 lb Heart Rate 72 /min BP Systolic Sitting 126 mmHg BP Diastolic Sitting 66 mmHg Body Temperature 98.8 F BMI (Body Mass Index) 26.3 kg/m2 03/12/2012 Height 66 inches 5'6" Weight 167.00 lb Heart Rate 96 /min BP Systolic Sitting 120 mmHg BP Diastolic Sitting 74 mmHg BMI (Body Mass Index) 27.0 kg/m2 02/16/2012 Height 66 inches 5'6" Weight 162.50 lb Heart Rate 64 /min BP Systolic Sitting 146 mmHg repeat after 5 minutes rest 124/70 BP Diastolic Sitting 80 mmHg repeat after 5 minutes rest 124/70 BMI (Body Mass Index) 26.2 kg/m2 01/31/2012 Height 66 inches 5'6" Weight 161.00 lb Heart Rate 72 /min BP Systolic Sitting 124 mmHg BP Diastolic Sitting 76 mmHg BMI (Body Mass Index) 26.0 kg/m2 01/26/2012 Height 66 inches 5'6" Weight 163.00 lb Heart Rate 76 /min BP Systolic Sitting 138 mmHg BP Diastolic Sitting 80 mmHg BMI (Body Mass Index) 26.3 kg/m2 01/23/2012 Height 66 inches 5'6" Weight 162.00 lb Heart Rate 72 /min BP Systolic Sitting 138 mmHg BP Diastolic Sitting 86 mmHg BMI (Body Mass Index) 26.1 kg/m2 Results Test Date Test Result H/L Range Note Laboratory test finding 11/27/2015 HCG Qualitative Negative Negative Urinalysis Profile 11/27/2015 Urine Color Yellow Urine Appearance Clear Urine Specific [place] 1.008 Low 1.010-1.030 Urine pH 7.0 5-9 Urine Urobilinogen Negative Negative Urine Ketones Negative Negative Urine Protein Negative Negative Urine Leukocytes Negative Negative Urine Blood Negative Negative Urine Nitrite Negative Negative Urine Bilirubin Negative Negative Urine Glucose Negative Negative CBC Auto Diff 11/27/2015 White Blood Count 4.8 10^3/uL 3.5-10.8 Red Blood Count 4.81 10^6/uL 4.0-5.4 Hemoglobin 16.3 g/dL High 12.0-16.0 Hematocrit 48 % High 35-47 Mean Corpuscular Volume 99 fL High 80-97 Mean Corpuscular Hemoglobin 34 pg High 27-31 Mean Corpuscular HGB Conc 34 g/dL 31-36 Red Cell Distribution Width 13 % 10.5-15 Platelet Count 163 10^3/uL 150-450 Mean Platelet Volume 8 um3 7.4-10.4 Abs Neutrophils 2.3 10^3/uL 1.5-7.7 Abs Lymphocytes 1.7 10^3/uL 1.0-4.8 Abs Monocytes 0.3 10^3/uL 0-0.8 Abs Eosinophils 0.5 10^3/uL 0-0.6 Abs Basophils 0.1 10^3/uL 0-0.2 Abs Nucleated RBC 0 10^3/uL Granulocyte % 47.4 % 38-83 Lymphocyte % 34.8 % 25-47 Monocyte % 6.6 % 1-9 Eosinophil % 9.7 % High 0-6 Basophil % 1.5 % 0-2 Nucleated Red Blood Cells % 0.1 Comp Metabolic Panel 11/27/2015 Sodium 139 mmol/L 133-145 Potassium 3.5 mmol/L 3.5-5.0 Chloride 104 mmol/L 101-111 Co2 Carbon Dioxide 28 mmol/L 22-32 Anion Gap 7 mmol/L 2-11 Glucose 65 mg/dL Low 70-100 Blood Urea Nitrogen 14 mg/dL 6-24 Creatinine 0.69 mg/dL 0.51-0.95 BUN/Creatinine Ratio 20.3 High 8-20 Calcium 9.6 mg/dL 8.6-10.3 Total Protein 7.0 g/dL 6.4-8.9 Albumin 4.7 g/dL 3.2-5.2 Globulin 2.3 g/dL 2-4 Albumin/Globulin Ratio 2.0 1-3 Total Bilirubin 0.40 mg/dL 0.2-1.0 Alkaline Phosphatase 65 U/L 34-104 Alt 12 U/L 7-52 Ast 15 U/L 13-39 Egfr Non- 96.8 >60 Egfr 124.5 >60 1 Laboratory test finding 11/27/2015 C Reactive Protein < 1.00 mg/L < 5.00 2 Urinalysis Profile 05/31/2015 Urine Color Yellow Urine Appearance Cloudy Urine Specific [place] 1.015 1.010-1.030 Urine pH 6.0 5-9 Urine Urobilinogen Negative Negative Urine Ketones Negative Negative Urine Protein Negative Negative Urine Leukocytes Trace Negative Urine Blood Negative Negative Urine Nitrite Negative Negative Urine Bilirubin Negative Negative Urine Glucose Negative Negative Urine White Blood Cell Trace(0-5/hpf) Absent Urine Red Blood Cell Trace(0-2/hpf) Absent Urine Bacteria Absent Absent Urine Squamous Epithelial Cell Present Absent Urine Calcium Oxalate Cryst Present Absent Ua And Culture 05/31/2015 Urine Culture And SEE RESULT BELOW 3 Sensitivity Sensitivities Laboratory test 05/31/2015 Partial Thrombo Time 31.8 seconds 26.0-36.3 finding PTT Inr/Protime 05/31/2015 Inr 0.86 0.78-1.07 Comp Metabolic Panel 05/31/2015 Sodium 139 mmol/L 133-145 Potassium 4.2 mmol/L 3.5-5.0 Chloride 104 mmol/L 101-111 Co2 Carbon Dioxide 30 mmol/L 22-32 Anion Gap 5 mmol/L 2-11 Glucose 72 mg/dL 70-100 Blood Urea Nitrogen 15 mg/dL 6-24 Creatinine 0.70 mg/dL 0.51-0.95 BUN/Creatinine Ratio 21.4 High 8-20 Calcium 9.2 mg/dL 8.6-10.3 Total Protein 6.7 g/dL 6.4-8.9 Albumin 4.4 g/dL 3.2-5.2 Globulin 2.3 g/dL 2-4 Albumin/Globulin Ratio 1.9 1-3 Total Bilirubin 0.30 mg/dL 0.2-1.0 Alkaline Phosphatase 59 U/L 34-104 Alt 11 U/L 7-52 Ast 17 U/L 13-39 Egfr Non- 95.2 >60 Egfr 122.5 >60 4 CBC Auto Diff 05/31/2015 White Blood Count 6.7 10^3/uL 4.8-10.8 Red Blood Count 4.63 10^6/uL 4.0-5.4 Hemoglobin 15.5 g/dL 12.0-16.0 Hematocrit 46 % 35-47 Mean Corpuscular Volume 98 fL High 80-97 Mean Corpuscular Hemoglobin 34 pg High 27-31 Mean Corpuscular HGB Conc 34 g/dL 31-36 Red Cell Distribution Width 13 % 10.5-15 Platelet Count 149 10^3/uL Low 150-450 Mean Platelet Volume 9 um3 7.4-10.4 Abs Neutrophils 3.3 10^3/uL 1.5-7.7 Abs Lymphocytes 2.3 10^3/uL 1.0-4.8 Abs Monocytes 0.4 10^3/uL 0-0.8 Abs Eosinophils 0.6 10^3/uL 0-0.6 Abs Basophils 0.1 10^3/uL 0-0.2 Abs Nucleated RBC 0 10^3/uL Granulocyte % 50.2 % 38-83 Lymphocyte % 33.9 % 25-47 Monocyte % 6.7 % 1-9 Eosinophil % 8.4 % High 0-6 Basophil % 0.8 % 0-2 Nucleated Red Blood Cells % 0 Wound Culture/Sensi 10/06/2012 Wound/Misc Culture-Gram Stain (SEE NOTE) 5 Ua Routine 09/06/2012 Ua Specific [place] 1.000 Ua PH 8.5 Ua Color yellow Ua Appera clear Ua WBC neg Ua Protein neg Ua Glucose neg Ua Ketones neg Ua Bilirubin neg Ua Urobilinogen neg Ua Nitrite neg Ua Occult Blood neg Surgical Pathology 01/31/2012 Surgical <SEE 6 Pathology NOTE> Laboratory test 01/24/2012 C Reactive < 0.5 mg/dL Less Than finding Protein 0.5 Basic Metabolic 01/24/2012 Sodium 137 mmol/L 135-145 Panel Potassium 3.9 mmol/L 3.5-5.0 Chloride 99 mmol/L Low 101-111 Co2 (Carbon Dioxide) 28.0 mmol/L 22-32 Anion Gap 10.0 mmol/L 2-11 7 Glucose 72 mg/dL 70-100 BUN 12 mg/dL 6-24 Creatinine 0.5 mg/dL Low 0.50-1.40 One Over Creatinine 2.00 BUN/Creatinine Ratio 24.0 High 8-20 Calcium 9.5 mg/dL 8.1-9.9 eGFR Non- 143.0 > 60 eGFR 183.9 > 60 8 Laboratory test finding 01/24/2012 Erythrocyte Sed Rate 7 MM/HR 0-15 CBC Auto Diff 01/24/2012 White Blood Count 11.0 CUMM High 4.8-10.8 Red Cell Count 4.83 CUMM 4.2-5.4 Hemoglobin 16.2 g/dL High 12.0-16.0 Hematocrit 46 % 35-47 Mean Corpuscular Volume 96 um3 79-97 Mean Corpuscular Hemoglob 34 pg High 27-31 Mean Corpuscular HGB Cone 35 g/dL 32-36 Redcell Distribution WDTH 13 % 10.5-15 Platelet Count 194 CUMM 150-450 Mean Platelet Volume 9.8 um3 7.4-10.4 Gran % 64.6 % 38-83 Lymph % 25.7 % 25-47 Mononuclear % 6.7 % 1-9 Eosinophil % 2.1 % 0-6 Basophil % 0.9 % 0-2 Abs Lymphs 2.8 1.0-4.8 Abs Mononuclear 0.7 0-0.8 Absolute Neutrophil Count 7.1 1.5-7.7 Abs Eosinophils 0.2 0-0.6 Abs Basophils 0.1 0-0.2 1 Because ethnic data is not always readily available, this report includes an eGFR for both -Americans and non- Americans. The National Kidney Disease Education Program (NKDEP) does not endorse the use of the MDRD equation for patients that are not between the ages of 18 and 70, are , have extremes of body size, muscle mass, or nutritional status, or are non- or non-. According to the National Kidney Foundation, irrespective of diagnosis, the stage of the disease is based on the level of kidney function: Stage Description GFR(mL/min/1.73 m(2)) 1 Kidney damage with normal or decreased GFR 90 2 Kidney damage with mild decrease in GFR 60-89 3 Moderate decrease in GFR 30-59 4 Severe decrease in GFR 15-29 5 Kidney failure <15 (or dialysis) 2 Acute inflammation: >10.00 3 SEE RESULT BELOW Name: CRYSTAL KEY : [address]: Jeremiah Bazzi NP Acct: [id number] Unit: [id number] AGE: 34 Location: [facility] Re05/31/15 SEX: F Status: REG REF SPEC: [id number] MITCHEL: 05/31/[address]: Jeremiah Bazzi NP REQ: [id number] RECD: 05/31/15 STATUS: COMP _ SOURCE: URINE SPDESC: ORDERED: Urine Culture Urine Source: Random Procedure Result Verified Site Urine Culture Final 06/02/15- 915 ML Organism 1 NORMAL MATTHIAS [place] Count 10-25,000 (Moderate) CFU/ML * ML - MAIN LAB ([facility]) . END OF REPORT * ML=Testing performed at Main Lab DEPARTMENT OF PATHOLOGY, [address] [place] [address] Jus Hernandez M.D. Director [facility] # [id number] 4 Because ethnic data is not always readily available, this report includes an eGFR for both -Americans and non- Americans. The National Kidney Disease Education Program (NKDEP) does not endorse the use of the MDRD equation for patients that are not between the ages of 18 and 70, are , have extremes of body size, muscle mass, or nutritional status, or are non- or non-. According to the National Kidney Foundation, irrespective of diagnosis, the stage of the disease is based on the level of kidney function: Stage Description GFR(mL/min/1.73 m(2)) 1 Kidney damage with normal or decreased GFR 90 2 Kidney damage with mild decrease in GFR 60-89 3 Moderate decrease in GFR 30-59 4 Severe decrease in GFR 15-29 5 Kidney failure <15 (or dialysis) 5 RUN DATE: 10/09/12 [facility] LAB LIVE PAGE 1 RUN TIME: [address] [place], [place] [address] Specimen Inquiry Name: CRYSTAL KEY : [address]: Quang Castano MD Acct: [id number] Unit: [id number] AGE: 31 Location: [facility] Re10/06/12 SEX: F Status: DEP ER SPEC: [id number] MITCHEL: 10/06/[address] [facility] [address]: Quang Castano MD REQ: [id number] RECD: 10/07/12 STATUS: GEOVANNA OLIVAS DR: Anayeli Pringle MD _ SOURCE: JEANE PADGETT [facility]: ORDERED: Culture Stain Procedure Result Verified Site Wound/Misc Gram Stain Final 10/07/12- 1537 ML 3+ Polys 1+ Gram Positive Cocci Wound/Misc Culture Final 10/09/12- 1050 ML Organism 1 STAPHYLOCOCCUS AUREUS Quantity 3+ 1. STAPHYLOCOCCUS AUREUS M.I.C. RX --------- ------ Penicillin >=0.5 R Ciprofloxacin <=0.5 S Clindamycin <=0.25 S Erythromycin <=0.25 S Gentamicin <=0.5 S Levofloxacin 0.25 S Linezolid 2 S * Moxifloxacin <=0.25 S Nitrofurantoin <=16 S Oxacillin 0.5 S * Quinupristin/Dalfopristin 0.5 S Rifampin <=0.5 S Tetracycline <=1 S Doxycycline - Deduced S * Minocycline - Deduced S Tigecycline <=0.12 S Trimethoprim/Sulfamethoxazole <=10 S Vancomycin 1 S CONTINUED ON NEXT PAGE * ML=Testing performed at Main Lab DEPARTMENT OF PATHOLOGY, [facility] [employer] [place], [place] [address] Jus Hernandez M.D. Director [facility] Permit #[id number] RUN DATE: 10/09/12 [facility] LAB LIVE PAGE 2 RUN TIME: 1050 [facility] [employer] [place], [place] [address] Specimen Inquiry Patient: CRYSTAL KEY [id number] (Continued) Specimen: [id number] Collected: 10/06/12 Received: 10/07/12 (Continued) Procedure Result Verified Site Wound/Misc Culture Final (continued) 10/09/12- 1049 1. STAPHYLOCOCCUS AUREUS (continued) M.I.C. RX --------- ------ Imipenem-Deduced S Ampicillin/Sulbactam-Deduced S Cefazolin-Deduced S * These antibiotics are not available in the [facility] Formulary Contact the Microbiology Department for any additional antibiotic reporting. END OF REPORT * ML=Testing performed at Main Lab DEPARTMENT OF PATHOLOGY, [address] [place] [address] Jus Hernandez M.D. [facility] Permit #[id number] --- RUN DATE: 02/02/12 [facility] NMI LIVE PAGE 1 RUN TIME: 153 Specimen Inquiry RUN USER: INTERFACE -- Name: CRYSTAL KEY Status: REG REF Re01/31/12 Age/Sex: 31/F Unit#: [id number] [facility] [birth year] -- Specimen: [id number] SOUT Spec Date:01/31/12- [facility] Dr: Dmitry Lopez ed, MD Spec Type: SURGICAL P Received:02/01/12 Copies to: Zackery Pringle MD SPECIMEN LEFT TEMPORAL ARTERY BIOPSY HISTORY CLINICAL INFORMATION: Headache, vision loss GROSS DESCRIPTION The specimen is received in formalin labelled [place], Left Temporal Artery Biopsy, and consists of a cylindrical fragment of pink tissue measuring 1.4 x 0.2 x 0.2 cm. The specimen is serially sectioned and submitted entirely in one cassette. DIAGNOSIS Temporal artery, left, biopsy: Muscular arterial wall with patent lumen and no evidence of arteritis or atherosclerosis. Signed Electronically by: SUKUMAR UMAÑA 02/02/12 1536 -- -- DEPARTMENT OF PATHOLOGY, [address] [place] [address] [facility] Permit #[id number] Jus Hernandez M.D. Director Sukumar Umaña M.D. [employer] Installer Dir maryse -- 7 Anion gap measurement may be of limited value in the presence of any alkalosis, especially in a combined acid base disorder. . 8 Because ethnic data is not always readily available, this report includes an eGFR for both -Americans and non- Americans. The National Kidney Disease Education Program (NKDEP) does not endorse the use of the MDRD equation for patients that are not between the ages of 18 and 70, are , have extremes of body size, muscle mass, or nutritional status, or are non- or non-. According to the National Kidney Foundation, irrespective of diagnosis, the stage of the disease is based on the level of kidney function: Stage Description GFR(mL/min/1.73 m(2)) 1 Kidney damage with normal or decreased GFR 90 2 Kidney damage with mild decrease in GFR 60-89 3 Moderate decrease in GFR 30-59 4 Severe decrease in GFR 15-29 5 Kidney failure <15 (or dialysis) Procedures Date CPT Code Description Status 02/07/2016 61132 Tympanometry Completed 03/15/2012 Diabetic Retinal Eye Exam Completed Encounters Type Date Location Provider CPT E/M Dx Office Visit 07/15/2018 [facility] [place] [address] G43.009 8:30a [facility] G89.4 F41.1 E05.80 Office Visit 07/03/2018 8:30a [facility] [place] [address] G89.4 Of [facility] G43.009 Z72.0 F41.1 Office Visit 05/30/2017 3:00p Orthopedic Services Clint Anderson [address] S93.402A [facility] 02/07/2016 1:30p ENT Services Grant Urena 10991 H69.81 C.M.ABarbara AT [place] Azar Pagan H92.10 Office Visit 08/23/2015 10:40a [facility] Internal [place] [address] G44.1 Goyo R11.0 Z72.0 V04.81 Z23 Office Visit 07/22/2015 1:00p [facility] Internal Medicine Zoey Streeter 14603 784.0 - Goyo Askew 787.02 Office Visit 05/31/2015 1:00p [facility] [place] [address] V72.84 Goyo 784.0 305.1 493.10 Office Visit 05/27/2015 8:40a [facility] Internal Medicine Zoey Streeter 95077 300.00 - Goyo Askew 723.1 Office Visit 05/20/2015 1:00p [facility] [place] [address] 300.00 [place] Office Visit 04/12/2015 10:20a [facility] [place] [address] 786.2 [place] 466.0 Office Visit 04/06/2015 1:00p [facility] [place] [address] 461.8 - [place] Office Visit 01/25/2015 10:00a [facility] [place] [address] 338.4 - [place] Office Visit 01/08/2015 11:00a [facility] Internal Medicine Zoey Streeter 76240 338.4 - [place] M.DBarbara Office Visit 12/28/2014 1:30p [facility] [place] [address] 784.0 - [place] Office Visit 12/22/2014 9:40a [facility] Internal Medicine Zoey Streeter 29453 784.0 - [place] M.DBarbara Office Visit 12/18/2014 10:15a [facility] Alejandro Ramierz, 88520 338.4 Services Of [facility] Azar 723.1 784.0 Office Visit 12/18/2014 8:50a [facility] Karthik Rahman, 27801 784.0 Assoc, Hospitalists Azar Office Visit 12/18/2014 1:00p [facility] [place] [address] 784.0 - [place] Office Visit 12/17/2014 8:50a [facility] [address] M.D. 48916 784.0 Assoc,pc Hospitalists Office Visit 05/06/2014 1:00p Neurosurgery Services Alejandro Farah M.D. 09397 348.4 Of [facility] Office Visit 09/06/2012 1:40p [facility] Internal Medicine Anayeli Pringle M.D. 08742 593.89 - [place] Office Visit 07/16/2012 10:50a [facility] Internal Medicine Mikala Fajardo 58899 723.1 - [place] M.DBarbara Office Visit 06/11/2012 9:40a [facility] Internal Medicine Anayeli Pringle M.D. 62019 300.00 - [place] 784.0 305.1 Office Visit 06/07/2012 4:00p [facility] Internal Medicine Anayeli Pringle M.D. 43716 782.3 - [place] Office Visit 05/13/2012 10:00a [facility] Internal Medicine Senia Paredes N.P. 23308 386.11 - [place] 784.0 Office Visit 04/30/2012 10:40a [facility] Internal Medicine - Anayeli Pringle M.D. 26588 784.0 [place] 300.00 305.1 401.9 473.8 Office Visit 04/16/2012 1:00p [facility] Internal Medicine - Anayeli Pringle M.D. 87374 784.0 [place] 300.00 535.40 787.02 Office Visit 03/29/2012 3:40p [facility] Internal Medicine - Anayeli Pringle M.D. 71089 300.00 [place] Office Visit 03/22/2012 3:00p [facility] Internal Medicine Anayeli Pringle M.D. 59937 305.1 [place] 401.9 784.0 473.8 Office Visit 03/18/2012 11:20a [facility] Internal Medicine Senia Paredes, N.P. 73967 466.0 - [place] 784.0 Office Visit 03/12/2012 9:40a [facility] Internal Medicine Zoey Streeter 28293 493.10 - Goyo Askew 724.1 246.9 Office Visit 02/16/2012 12:40p [facility] Internal Medicine Anayeli Pringle M.D. 70518 401.9 [place] Office Visit 01/31/2012 1:40p [facility] Internal Medicine Anayeli Pringle M.D. 74331 446.5 [place] 784.0 493.10 Office Visit 01/26/2012 11:40a [facility] Internal Medicine Anayeli Pringle M.D. 31880 401.9 [place] 446.5 784.0 535.40 Office Visit 01/23/2012 3:20p [facility] Internal Medicine Chanel Pringle M.D. 62185 784.0 [place] 446.5 401.9 Plan of Care Future Appointment(s):08/29/2018 9:30 am - Delfina Carrasquillo DO [facility]08/08/2018 - Delfina Carrasquillo, J30.1 Allergic rhinitis due to pollenNew Medication:Singulair 10 mgG89.4 Chronic pain syndromeNew Medication:Amitriptyline HCL 25 mgG43.009 Migraine w/o aura, not intractable, w/ o status migrainosusFollow up:Come back in 3 weeks
--- OUTSIDE RECORDS SUMMARY | 2018-08-11 12:20 | XMS REPORT ---
:1980 External Reference #:[id number] Author Organization [facility] Address [address] [place] [address] [address] [place] [address] Phone [phone] Care Team Providers Name Role Phone Patient's Choice Primary Care Physician Unavailable Payers Type Date Identification Numbers Payment Provider Subscriber Commercial Effective: Policy Number: [id number] [place] Parmar Shahid 2017 Group Name: [id number] [address] PayID: [id number] [place] [address] Commercial Effective: 2014 Policy Number: [id number] [place]istan Parmar Shahid Expires: 2017 Group Name: [id number] [address] PayID: [id number] [place] [address] Medigap Part B Effective: 2009 Policy Number: BS Facets Crystal Parmar Shahid [id number] Expires: 2012 PayID: [id number] [address] [address] [place] [address] Medigap Part B Expires: 2017 Policy Number: [id number] Medicaid Crystal P Shahid Group Name: 1 1 [address] PayID: [id number] [place] [address] Problems Date Description Provider Status Onset: 01/31/2012 [...] Strength Qnty SIG Indications Ordering Provider Amitriptyline 07/15 Active Tablets 50mg 30tab 1 cap every G89.4 Delfina HCL /2017 s day Senner, DO Butalbital/Burton 07/15 Active Capsules 50-325-40 48cap Take one G43.009 Delfina taminophen/Caf /2018 mg s tablet three Senner, DO feine times a day as needed Propranolol 07/03 Active Tablets 20mg 120ta 1 tab twice G43.009 Delfina HCL /2018 bs a day Senner, DO Zofran Odt 05/20 Active Tablets 8mg 40tab one tablet F41.9 Kamlesh Allen, Dispers s three times MD a day as needed nausea (following brain surgery) Zyrtec Allergy Active Tablets 10mg 1 by mouth Unknown /0000 every day prn Ventolin HFA Active Aerosol 108(90Bas 1unit 2 puffs by Zoey /0000 e) s mouth four Cotton, mcg/Act times a day M.D. as needed Neurontin Active Tablets 600mg 2 tabs by Unknown /0000 mouth three times a day mdd 6 Amitriptyline Active Tablets 50mg 1 pills by Unknown HCL /0000 mouth at bedtime. watch for excessive sleepiness Fioricet 07/03 Hx Capsules 50-300-40 30cap 1 tab every G43.009 Delfina mg s 6 hours as DO Foreign - needed for 07/03 migraine Paxil 07/03 Hx Tablets 20mg 30tab 1.5 by mouth F41.1 Deflina s every day Foreign DO - 07/15 Butalbital/Burton 07/03 Hx Tablets 50-325-40 30tab 1 tab every G43.009 Kamlesh Allen, taminophen/ mg s 6 hours as MD robert - needed for 07/15 Nicotine 09/17 Hx Gum 2mg 330un one piece Jeremiah Polacrilex its every 1-2 RADHA Bazzi Starter Kit - hours 02/05 Zyban 08/30 Hx Tablets ER 150mg 60tab One tablet 12HR s once daily x RADHA Bazzi - 3 days then 05/29 increase to one tablet every 12 hours. Nicotrol 08/30 Hx Inhaler 10mg 168un one its cartridge RADHA Bazzi - 6-16 times 02/05 Oxycodone HCL 08/04 Hx Tablets 5mg 84tab 1 by mouth 6 s times daily Cotton, - x 1 week; M.D. 08/27 then 1 by mouth 4 times daily x 1 week, then 1 by mouth 2 times daily x 1 week then off. Propranolol 07/28 Hx Tablets 10mg 60tab 1PO Q6H prn s palpitations Cotton, - / anxiety M.D. 07/28 MDD Carisoprodol 07/22 Hx Tablets 350mg 120ta 1 by mouth bs 3-4 times a Jluis [employer] OFFICER - day as 05/29 needed Oxycodone HCL 07/22 Hx Tablets 10mg 63tab 1 by mouth 5 Zoey s times daily Cotton, - for 1 week, M.D. 08/04 then 4 tabs daily for 1 week Compazine 07/19 Hx Tablets 10mg 60tab 1 tablet 3-4 Jeremiah s times daily, RADHA Bazzi - prn- nausea 07/21 Carisoprodol 05/27 Hx Tablets 350mg 60tab 1 by mouth 723.1 Zoey /2015 s 3-4 times a Cotton, - day as M.D. 07/21 needed /2014 Propranolol 05/27 Hx Tablets 10mg 60tab 1PO Q6H prn 300.00 Zoey HCL s palpitations Cotton, - / anxiety M.D. 07/21 Neurontin 05/20 Hx Tablets 600mg 180ta 2 tablets 300.00 Zoey bs three times Cotton, - a day M.D. 07/02 Hydroxyzine 05/20 Hx Capsules 50mg 30cap 1 by mouth 300.00 Jeremiah Pamoate s qid as Jluis [employer] OFFICER - needed for 05/31 anxiety Escitalopram 05/20 Hx Tablets 10mg 30tab 1 tab daily 300.00 Jeremiah Oxalate s RADHA Bazzi - 02/05 Promethazine-C 04/12 Hx Syrup 6.25-10mg 473ml 5 Jeremiah odeine /2014 /5ML milliliters RADHA Bazzi - every 4-6 04/17 hours for cough Levofloxacin 04/12 Hx Tablets 500mg 10tab one by mouth Jeremiah s daily for 10 Jluis [employer] OFFICER - days 04/22 Prednisone 04/12 Hx Tablets 10mg 30tab take 6 tabs Jeremiah s daily x 1 Jluis [employer] OFFICER - day then 5 04/30 tab daily x 1 days, then 4 tab daily for 2 day, and 3 tab for 2 day, 2 tab or 2 days Doxycycline 04/06 Hx Capsules 100mg 20cap one tablet Jeremiah Hyclate s twice daily RADHA Bazzi - for 10 days. 04/12 Promethazine-D 04/06 Hx Syrup 6.25-15mg 118ml take 5ml Jeremiah M /5ML every 4-6 Jluis [employer] OFFICER - hours as 04/12 needed for cough. Fluticasone 04/06 Hx Suspension 50mcg/Act 16gm 2 sprays Jeremiah each nostril Jluis [employer] OFFICER - every day 07/21 for 2 weeks. Antivert 01/25 Hx Tablets 25mg 30tab 1 every 6 s hours as Jluis [employer] OFFICER - needed 03/26 dizziness Oxycodone HCL 01/25 Hx Capsules 5mg 59cap 2 tablets 784.0 s 5xday x 1 Jluis [employer] OFFICER - day; 1 01/25 tablet 5x for 7 days, 1 tablet 2xday for 7 days. Ondansetron 01/25 Hx Tablets 4mg 60tab dissolve one 300.00 Dispers s tablet Jluis [employer] OFFICER - orally every 05/20 8 hours needed for nausea. Oxycodone HCL 01/25 Hx Tablets 5mg 59tab take 2 784.0 s tablets RADHA Bazzi - 5xday 1 day, 04/29 1tab 5xday days, 1 tab 2xday for 7 days Oxycodone HCL 01/12 Hx Tablets 10mg 1-2 by mouth 784.0 every 3-4 h Ferdinand, - M.D. 01/12 Oxycodone HCL 01/12 Hx Tablets 10mg 115ta 1.5 tabs 5 784.0 bs times/day x Cotton, - 7 days, then M.D. 01/25 1 tab times/day x 7 days, then 1/2 5 times/day x 7 days then 1/2 twice a day x 7 days t Carisoprodol 01/08 Hx Tablets 350mg 120ta 1 by mouth 338.4 Zoey bs four times a Cotton, - day as M.D. 03/26 needed Oxycodone HCL 01/08 Hx Tablets 5mg 180ta 4 tabs po 5 784.0 bs times daily Ferdinand, - for 1 week, M.D. 01/12 then 3 tabs /2014 po 5 times daily Trazodone HCL 01/01 Hx Tablets 50mg 60tab 2-3 tablets Zoey s at at [place], - bedtime as M.D. 07/22 needed Tizanidine HCL 12/28 Hx Tablets 2mg 90tab 1 tab three 338.4 s times a day Jluis, [employer]ATIONS OFFICER - 01/08 Oxycodone HCL 12/28 Hx Tablets 10mg 175ta 3 tabs by 784.0 bs mouth 5 Jluis, COM[employer]ATIONS OFFICER - times daily 01/08 for 1 week and then 2 tabs 5 times daily for a week Oxycodone HCL 12/22 Hx Tablets 10mg 175ta 3 tabs by 784.0 bs mouth 5 Jluis, COM[employer]ATIONS OFFICER - times daily 12/28 for 1 week and then 2 tabs 5 times daily for a week No Active 05/06 Hx Unknown Medications - 12/18 Hydrocodone/Ac 07/19 Hx Tablets 7.5-325mg 12tab take 1 Anayeli etaminophen s tablet every Pringle, - 4 hours as M.D. 05/06 needed for pain Hydrocodone/Ac 06/11 Hx Tablets 7.5-325mg 20tab take 1 Enzo etaminophen s tablet every Neeraj Florentino, - 6 hours as M.D.,FACP 07/16 needed for pain Hydrocodone 05/15 Hx Tablets 7.5-300mg 20tab take 1 Anayeli Bitartrate/Burton s tablet as Yary taminophen - needed for M.D. 06/11 severe pain every 6 hours Meclizine HCL 05/13 Hx Tablets 25mg 30tab 1 tablet 386.11 Anayeli s daily every Pringle, - 12 hours as M.D. 05/27 needed for vertigo Oxycodone HCL 05/13 Hx Tablets 5mg 30tab 1 tablets 784.0 Anayeli s every 6 Pringle, - hours as M.D. 07/12 needed for pain Citalopram 04/16 Hx Tablets 20mg 30tab 1 po qd 300.00 Anayeli Hydrobromide s Yary, - M.D. 05/06 Percocet 04/16 Hx Tablets 10-650mg 56tab take 1 784.0 Anayeli /2012 s tablet every Pringle, - 6 hours as M.D. 05/13 needed for pain relief Ondansetron 04/16 Hx Tablets 4mg 30tab take 1-2 787.02 Anayeli HCL s tablets Pringle, - every 6 M.D. 04/16 hours as needed Ondansetron 04/16 Hx Tablets 4mg 60tab Take 1-2 787.02 Anayeli Odt Dispers s tablets Pringle, - every 8hours M.D. 05/06 as needed for nausea Oxycodone HCL 03/29 Hx Tablets 5mg 30tab 1 tablets 784.0 s every 6 Pringle, - hours as M.D. 04/16 needed for pain Citalopram 03/29 Hx Tablets 10mg 30tab take 1 300.00 Anayeli Hydrobromide s tablet daily Yary, - for 7 days, M.D. 04/16 then increase to 2 tablets daily Clonazepam 03/29 Hx Tablets 0.5mg 42tab Take 1 300.00 s tablet twice Pringle, - daily as M.D. 05/06 needed Prednisone 03/22 Hx Tablets 10mg 30tab take 1tabs s daily Yary, - M.D. 09/06 Chantix 03/22 Hx Tablets 0.5mg X QS take as 305.1 Anayeli Starting 11 & 1 mg directed Wes Pringle - X M.D. 09/06 Oxycodone HCL 03/18 Hx Capsules 5mg 24cap 1 capsule 446.5 s every 6 Pringle, - hours as M.D. 03/29 needed for pain Fluticasone 03/18 Hx Suspension 50mcg/Act 1unit 2 sprays 466.0 s each nostril Cotton, - daily as M.D. 05/06 needed Azithromycin 03/12 Hx Tablets 250mg 6tabs 2 tabs po on 493.10 day 1; 1 tab Cotton, - po qd on M.D. 03/18 days 2- Guaifenesin/Co 03/12 Hx Syrup 100-10mg/ 118ml 1-2 tsp po q 493.10 Zoey 5ML 4 h Chanel Streeter M.D. 03/18 Advair HFA 03/12 Hx Aerosol 45-21mcg/ 2unit 2 puffs bid 493.10 Act s Chanel Streeter M.D. 05/06 Cheratussin ac 02/22 Hx Syrup 100-10mg/ 200ml Take 10 ml 5ML by mouth Yary, - every 6 M.D. 03/12 hours needed for cough Lisinopril 01/25 Hx Tablets 5mg 30tab take 1 401.9 Anayeli s tablet Yary, - orally once M.D. 02/07 a day Oxycodone HCL 01/23 Hx Capsules 5mg 14cap 1 capsule 446.5 s every 6 Yary, - hours as M.DBarbara 02/15 needed for pain Ventolin HFA Hx Aerosol 108(90Bas 18gm 2 puffs po Anayeli / e) mcg/ac qid prn Chanel Pringle M.D. 05/06 Zyrtec Allergy Hx Capsules 10mg 30cap 1 po qd prn Unknown / s - 05/06 Magnesium Hx Capsules 400mg 30cap po qd Unknown Oxide / s - 05/06 Ketorolac Hx Tablets 10mg 20tab 1 tid prn Unknown Tromethamine / s - 05/[address] 20mg 30cap Take 2 Anayeli s tablets Yary, - twice daily M.D. 05/06 Implanon Hx Implant 68mg Unknown /0000 - 01/25 Prednisone Hx Tablets 20mg 90tab Take 25 mg 446.5 Unknown /0000 s daily - 03/18 Cozaar Hx Tablets 25mg 30tab 1 po qd Unknown / s - 05/06 Hydrocodone/Ac Hx Tablets 5-500mg 20tab one or two Unknown etaminophen /0000 s po every 4 - - 6 hours prn 03/18 pain /2011 Topamax Hx Tablets 25mg 10tab 1 po x 1 Unknown /0000 s week then - increase to 03/18 50 mg /2011 Prednisone Hx Tablets 50mg 3tabs take 1/2 Unknown /0000 tablet daily - (25 mg) 03/22 Gabapentin Hx Tablets 600mg 300.00 Unknown /0000 - 05/20 Soma Hx Tablets 350mg 30tab two tabs by Unknown /0000 s mouth times - a day as 12/28 Oxycodone HCL Hx Tablets 20mg 6tabs take 2 every Unknown /0000 4 hours as - needed 12/22 Acetaminophen- Hx Solution 120-12mg/ take 10 Unknown Codeine /0000 5ML milliliters - by mouth 06/11 every 4 to hours if needed for pain and [...] a - day as 05/29 Sudafed 12 Hx Tablets ER 120mg 1 tab by Unknown Hour /0000 12HR mouth every - 12 hours as 07/02 Butalbital/Burton 00 Hx Tablets 50-325-40 Take 1 Unknown taminophen/Caf /0000 mg Tablet Every feine - 6 Hours as 07/02 Immunizations CPT Code Status Date Vaccine Lot # [id number] Given 08/23/2015 Influenza Virus Vaccine, Quadrivalent, Split, [id number] Preservative Free Vital Signs Date Vital Result Comment 07/15/2018 Weight 159.00 lb Heart Rate 78 [...] Color Yellow Urine Appearance Clear Urine Specific Minong 1.008 Low 1.010-1.030 Urine pH 7.0 5-9 [...] Color Yellow Urine Appearance Cloudy Urine Specific Minong 1.015 1.010-1.030 Urine pH 6.0 5-9 Urine [...] NOTE) 5 Ua Routine 09/06/2012 Ua Specific Minong 1.000 Ua PH 8.5 Ua Color yellow [...] [address]: Jeremiah Bazzi NP Acct: [id number] Unit: [id number] AGE: 34 Location: [facility] Re05/31/15 SEX: F Status: REG REF SPEC: [id number] MITCHEL: 05/31/[address]: Jeremiah Bazzi NP REQ: [id number] RECD: 05/31/15 STATUS: COMP _ SOURCE: URINE SPDESC: ORDERED: Urine Culture Urine Source: Random Procedure Result Verified Site Urine Culture Final 06/02/15- 915 ML Organism 1 NORMAL MATTHIAS Moore Count 10-25,000 (Moderate) CFU/ML * ML - MAIN LAB ([facility]) . END OF REPORT * ML=Testing performed at Main Lab DEPARTMENT OF PATHOLOGY, [facility] [place] [address] Jus Hernandez M.D. Director [facility] # [id number] Because ethnic data is not always [...] <15 (or dialysis) 5 RUN DATE: 10/09/12 [facility] LAB LIVE PAGE 1 RUN TIME: [address] [place] [address] Specimen Inquiry Name: CRYSTAL KEY : [address]: Quang Castano MD Acct: [id number] Unit: [id number] AGE: 31 Location: [facility] Re10/06/12 SEX: F Status: DEP ER SPEC: [id number] MITCHEL: 10/06/[address]: Quang Castano MD REQ: [id number] RECD: 10/07/12 STATUS: GEOVANNA OLIVAS DR: Yary HOPKINS,Anayeli _ [facility] ORDERED: Culture Stain Procedure Result Verified Site [...] performed at Main Lab DEPARTMENT OF PATHOLOGY, [facility] [place] [address] Jus Hernandez M.D. Director [facility] Permit #[id number] RUN DATE: 10/09/12 [facility] LAB LIVE PAGE 2 RUN TIME: 1050 [facility] [employer] [place], [place] [address] Specimen Inquiry Patient: CRYSTAL KEY [id number] (Continued) Specimen: [id number] Collected: 10/06/12 Received: 10/07/12 (Continued) Procedure Result Verified Site Wound/Misc Culture Final (continued) 10/09/12- 1050 1. STAPHYLOCOCCUS AUREUS (continued) M.I.C. RX --------- ------ Imipenem-Deduced S Ampicillin/Sulbactam-Deduced S Cefazolin-Deduced S * These antibiotics are not available in the [facility] Formulary Contact the Microbiology Department for any additional antibiotic reporting. END OF REPORT * ML=Testing performed at Main Lab DEPARTMENT OF PATHOLOGY, [address] [place] [address] Jus Hernandez M.D. Director [facility] Permit #[id number] --- RUN DATE: 02/02/12 [facility] NMI LIVE PAGE 1 RUN TIME: 4996 Specimen Inquiry RUN USER: INTERFACE -- Name: CRYSTAL KEY Status: REG REF Re01/31/12 Age/Sex: 31/F Unit#: [id number] Location: [facility]. : [birth year] -- Specimen: [id number] Spec Date:01/31/12- [facility] Dr: Dmitry Lopez ed, MD Spec Type: SURGICAL P Received:02/01/12 Copies to: Zackery Pringle MD SPECIMEN LEFT TEMPORAL ARTERY BIOPSY HISTORY CLINICAL INFORMATION: Headache, vision loss GROSS DESCRIPTION The specimen is received in formalin labelled [place] Key, Left Temporal Artery Biopsy, and consists of a cylindrical fragment of pink tissue measuring 1.4 x 0.2 x 0.2 cm. The specimen is serially sectioned and submitted entirely in one cassette. DIAGNOSIS Temporal artery, left, biopsy: Muscular arterial wall with patent lumen and no evidence of arteritis or atherosclerosis. Signed Electronically by: SUKUMAR UMAÑA 02/02/12 1536 -- -- DEPARTMENT OF PATHOLOGY, [address] [place] [address] [facility] Permit #[id number] Jus Hernandez M.D. Director Sukumar Umaña M.D. Web Marketing Analyst Dir maryse -- 7 Anion gap measurement [...] Procedures Date CPT Code Description Status 02/07/2016 66296 Tympanometry Completed 03/15/2012 Diabetic Retinal Eye Exam Completed Encounters Type Date Location Provider CPT E/M Dx Office Visit 07/15/2018 [place] [address] G43.009 8:30a [facility] G89.4 F41.1 E05.80 Office Visit 05/30/2017 3:00p [facility] Clint Anderson, [address] S93.402A [facility] 02/07/2016 1:30p [facility] Of [place] [address] H69.81 [place] AT [place] Azar Pagan H92.10 Office Visit 08/23/2015 10:40a [facility] [place] [address] G44.1 [place] R11.0 Z72.0 V04.81 Z23 Office Visit 07/22/2015 1:00p [facility] Zoey Streeter [address] 784.0 - Goyo Askew 787.02 Office Visit 05/31/2015 1:00p [facility] [place] [address] V72.84 [place] 784.0 305.1 493.10 Office Visit 05/27/2015 8:40a [facility] Zoey Streeter [address] 300.00 - Goyo Askew 723.1 Office Visit 05/20/2015 1:00p [facility] [place] [address] 300.00 [place] Office Visit 04/12/2015 10:20a [facility] [place] [address] 786.2 [place] 466.0 Office Visit 04/06/2015 1:00p [facility] [place] [address] 461.8 [place] Office Visit 01/25/2015 10:00a [facility] [place] [address] 338.4 [place] Office Visit 01/08/2015 11:00a [facility] Chanel Streeter 10543 338.4 [place] M.DBarbara Office Visit 12/28/2014 1:30p [facility] [place] [address] 784.0 [place] Office Visit 12/22/2014 9:40a [facility] Chanel Streeter 35728 784.0 [place] M.Neeraj Office Visit 12/18/2014 1:00p [facility] [place] [address] 784.0 [place] Office Visit 12/18/2014 8:50a [facility], Karthik Rahman, 25867 784.0 Hospitalists M.D. Office Visit 12/18/2014 10:15a [facility] Alejandro GauravBarbara James, 32946 338.4 Services [facility] M.DBarbara 723.1 784.0 Office Visit 12/17/2014 8:50a [facility], [address] M.D. 59925 784.0 Hospitalists Office Visit 05/06/2014 1:00p Neurosurgery Services Alejandro [place], 16988 348.4 [facility] M.D. Office Visit 09/06/2012 1:40p [facility] - Anayeli Pringle M.D. 88457 593.89 [place] Office Visit 07/16/2012 10:50a [facility] - Mikala Fajardo, 78762 723.1 [place] M.D. Office Visit 06/11/2012 9:40a [facility] - Anayeli Pringle M.D. 08922 300.00 [place] 784.0 305.1 Office Visit 06/07/2012 4:00p [facility] Anayeli Pringle M.D. 35626 782.3 - [place] Office Visit 05/13/2012 10:00a [facility] Senia Paredes, N.P. 97364 386.11 - [place] 784.0 Office Visit 04/30/2012 10:40a [facility] - Anayeli Pringle M.D. 46166 784.0 [place] 300.00 305.1 401.9 473.8 Office Visit 04/16/2012 1:00p [facility] - Anayeli Pringle M.D. 79714 784.0 [place] 300.00 535.40 787.02 Office Visit 03/29/2012 3:40p [facility] - Anayeli Pringle M.D. 22820 300.00 [place] Office Visit 03/22/2012 3:00p [facility] - Anayeli Pringle M.D. 65479 305.1 [place] 401.9 784.0 473.8 Office Visit 03/18/2012 11:20a [facility] Senia Paredes N.P. 66886 466.0 - [place] 784.0 Office Visit 03/12/2012 9:40a [facility] Zoey Streeter, 91893 493.10 - Goyo Askew 724.1 246.9 Office Visit 02/16/2012 12:40p [facility] - Anayeli Pringle M.D. 15093 401.9 [place] Office Visit 01/31/2012 1:40p [facility] - Anayeli Pringle M.D. 18696 446.5 [place] 784.0 493.10 Office Visit 01/26/2012 11:40a [facility] - Anayeli Pringle M.D. 28627 401.9 [place] 446.5 784.0 535.40 Office Visit 01/23/2012 3:20p [facility] - Anayeli Pringle M.D. 12619 784.0 [place] 446.5 401.9 Plan of Care Future Appointment(s):08/01/2018 8:30 am - Delfina Carrasquillo, DO at [facility]07/15/2018 - Delfina Carrasquillo, DOG43.009 Migraine w/o aura, not intractable, w/o status migrainosusNew Medication:Butalbital/ Acetaminophen/Caffeine 50-325-40 mgRecommendations:[facility] [phone] (ask about acupuncture, reiki, massage therapy) We are going to start to titrate down the fioricet--now only 3 per day maxG89.4 Chronic pain syndromeNew Medication:Amitriptyline HCL 50 mgReferral:Patient's Choice,Recommendations:I am referring you to [facility] MDF41.1 Generalized anxiety vkrrustxZ55.80 Other thyrotoxicosis without thyrotoxic crisis or storm
[2018-08-11 12:26] VITALS: BP 109/63
--- NOTE | 2018-08-11 13:09 | UC ---
Skin Complaint HPI - HPI Summary HPI Summary: Itchy rash on back of neck for approximately 2 weeks. No new medications, no memorable exposures. Now has itchy spot on L side of abdomen as of yesterday. - History of Current Complaint Chief Complaint: UCRash Time Seen by Provider: 08/11/18 12:35 Stated Complaint: RASH Hx Obtained From: Patient Hx Last Menstrual Period: May or June 2018; Irregular since D/C'ing Depo ?: No Onset/Duration: Gradual Onset Pain Intensity: 0 Pain Scale Used: 0-10 Numeric Aggravating Factor(s): Touch Associated Signs & Symptoms: Positive: Rash - Allergy/Home Medications Allergies/Adverse Reactions: Allergies Allergy/AdvReac Type Severity Reaction Status Date / Time Cephalosporins Allergy Unknown Shortness Verified 08/11/18 12:23 of Breath sulfamethoxazole Allergy Unknown BREATHING Verified 08/11/18 12:23 [From Bactrim] PROBLEM tramadol Allergy Unknown Hives Verified 08/11/18 12:23 trimethoprim [From Bactrim] Allergy Unknown BREATHING Verified 08/11/18 12:23 PROBLEM sumatriptan [From Imitrex] Allergy RASH AND Verified 08/11/18 12:[address] CONTRAST Allergy Unknown HIVES AND Uncoded 08/11/18 12:23 DIFFICULTY BREATHING Review of Systems Constitutional: Negative Skin: Rash Eyes: Negative ENT: Negative Respiratory: Negative Cardiovascular: Negative Gastrointestinal: Negative Genitourinary: Negative Motor: Negative Neurovascular: Negative Musculoskeletal: Negative Neurological: Negative Psychological: Negative Is Patient Immunocompromised?: No All Other Systems Reviewed And Are Negative: Yes PMH/Surg Hx/FS Hx/Imm Hx Other Neurological History: chiari malformation Psychological History: Depression Other History Of: Negative For: HIV, Hepatitis B, Hepatitis C, Anticoagulant Therapy - Surgical History Surgical History: Yes Surgery Procedure, Year, and Place: TONSILS; APPENDIX; CHIARI MALFORMATION DECOMPRESSION C1 - C2 LAMINECTOMY -JUNE 22 2014 DONE AT [facility]. CHIARI MALFORMATION DECOMPRESSION REPEAT 06/28/15, OP SITE OK FOR MRI SCAN PER DR JASSO BASED ON CT 10/26/16 - Family History Known Family History: Positive: Cardiac Disease - father-chf, Hypertension, Respiratory Disease - MOTHER COPD Family History: daughter - TURNER's - Social History Lives: With Family Alcohol Use: None Substance Use Type: Excessive Caffeine Smoking Status (MU): Current Every Day Smoker Type: Cigarettes Amount Used/How Often: /2 PPD Length of Time of Smoking/Using Tobacco: Since Age 19 Have You Smoked in the Last Year: Yes When Did the Patient Quit Smoking/Using Tobacco: 2 years Household Exposure Type: Cigarettes - Immunization History Most Recent Influenza Vaccination: July 2016 Most Recent Tetanus Shot: 11/23/2010 Most Recent Pneumonia Vaccination: 11/23/2010 Physical Exam Triage Information Reviewed: Yes Appearance: Well-Appearing, No Pain Distress, Well-Nourished Vital Signs: Initial Vital Signs Temp 98.4 F 08/11/18 12:20 Pulse 102 08/11/18 12:20 Resp 16 08/11/18 12:20 BP 109/63 08/11/18 12:20 Pulse Ox 99 08/11/18 12:20 Vital Signs Reviewed: Yes Eye Exam: Normal Eyes: Positive: Conjunctiva Clear ENT Exam: Normal ENT: Positive: Normal ENT inspection, Hearing grossly normal, Pharynx normal, TMs normal Dental Exam: Normal Neck exam: Normal Neck: Positive: Supple, Nontender Respiratory Exam: Normal Respiratory: Positive: Chest non-tender, Lungs clear, Normal breath sounds, No respiratory distress, No accessory muscle use Cardiovascular Exam: Normal Cardiovascular: Positive: RRR, No Murmur Musculoskeletal Exam: Normal Psychological Exam: Normal Skin Exam: Other - raised itchy red bumpy rash on posterior neck, small cluster on L abdomen. No vesicles or ulcerations. Course/Dx - Diagnoses Provider Diagnoses: contact dermatitis Discharge - Sign-Out/Discharge Documenting (check all that apply): Patient Departure All imaging exams completed and their final reports reviewed: No Studies - Discharge Plan Condition: Stable Disposition: HOME Prescriptions: Triamcinolone 0.5% CREAM(NF) [Triamcinolone 0.5% CREAM*] 1 applic TOPICAL BID # 60 gm Patient Education Materials: Contact Dermatitis (ED) Referrals: Delfina Carrasquillo DO [Primary Care Provider] - 2 Weeks Additional Instructions: Use this cream and see your primary care provider if you are not entirely better within 2 weeks. - Billing Disposition and Condition Condition: STABLE Disposition: Home
== END 2018-08-11 12:47 | disposition home or self-care (01) ==
LOC: UCCORT 11:31
CPT/HCPCS: 99212; G0463

== ENCOUNTER 2018-08-28 09:00 | Emergency (ER) | payer OTHER ==
[2018-08-28 10:17] VITALS: BP 128/78
--- NOTE | 2018-08-28 10:34 | UC ---
General HPI - HPI Summary HPI Summary: "BARKY COUGH". FOR OVER A WEEK. GOT A COLD FROM HER CHILD AND NOW SOB, WHEEZY AND COUGH. HX ASTHMA. +FEVER/CHILLS. - History of Current Complaint Chief Complaint: UCRespiratory Stated Complaint: UPPER RESP Time Seen by Provider: 08/28/18 10:27 Hx Obtained From: Patient Hx Last Menstrual Period: unknown, depo Onset/Duration: Gradual Onset Timing: Constant Pain Intensity: 5 Alleviating: PARTIAL WITH VENTOLIN INHALER Associated Signs & Symptoms: Positive: Cough, Fever, SOB, Wheezing. Negative: Chest Pain - Allergy/Home Medications Allergies/Adverse Reactions: Allergies Allergy/AdvReac Type Severity Reaction Status Date / Time Cephalosporins Allergy Unknown Shortness Verified 08/28/18 10:13 of Breath sulfamethoxazole Allergy Unknown BREATHING Verified 08/28/18 10:13 [From Bactrim] PROBLEM tramadol Allergy Unknown Hives Verified 08/28/18 10:13 trimethoprim [From Bactrim] Allergy Unknown BREATHING Verified 08/28/18 10:13 PROBLEM sumatriptan [From Imitrex] Allergy RASH AND Verified 08/28/18 10:[address] CONTRAST Allergy Unknown HIVES AND Uncoded 08/28/18 10:13 DIFFICULTY BREATHING Home Medications: Home Medications Marijuana 08/28/18 [History] PMH/Surg Hx/FS Hx/Imm Hx - Additional Past Medical History Additional PMH: CHIARI malformation Respiratory History: Asthma Other History Of: Negative For: HIV, Hepatitis B, Hepatitis C, Anticoagulant Therapy - Surgical History Surgical History: Yes Surgery Procedure, Year, and Place: TONSILS; APPENDIX; CHIARI MALFORMATION DECOMPRESSION C1 - C2 LAMINECTOMY -JUNE 22 2014 DONE AT [facility]. CHIARI MALFORMATION DECOMPRESSION REPEAT 06/28/15, OP SITE OK FOR MRI SCAN PER DR JASSO BASED ON CT 10/26/16 - Family History Known Family History: Positive: Cardiac Disease - father-chf, Hypertension, Respiratory Disease - MOTHER COPD Family History: daughter - TURNER's - Social History Lives: With Family Alcohol Use: None Substance Use Type: Excessive Caffeine, Marijuana Substance Use Comment - Amount & Last Used: prescribed Smoking Status (MU): Current Every Day Smoker Type: Cigarettes Amount Used/How Often: 1/2 PPD Length of Time of Smoking/Using Tobacco: Since Age 19 Have You Smoked in the Last Year: Yes When Did the Patient Quit Smoking/Using Tobacco: 2 years Household Exposure Type: Cigarettes - Immunization History Most Recent Influenza Vaccination: July 2016 Most Recent Tetanus Shot: 11/23/2010 Most Recent Pneumonia Vaccination: 11/23/2010 Vaccination Up to Date: Yes Review of Systems Constitutional: Fever, Chills Skin: Negative Eyes: Negative ENT: Negative Respiratory: Shortness Of Breath, Cough Cardiovascular: Negative Gastrointestinal: Negative Genitourinary: Negative Motor: Negative Neurovascular: Negative Musculoskeletal: Negative Neurological: Negative Psychological: Negative Is Patient Immunocompromised?: No All Other Systems Reviewed And Are Negative: Yes Physical Exam Triage Information Reviewed: Yes Appearance: Well-Appearing Vital Signs: Initial Vital Signs Temp 98.1 F 08/28/18 10:11 Pulse 100 08/28/18 10:11 Resp 16 08/28/18 10:11 BP 128/78 08/28/18 10:11 Pulse Ox 98 08/28/18 10:11 Vital Signs Reviewed: Yes Eyes: Positive: Conjunctiva Clear ENT: Positive: Pharynx normal, TMs normal. Negative: Nasal congestion Neck: Positive: Supple, Nontender, No Lymphadenopathy Respiratory: Positive: No respiratory distress, Decreased breath sounds, Expiration - FEW SCATTERED., Other: - COUGH IS CONGESTED Cardiovascular: Positive: RRR, No Murmur Abdomen Description: Positive: Nontender, No Organomegaly, Soft Bowel Sounds: Positive: Present Musculoskeletal: Positive: ROM Intact Neurological: Positive: Alert Psychological: Positive: Age Appropriate Behavior Skin Exam: Normal Course/Dx - Course Course Of Treatment: Nontoxic. Not hypoxic. No concern for pneumonia. Given duration and worsening with subjective fever and chills going to treat for an asthma flare as well as a secondary bacterial infection. - Differential Dx - Multi-Symptom Provider Diagnoses: Asthma flare Discharge - Sign-Out/Discharge Documenting (check all that apply): Patient Departure All imaging exams completed and their final reports reviewed: No Studies - Discharge Plan Condition: Stable Disposition: HOME Prescriptions: Azithromycin TAB* [Zithromax TAB (Z-ANGY) 250 mg #6 tabs] 2 tab PO .TODAY, THEN 1 DAILY #1 angy predniSONE TAB* [Deltasone 20 MG TAB*] 40 mg PO DAILY 5 Days #10 tab Patient Education Materials: Asthma (DC) Referrals: Delfina Carrasquillo DO [Primary Care Provider] - 7 Days Additional Instructions: USE VENTOLIN INHALER 2 PUFFS EVERY 6 HOURS - Billing Disposition and Condition Condition: STABLE Disposition: Home
== END 2018-08-28 10:38 | disposition home or self-care (01) ==
LOC: UCCORT 09:00
DX: J45.909 Unspecified asthma, uncomplicated (principal); F17.210 Nicotine dependence, cigarettes, uncomplicated; Z88.3 Allergy status to other anti-infective agents; Z88.2 Allergy status to sulfonamides; Z88.8 Allergy status to other drugs, medicaments and biological substances; Z91.041 Radiographic dye allergy status
CPT/HCPCS: 99212; G0463

== ENCOUNTER 2018-09-23 07:26 | Emergency (ER) | payer OTHER ==
--- OUTSIDE RECORDS SUMMARY | 2018-09-23 07:32 | XMS REPORT ---
:1980 External Reference #:[id number] Author Organization [facility] Address [address] [place] [address] [place] [address] Phone [phone] Care Team Providers Name Role Phone Patient's Choice Primary Care Physician Unavailable Payers Type Date Identification Numbers Payment Provider Subscriber Commercial Effective: Policy Number: [id number] Hillrosehenry Rojas Agata Key 2017 Group Name: [id number] [address] PayID: [id number] [place] [address] Commercial Effective: 2014 Policy Number: [id number] [place] Crystal Parmar Shahid Expires: 2017 Group Name: [id number] [address] PayID: [id number] [place] [address] Medigap Part B Effective: 2009 Policy Number: BS Facets Crystal Parmar Shahid [id number] Expires: 2012 PayID: [id number] [address] [address] [place] [address] Medigap Part B Expires: 2017 Policy Number: [id number] Medicaid Crystal P Shahid Group Name: 1 1 [address] PayID: [id number] [place] [address] Problems Date Description Provider Status Onset: 01/31/2012 Headache Anayeli Pringle M.D. Active Onset: 01/31/2012 Intrinsic asthma without status Anayeli Pringle M.D. Active asthmaticus Onset: 03/29/2012 Anxiety state Anayeli Pringle M.D. Active Onset: 09/19/2018 Tobacco user Kamlesh Allen MD Active Onset: 09/19/2018 Allergic rhinitis due to pollen Kamlesh Allen MD Active Onset: 09/19/2018 Cough Kamlesh Allen MD Active Onset: 09/19/2018 Migraine without aura, not Kamlesh Allen MD Active refractory Onset: 02/07/2016 Other specified disorders of Rom[place] [...] Form Strength Qnty SIG Indications Ordering Provider Paroxetine HCL 10/25 Active Tablets 40mg 30tab Use 1 tab F41.1 Kamlesh Allen, s daily. Nicotrol 10/25 Active Inhaler 10mg 168un use every 2 F17.210 Kamlesh Allen its hours as MD needed for nicotine cravings. Neurontin 10/25 Active Capsules 300mg 90cap 3 cap by Kamlesh Allen, s mouth three MD times a day Amitriptyline 10/25 Active Tablets 10mg 30tab one tab G89.4 Kamlesh Allen HCL s daily. MD [place] 08/08 Active Tablets 10mg 30tab 1 tab by J30.1 Delfina s mouth every Senner, DO day Butalbital/Burton 07/15 Active Capsules 50-325-40 42cap take one G43.009 Kamlesh Allen taminophen/Caf /2017 mg s tablet no feievelyn more than two times a day as needed for headache Paxil 07/15 Active Tablets 20mg 60tab 2 tabs by F41.1 Kamlesh Allen, /2017 s mouth every MD day Zofran Odt 05/20 Active Tablets 8mg 40tab one tablet F41.9 Kamlesh Allen, /2014 Dispers s three times MD a day as needed nausea (following brain surgery) Zyrtec Allergy Active Tablets 10mg 1 by mouth Unknown /0000 every day prn Ventolin HFA Active Aerosol 108(90Bas 1unit 2 puffs by Kamlesh Allen , / e) s mouth four MD mcg/Act times a day as needed CBD Oil Active 40Tab 1 cap daily Unknown /0000 THC Active 5mg Per 2 gtts every Unknown /0000 gtts night for sleep Vape Active 2-3 Unknown Marijuana /0000 inhalations as needed Amitriptyline 08/08 Hx Tablets 25mg 30tab 1 tab by G89.4 Delfina HCL s mouth every Senner, DO - day 09/19 Amitriptyline 07/15 Hx Tablets 50mg 30tab 1 cap every G89.4 Delfina HCL s day Senner, DO - 08/08 Propranolol 07/03 Hx Tablets 20mg 120ta 1 tab twice G43.009 Delfina HCL bs a day Senner, DO - 08/07 Fioricet 07/03 Hx Capsules 50-300-40 30cap 1 tab every G43.009 Delfina mg s 6 hours as Senner, DO - needed for 07/03 migraine 2018 Paxil 07/03 Hx Tablets 20mg 30tab 1.5 by mouth F41.1 Delfina s every day Senner, DO - 07/15 Butalbital/Burton 07/03 Hx Tablets 50-325-40 30tab 1 tab every G43.009 Kamlesh Allen, taminophen/Caf /2017 mg s 6 hours as MD robert - needed for 07/15 migraine Nicotine 09/17 Hx Gum 2mg 330un one piece Jeremiah Polacrilex its every 1-2 RADHA Bazzi Starter Kit - hours 02/05 Zyban 10 Hx Tablets ER 150mg 60tab One tablet [...] Tablets 10mg 60tab 1PO Q6H prn Zoey HCL s palpitations Cotton, - / [...] 350mg 60tab 1 by mouth 723.1 Zoey s 3-4 times a Cotton, - day [...] mouth 300.00 Jeremiah Pamoate s qid as Jluis, BENDING ROLL HAND - needed for 05/31 anxiety Escitalopram 05/20 Hx Tablets 10mg 30tab 1 tab daily 300.00 Jeremiah Oxalate s Jluis, BENDING ROLL HAND - 02/05 Promethazine-C 04/12 Hx Syrup 6.25-10mg 473ml 5 Jeremiah odeine /2014 /5ML milliliters Jluis, BENDING ROLL HAND - every 4-6 04/17 hours for cough Levofloxacin 04/12 Hx Tablets 500mg 10tab one by mouth Jeremiah s daily for 10 Jluis, BENDING ROLL HAND - days 04/22 Prednisone 04/12 Hx Tablets 10mg 30tab take 6 tabs Jeremiah s daily x 1 Jluis, BENDING ROLL HAND - day then 5 04/30 tab daily x 1 days, then 4 tab daily for 2 day, and 3 tab for 2 day, 2 tab or 2 days Doxycycline 04/06 Hx Capsules 100mg 20cap one tablet Jeremiah Hyclate s twice daily Jluis, BENDING ROLL HAND - for 10 days. 04/12 Promethazine-D 04/06 Hx Syrup 6.25-15mg 118ml take 5ml Jeremiah M /2014 /5ML every 4-6 Jluis, BENDING ROLL HAND - hours as 04/12 needed for cough. Fluticasone 04/06 Hx Suspension 50mcg/Act 16gm 2 sprays Jeremiah Propionate each nostril Jluis, BENDING ROLL HAND - every day 07/21 for 2 weeks. Antivert 01/25 Hx Tablets 25mg 30tab 1 every 6 Jeremiah s hours as Jluis, BENDING ROLL HAND - needed 03/26 dizziness Oxycodone HCL 01/25 Hx Capsules 5mg 59cap 2 tablets 784.0 Jeremiah /2014 s 5xday x 1 Jluis, BENDING ROLL HAND - day; 1 01/25 tablet 5x for 7 days, 1 tablet 2xday for 7 days. Ondansetron 01/25 Hx Tablets 4mg 60tab dissolve one 300.00 Jeremiah Dispers s tablet Jluis, BENDING ROLL HAND - orally every 05/20 8 hours needed [...] 1.5 tabs 5 784.0 bs times/day x [place], - 7 days, then M.D. 01/25 1 [...] 50mg 60tab 2-3 tablets s at at [place], - bedtime as M.D. 07/22 needed Tizanidine HCL 12/28 Hx Tablets 2mg 90tab 1 tab three 338.4 s times a day RADHA Bazzi - 01/08 Oxycodone HCL 12/28 Hx Tablets 10mg 175ta 3 tabs by 784.0 Jeremiah bs mouth 5 Jluis, BENDING ROLL HAND - times daily 01/08 for 1 week and then 2 tabs 5 times daily for a week Oxycodone HCL 12/22 Hx Tablets 10mg 175ta 3 tabs by 784.0 Jeremiah /2014 bs mouth 5 Jluis, BENDING ROLL HAND - times daily 12/28 for 1 week and then 2 tabs 5 times daily for a week No Active 05/06 Hx Unknown Medications /2013 - 12/18 Hydrocodone/Ac 07/19 Hx Tablets 7.5-325mg 12tab take 1 Anayeli etaminophen s tablet every Pringle, - 4 hours as M.D. 05/06 needed for pain Hydrocodone/Ac 06/11 Hx Tablets 7.5-325mg 20tab take 1 Enzo etaminophen s tablet every D. Mishel, - 6 hours as M.D.,FACP 07/16 needed for pain Hydrocodone 05/15 Hx Tablets 7.5-300mg 20tab take 1 Anayeli Bitartrate/Burton s tablet as Yary, taminophen - needed for M.D. 06/11 severe [...] Tablets 10-650mg 56tab take 1 784.0 Anayeli s tablet every Pringle, - 6 hours as M.D. 05/13 needed for pain relief Ondansetron 04/16 Hx Tablets 4mg 30tab take 1-2 787.02 Anayeli HCL s tablets Yary, - every 6 M.D. 04/16 hours as needed Ondansetron 04/16 Hx Tablets 4mg 60tab Take 1-2 787.02 Anayeli Odt Dispers s tablets Yary, - every 8hours M.D. 05/06 as needed [...] 42tab Take 1 300.00 s tablet twice Yary, - daily as M.D. 05/06 needed Prednisone 03/22 Hx Tablets 10mg 30tab take 1tabs s daily Yary, - M.D. 09/06 Chantix 03/22 Hx Tablets 0.5mg X QS take as 305.1 Anayeli Starting 11 & 1 mg directed Wes Pringle - X M.D. 09/06 Oxycodone HCL 03/18 Hx Capsules 5mg 24cap 1 capsule 446.5 s every 6 Yary, - hours as M.D. 03/29 needed for pain Fluticasone 03/18 Hx Suspension 50mcg/Act 1unit 2 sprays 466.0 s each nostril Ferdinand, - daily as M.D. 05/06 Azithromycin 03/12 Hx Tablets 250mg 6tabs 2 tabs po on 493.10 day 1; 1 tab Cotton, - po qd on M.D. 03/18 days 2- Guaifenesin/Co 03/12 Hx Syrup 100-10mg/ 118ml 1-2 tsp po q 493.10 Zoey deine 5ML 4 h Ferdinand, - M.D. 03/18 Advair HFA 03/12 Hx Aerosol 45-21mcg/ 2unit 2 puffs bid 493.10 Zoey Samples Act s Cotton, - M.D. 05/06 Cheratussin ac 02/22 Hx Syrup 100-10mg/ 200ml Take 10 ml 5ML by mouth Yary, - every 6 M.D. 03/12 hours needed for cough Lisinopril 01/25 Hx Tablets 5mg 30tab take 1 401.9 s tablet Yary, - orally once M.D. 02/07 a day Oxycodone HCL 01/23 Hx Capsules 5mg 14cap 1 capsule 446.5 s every 6 Yary, - hours as M.D. 02/15 needed for pain Ventolin HFA Hx Aerosol 108(90Bas 18gm 2 puffs po Anayeli e) mcg/ac qid prn Yary, - M.D. 05/06 Zyrtec Allergy Hx Capsules 10mg 30cap 1 po qd prn Unknown / s - 05/06 Magnesium Hx Capsules 400mg 30cap po qd Unknown Oxide s - 05/06 Ketorolac Hx Tablets 10mg 20tab 1 tid prn Unknown Tromethamine s - 05/[address] 20mg 30cap Take 2 Anayeli s tablets Yary, - twice daily M.D. 05/06 Implanon Hx Implant 68mg Unknown / - 01/25 Prednisone Hx Tablets 20mg 90tab Take 25 mg 446.5 Unknown s daily - 03/18 Cozaar Hx Tablets 25mg 30tab 1 po qd Unknown / s - 05/06 Hydrocodone/Ac Hx Tablets 5-500mg 20tab one or two Unknown etaminophen / s po every 4 - - 6 [...] Hx Solution 120-12mg/ take 10 Unknown Codeine / 5ML milliliters - by mouth 06/11 every 4 to hours if needed for pain and Prednisone 00 Hx Tablets 20mg take 3 Unknown /0000 [...] every - 12 hours as 07/02 Butalbital/Burton Hx Tablets 50-325-40 Take 1 Unknown taminophen/Caf /0000 mg Tablet Every feine - 6 Hours as 07/02 Neurontin Hx Tablets 600mg 180ta 2 tabs by Kamlesh Allen, /0000 bs mouth three MD - times a day 09/19 mdd Amitriptyline Hx Tablets 50mg 1 pills by Unknown HCL /0000 mouth at - bedtime. 08/07 watch excessive sleepiness Immunizations CPT Code Status Date Vaccine Lot # [id number] Given 08/13/2018 Influenza Virus Vaccine, Quadrivalent, Split, Preservative Free [id number] Given 08/23/2015 Influenza Virus Vaccine, Quadrivalent, Split, [id number] Preservative Free Vital Signs Date Vital Result Comment 09/19/2018 Weight 166.00 lb Heart Rate 94 /min BP Systolic 104 mmHg BP Diastolic 70 mmHg Respiratory Rate 16 /min Body Temperature 98.3 F Pain Level 6 head O2 % BldC Oximetry 95 % 08/08/2018 Weight 162.00 lb Heart Rate 100 [...] Color Yellow Urine Appearance Clear Urine Specific [place] 1.008 Low 1.010-1.030 Urine pH 7.0 5-9 [...] Color Yellow Urine Appearance Cloudy Urine Specific [place] 1.015 1.010-1.030 Urine pH 6.0 5-9 Urine [...] NOTE) 5 Ua Routine 09/06/2012 Ua Specific [place] 1.000 Ua PH 8.5 Ua Color yellow [...] [address]: Jeremiah Bazzi NP Acct: [id number] Unit: [id number] AGE: 34 Location: [facility] Re05/31/15 SEX: F Status: REG REF SPEC: [id number] MITCHEL: 05/31/[address]: Jeremiah Bazzi NP REQ: [id number] RECD: 05/31/15 STATUS: COMP _ SOURCE: URINE SPDESC: ORDERED: Urine Culture Urine Source: Random Procedure Result Verified Site Urine Culture Final 06/02/15- 915 ML Organism 1 NORMAL MATTHIAS [place] Count 10-25,000 (Moderate) CFU/ML * ML - MAIN LAB ([facility]) . END OF REPORT * ML=Testing performed at Main Lab DEPARTMENT OF PATHOLOGY, [address] [place] [address] Jus Hernandez M.D. Director [facility] # [id number] 4 Because ethnic data is not always [...] <15 (or dialysis) 5 RUN DATE: 10/09/12 [facility] LAB LIVE PAGE 1 RUN TIME: [address] [place] [address] Specimen Inquiry Name: CRYSTAL KEY : [address]: Quang Castano MD Acct: [id number] Unit: [id number] AGE: 31 Location: [facility] Re10/06/12 SEX: F Status: DEP ER SPEC: [id number] MITCHEL: 10/06/[address]: Quang Castano MD REQ: [id number] RECD: 10/07/12 STATUS: GEOVANNA OLIVAS DR: Yary HOPKINS,Anayeli _ [facility] ORDERED: Culture Stain Procedure Result [...] performed at Main Lab DEPARTMENT OF PATHOLOGY, [facility] [place] [address] Jus Hernandez M.D. Director [facility] Permit #[id number] RUN DATE: 10/09/12 [facility] LAB LIVE PAGE 2 RUN TIME: 1050 [facility] [employer] [place], [place] [address] Specimen Inquiry Patient: CRYSTAL KEY [id number] (Continued) Specimen: [id number] Collected: 10/06/12 Received: 10/07/12 (Continued) Procedure Result Verified Site Wound/Misc Culture Final (continued) 10/09/12- 1050 1. STAPHYLOCOCCUS AUREUS (continued) M.I.C. RX --------- ------ Imipenem-Deduced S Ampicillin/Sulbactam-Deduced S Cefazolin-Deduced S * These antibiotics are not available in the [facility] Formulary Contact the Microbiology Department for any additional antibiotic reporting. END OF REPORT * ML=Testing performed at Main Lab DEPARTMENT OF PATHOLOGY, [address] [place] [address] Jus Hernandez M.D. Director [facility] Permit #[id number] --- RUN DATE: 02/02/12 [facility] NMI LIVE PAGE 1 RUN TIME: 2436 Specimen Inquiry RUN USER: INTERFACE -- Name: CRYSTAL KEY Status: REG REF Re01/31/12 Age/Sex: 31/F Unit#: [id number] Location: [facility]. : [birth year] -- Specimen: [id number] [id number] Spec Date:01/31/12- [facility] Dr: Dmitry Lopez ed, MD Spec Type: [...] 02/02/12 1536 -- -- DEPARTMENT OF PATHOLOGY, [address] [place] [address] [facility] Permit #[id number] Jus Hernandez M.D. Director Sukumar Umaña M.D. Humidifier Maintenance Worker Dir maryse -- 7 Anion gap measurement [...] Procedures Date CPT Code Description Status 02/07/2016 48100 Tympanometry Completed 03/15/2012 Diabetic Retinal Eye Exam Completed Encounters Type Date Location Provider CPT E/M Dx Office Visit 08/08/2018 [facility] [place] [address] J30.1 9:30a [facility] G89.4 G43.009 Office Visit 07/15/2018 8:30a [facility] [place] [address] G43.009 [facility] G89.4 F41.1 E05.80 Office Visit 07/03/2018 8:30a [facility] [place] [address] G89.4 [facility] [place] [facility] G43.009 Z72.0 F41.1 Office Visit 05/30/2017 3:00p Orthopedic Services Clint Anderson, [address] S93.402A [facility] 02/07/2016 1:30p ENT Services Of [place] [address] H69.81 Prashanth.M.Shant AT [place] Azar Pagan H92.10 Office Visit 08/23/2015 10:40a [facility] [place] [address] G44.1 [place] R11.0 Z72.0 V04.81 Z23 Office Visit 07/22/2015 1:00p [facility] Internal Medicine Zoey Streeter [address] 784.0 - Goyo Askew 787.02 Office Visit 05/31/2015 1:00p [facility] [place] [address] V72.84 [place] 784.0 305.1 493.10 Office Visit 05/27/2015 8:40a [facility] Internal Medicine Zoey Streeter [address]663 300.00 - Goyo Askew 723.1 Office Visit 05/20/2015 1:00p [facility] [place] [address] 300.00 [place] Office Visit 04/12/2015 10:20a [facility] [place] [address] 786.2 [place] 466.0 Office Visit 04/06/2015 1:00p [facility] [place] [address] 461.8 - [place] Office Visit 01/25/2015 10:00a [facility] [place] [address] 338.4 - [place] Office Visit 01/08/2015 11:00a [facility] Internal Medicine Zoey Streeter 41648 338.4 - Goyo Askew Office Visit 12/28/2014 1:30p [facility] [place] [address] 784.0 - [place] Office Visit 12/22/2014 9:40a [facility] Internal Medicine Zoey Streeter, [address]406 784.0 - [place] Azar Office Visit 12/18/2014 10:15a [facility] Alejandro Ramirez, 93998 338.4 Services Of [facility] Azar 723.1 784.0 Office Visit 12/18/2014 8:50a [facility] Karthik Rahman, 13950 784.0 Assoc, Hospitalists [place] Office Visit 12/18/2014 1:00p [facility] [place] [address] 784.0 - [place] Office Visit 12/17/2014 8:50a [facility] [address] M.D. 97988 784.0 Assoc,pc Hospitalists Office Visit 05/06/2014 1:00p Neurosurgery Services Alejandro Farah M.D. 89814 348.4 Of [facility] Office Visit 09/06/2012 1:40p [facility] Internal Medicine Anayeli Pringle M.D. 00542 593.89 - [place] Office Visit 07/16/2012 10:50a [facility] Internal Medicine Mikala Fajardo, 59627 723.1 - Goyo Askew Office Visit 06/11/2012 9:40a [facility] Internal Medicine Anayeli Pringle M.D. 08564 300.00 - [place] 784.0 305.1 Office Visit 06/07/2012 4:00p [facility] Internal Medicine Anayeli Pringle M.D. 41034 782.3 - [place] Office Visit 05/13/2012 10:00a [facility] Internal Medicine Senia Paredes, N.P. 88864 386.11 - [place] 784.0 Office Visit 04/30/2012 10:40a [facility] Internal Medicine - Anayeli Pringle M.D. 17581 784.0 [place] 300.00 305.1 401.9 473.8 Office Visit 04/16/2012 1:00p [facility] Internal Medicine - Anayeli Pringle M.D. 52239 784.0 [place] 300.00 535.40 787.02 Office Visit 03/29/2012 3:40p [facility] Internal Medicine - Anayeli Pringle M.D. 71452 300.00 [place] Office Visit 03/22/2012 3:00p [facility] Internal Medicine - Anayeli Pringle M.D. 31810 305.1 [place] 401.9 784.0 473.8 Office Visit 03/18/2012 11:20a [facility] Internal Medicine Senia Paredes, N.P. 55400 466.0 - [place] 784.0 Office Visit 03/12/2012 9:40a [facility] Internal Medicine Zoey Streeter, 56286 493.10 - Goyo Askew 724.1 246.9 Office Visit 02/16/2012 12:40p [facility] Internal Medicine - Anayeli Pringle M.D. 76671 401.9 [place] Office Visit 01/31/2012 1:40p [facility] Internal Medicine - Anayeli Pringle M.D. 11152 446.5 [place] 784.0 493.10 Office Visit 01/26/2012 11:40a [facility] Internal Medicine - Anayeli Pringle M.D. 74506 401.9 [place] 446.5 784.0 535.40 Office Visit 01/23/2012 3:20p [facility] Internal Medicine Chanel Pringle M.D. 70925 784.0 [place] 446.5 401.9 Plan of Care Future Appointment(s):10/22/2018 9:00 am - Kamlesh Allen MD at [facility]09/19/2018 - Kamlesh Allen MDG43.009 Migraine w/o aura, not intractable, w/o status migrainosusComments:Continue the CBD vape and hopefully the new injection Aimovig next month. No more than 2 fiorcet a day. We will plan to reduce further. Overuse of this medication can cause rebound headaches.F41.1 Generalized anxiety disorderNew Medication:Paroxetine HCL 40 mgComments:Your paxil was changed to 40mg daily to get on the $4 list.R05 CoughComments:Continue to raise head of bed. Continue flonaseAvoid overuse of Afrin or Sudafed.J30.1 Allergic rhinitis due to pollenComments:Stay well prptmeruH74.210 Nicotine dependence, cigarettes, uncomplicatedNew Medication: Nicotrol 10 mgComments:Please call [place] QUITS again for attempt at nicotine patch. Try the lower 7mg if able. Will try to order the nicotine inhaler for you.
[2018-09-23 07:39] VITALS: BP 147/57
[2018-09-23] MEDS ORDERED: predniSONE TAB* 20 MG PO ONE (07:47)
[2018-09-23] MEDS ORDERED: Albuterol HFA INHALER* 8 gm MDI INH ONE (07:47)
--- NOTE | 2018-09-23 08:00 | ED ---
Asthma - HPI Summary HPI Summary: 37 yr old female with long standing Asthma history, presents here with a few days of URI symptoms, and this morning, coughing and SOB. she states this is her typical asthma presentation, and she is here only because she could not afford the MDI. She would like MDI given to her here, and script for prednisone. She has no CP, no other complaints. - History of Current Complaint Chief Complaint: UCRespiratory Stated Complaint: ASTHMA ATTACK Time Seen by Provider: 09/23/18 07:32 Hx Last Menstrual Period: 08/30/18 Pain Intensity: 0 - Allergy/Home Medications Allergies/Adverse Reactions: Allergies Allergy/AdvReac Type Severity Reaction Status Date / Time Cephalosporins Allergy Unknown Shortness Verified 09/23/18 07:32 of Breath sulfamethoxazole Allergy Unknown BREATHING Verified 09/23/18 07:32 [From Bactrim] PROBLEM tramadol Allergy Unknown Hives Verified 09/23/18 07:32 trimethoprim [From Bactrim] Allergy Unknown BREATHING Verified 09/23/18 07:32 PROBLEM sumatriptan [From Imitrex] Allergy RASH AND Verified 09/23/18 07:[address] CONTRAST Allergy Unknown HIVES AND Uncoded 09/23/18 07:32 DIFFICULTY BREATHING PMH/Surg Hx/FS Hx/Imm Hx Endocrine/Hematology History: Denies: Hx Anticoagulant Therapy, Hx Diabetes, Hx Thyroid Disease Cardiovascular History: Denies: Hx Congestive Heart Failure, Hx Deep Vein Thrombosis, Hx Hypertension , Hx Myocardial Infarction, Hx Pacemaker/ICD Respiratory History: Reports: Hx Asthma, Hx Bronchopulmonary Dysplasia, Hx Seasonal Allergies Denies: Hx Chronic Obstructive Pulmonary Disease (COPD), Hx Lung Cancer, Hx Pneumonia, Hx Pulmonary Embolism GI History: Reports: Other GI Disorders - low abd pain x4 days, hx left ovary cyst, appendectomy 99 Denies: Hx Gall Bladder Disease, Hx Gastrointestinal Bleed, Hx Ulcer, Hx Urosepsis History: Reports: Hx Kidney Stones - DX 9MM RIGHT STONE X2 WKS AGO Denies: Hx Renal Disease Musculoskeletal History: Reports: Hx Back Problems - L3-L4; L4-L5; L5-S1 Herniated Disc Sensory History: Reports: Hx Contacts or Glasses Denies: Hx Hearing Aid Opthamlomology History: Reports: Hx Contacts or Glasses Neurological History: Reports: Hx Headaches, Hx Migraine, Other Neuro Impairments/Disorders - chiari malformation Denies: Hx Dementia, Hx Seizures, Hx Transient Ischemic Attacks (TIA) Psychiatric History: Reports: Hx Anxiety Denies: Hx Depression, Hx Panic Disorder, Hx Schizophrenia, Hx Bipolar Disorder, Hx Substance Abuse - Surgical History Surgery Procedure, Year, and Place: TONSILS; APPENDIX; CHIARI MALFORMATION DECOMPRESSION C1 - C2 LAMINECTOMY -JUNE 22 2014 DONE AT [facility]. CHIARI MALFORMATION DECOMPRESSION REPEAT 06/28/15, OP SITE OK FOR MRI SCAN PER DR JASSO BASED ON CT 10/26/16 Hx Anesthesia Reactions: No - Immunization History Date of Tetanus Vaccine: n Date of Influenza Vaccine: 07/2017 Infectious Disease History: No Infectious Disease History: Denies: Hx Clostridium Difficile, Hx Hepatitis, Hx Human Immunodeficiency Virus (HIV), Hx of Known/Suspected MRSA, Hx Shingles, Hx Tuberculosis, Hx Known/ Suspected VRE, Hx Known/Suspected VRSA, History Other Infectious Disease, Traveled Outside the in Last 30 Days - Family History Known Family History: Positive: Cardiac Disease - father-chf, Hypertension, Respiratory Disease - MOTHER COPD Family History: daughter - TURNER's - Social History Alcohol Use: None Hx Substance Use: No Substance Use Type: Reports: Excessive Caffeine, Marijuana Substance Use Comment - Amount & Last Used: prescribed Hx Tobacco Use: Yes Smoking Status (MU): Former Smoker Type: Cigarettes Amount Used/How Often: 1/2 PPD Length of Time of Smoking/Using Tobacco: Since Age 19 Have You Smoked in the Last Year: Yes Review of Systems Constitutional: Negative Positive: Nasal Discharge Positive: Shortness Of Breath, Cough All Other Systems Reviewed And Are Negative: Yes Physical Exam Triage Information Reviewed: Yes Vital Signs On Initial Exam: Initial Vitals Temp Pulse Resp BP Pulse Ox 97.7 F 116 20 147/57 99 09/23/18 07:35 09/23/18 07:35 09/23/18 07:35 09/23/18 07:35 09/23/18 07:35 Vital Signs Reviewed: Yes Appearance: Positive: Well-Appearing, No Pain Distress Skin: Positive: Warm, Skin Color Reflects Adequate Perfusion Head/Face: Positive: Normal Head/Face Inspection Eyes: Positive: EOMI ENT: Positive: Normal ENT inspection, Nasal congestion, Nasal drainage, TMs normal Neck: Positive: Nontender Respiratory/Lung Sounds: Positive: Wheezes - faint wheeze bilateral, no distress. Cardiovascular: Positive: RRR. Negative: Murmur Abdomen Description: Negative: Distended Musculoskeletal: Positive: Strength/ROM Intact Neurological: Positive: Sensory/Motor Intact, Alert, Oriented to Person Place, Time, CN Intact II-III Psychiatric: Positive: Normal - Debbie Coma Scale Best Eye Response: 4 - Spontaneous Best Motor Response: 6 - Obeys Commands Best Verbal Response: 5 - Oriented Coma Scale Total: 15 Diagnostics - Vital Signs Vital Signs Temp Pulse Resp BP Pulse Ox 09/23/18 07:35 97.7 F 116 20 147/57 99 - Laboratory Lab Statement: Any lab studies that have been ordered have been reviewed, and results considered in the medical decision making process. Asthma Course/Dx - Course Course Of Treatment: 37 yr old female with cough, SOB. Plan DC home on prednisone, and MDI. - Diagnoses Provider Diagnoses: Asthma, Upper respiratory infection Discharge - Sign-Out/Discharge Documenting (check all that apply): Patient Departure All imaging exams completed and their final reports reviewed: No Studies - Discharge Plan Condition: Good Disposition: HOME Prescriptions: predniSONE [Prednisone 20 MG TAB] 40 mg PO DAILY #8 tablet Patient Education Materials: Asthma (ED), Hypertension (ED) Referrals: Delfina Carrasquillo DO [Primary Care Provider] - 2 Days - Billing Disposition and Condition Condition: GOOD Disposition: Home
== END 2018-09-23 08:07 | disposition home or self-care (01) ==
LOC: UCCORT 07:26
DX: J45.909 Unspecified asthma, uncomplicated (principal); J06.9 Acute upper respiratory infection, unspecified; Z88.1 Allergy status to other antibiotic agents; Z88.2 Allergy status to sulfonamides; Z88.6 Allergy status to analgesic agent; Z88.8 Allergy status to other drugs, medicaments and biological substances; Z91.041 Radiographic dye allergy status; Z87.891 Personal history of nicotine dependence
CPT/HCPCS: 99212; A9270-GY; G0463; J7512

== ENCOUNTER → 2019-05-08 13:26 | Emergency (ER) | payer OTHER ==
[~2019-05-08 13:26] MED LIST: Dexamethasone IV* 4 MG/ML 5 ML VIAL (20 MG) IVPB ONE; Ketorolac INJ* 30 MG/ML 1 ML VIAL IV PUSH ONE; NS 0.9% 1000 ML** 1,000 ML IV ONE; Ondansetron INJ* 2 MG/ML VIAL IV ONE; diPHENhydraMINE PO* 25 MG PO ONE
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
[2019-05-08 18:11] VITALS: BP 123/76
== END | disposition home or self-care (01) ==
LOC: ED 13:26
DX: R51 Headache (principal); H53.8 Other visual disturbances; R11.0 Nausea; V43.52XA Car driver injured in collision with other type car in traffic accident, initial encounter; Z88.2 Allergy status to sulfonamides; Z88.8 Allergy status to other drugs, medicaments and biological substances; Z88.1 Allergy status to other antibiotic agents; Z91.041 Radiographic dye allergy status; F17.210 Nicotine dependence, cigarettes, uncomplicated
CPT/HCPCS: 70450; 72125; 96361; 96374; 96375; 99282; A9270-GY; J1100; J1885; J2405